=== PATIENT | male | born 1975 | race African-American/Black ===

== ENCOUNTER 2018-01-10 17:56 | Emergency (ER) | payer SELFPAY ==
[2018-01-10] MEDS ORDERED: NORMAL SALINE 1000 ML 1,000 ML IV ONE (18:41)
[2018-01-10] MEDS ORDERED: NORMAL SALINE 1000 ML 1,000 ML IV PRN (18:41)
--- NOTE | 2018-01-10 18:43 | ER Document Report ---
ED Medical Screen (RME) - General Chief Complaint: ETOH Abuse Stated Complaint: ETOH Time Seen by Provider: 01/10/18 18:41 Notes: 42 years old male with a history of alcohol abuse presents today after drinking 24 cans of beer an hour ago. Requesting detox program. Denies any suicidal or homicidal ideation. Denies any drug abuse. Denies any other additional symptoms Appears under the influence of alcohol, very slow to answer the questions. TRAVEL OUTSIDE OF THE [place] IN LAST 30 DAYS: No - Related Data Allergies/Adverse Reactions: No Known Allergies Allergy (Verified 01/10/18 18:01) Past Medical History - Social History Chew tobacco use (# tins/day): No Frequency of alcohol use: Heavy Drug Abuse: None Renal/ Medical History: Denies: Hx Peritoneal Dialysis Physical Exam - Vital signs Vitals: Temp Pulse Resp BP Pulse Ox 98.6 F 98 16 131/79 H 98 01/10/18 18:12 01/10/18 18:12 01/10/18 18:12 01/10/18 18:12 01/10/18 18:12 Course - Vital Signs Vital signs: Temp Pulse Resp BP Pulse Ox 98.6 F 98 16 131/79 H 98 01/10/18 18:12 01/10/18 18:12 01/10/18 18:12 01/10/18 18:12 01/10/18 18:12
[2018-01-10 19:20] LABS: ABSOLUTE EOSINOPHILS # (AUTO) 0.2 10^3/uL (0.0-0.6); ABSOLUTE LYMPHOCYTES (AUTO) 3.7 10^3/uL (0.5-4.7); ABSOLUTE MONOCYTES (AUTO) 0.7 10^3/uL (0.1-1.4); BASOPHILS % (AUTO) 0.6 % (0-2); EOSINOPHILS % (AUTO) 1.9 % (0-6); HEMATOCRIT 44.6 % (37.9-51.0); HEMOGLOBIN 15.7 g/dL (13.5-17.0); LYMPHOCYTES % (AUTO) 43.2 % (13-45); MEAN CORPUSCULAR HEMOGLOBIN 32.1 pg (27.0-33.4); MEAN CORPUSCULAR HGB CONC 35.3 g/dL (32.0-36.0); MEAN CORPUSCULAR VOLUME 91 fl (80-97); MONOCYTES % (AUTO) 7.7 % (3-13); PLATELET COUNT 279 10^3/uL (150-450); RED BLOOD COUNT 4.89 10^6/uL (4.35-5.55); RED CELL DISTRIBUTION WIDTH 13.4 % (11.5-14.0); SEGMENTED NEUTROPHILS % (AUTO) 46.6 % (42-78); TOTAL CELLS COUNTED % (AUTO) 100 %; WHITE BLOOD COUNT 8.6 10^3/uL (4.0-10.5)
[2018-01-10 19:38] LABS: ALANINE AMINOTRANSFERASE 20 U/L (21-72); ALBUMIN 4.6 g/dL (3.5-5.0); ALKALINE PHOSPHATASE 105 U/L (38-126); ANION GAP 12 (5-19); ASPARTATE AMINO TRANSFERASE 49 U/L (17-59); BILIRUBIN,DIRECT 0.2 mg/dL (0.0-0.4); BILIRUBIN,TOTAL 0.7 mg/dL (0.2-1.3); BLOOD UREA NITROGEN 12 mg/dL (7-20); CARBON DIOXIDE 29 mmol/L (22-30); CHLORIDE 104 mmol/L (98-107); GLUCOSE 98 mg/dL (75-110); POTASSIUM 4.4 mmol/L (3.6-5.0); SODIUM 145.4 mmol/L (137-145); TOTAL PROTEIN 8.6 g/dL (6.3-8.2)
[2018-01-10 19:50] LABS: ACETAMINOPHEN < 10 ug/mL (10-30); SALICYLATE < 1.0 mg/dL (2.0-20.0)
[2018-01-10 19:51] LABS: ALCOHOL 394 mg/dL (NONE DETECTED)
--- NOTE | 2018-01-10 20:22 | ER Document Report ---
ED General - General Chief Complaint: ETOH Abuse Stated Complaint: ETOH Time Seen by Provider: 01/10/18 18:41 Notes: Patient is a 42-year-old male with a past medical history of abuse, currently homeless who presents by EMS apparently for being intoxicated. The patient denies any complaints. He did not contact EMS. He states that he drank 24 beers prior to arrival today. Admits to long-standing history of alcohol abuse. Denies any additional complaints. States this is a typical drinking pattern for him. He denies any acute medical complaints. History is otherwise limited secondary to the patient's intoxication. TRAVEL OUTSIDE OF THE [place] IN LAST 30 DAYS: No - Related Data Allergies/Adverse Reactions: No Known Allergies Allergy (Verified 01/10/18 18:01) Past Medical History - General Information source: Patient - Social History Smoking Status: Current Every Day Smoker Chew tobacco use (# tins/day): No Frequency of alcohol use: Heavy Drug Abuse: None Lives with: Homeless Family History: Reviewed & Not Pertinent Patient has suicidal ideation: No Patient has homicidal ideation: No Renal/ Medical History: Denies: Hx Peritoneal Dialysis Review of Systems - Review of Systems Notes: Constitutional: Negative for fever. HENT: Negative for sore throat. Eyes: Negative for visual changes. Cardiovascular: Negative for chest pain. Respiratory: Negative for shortness of breath. Gastrointestinal: Negative for abdominal pain, vomiting or diarrhea. Genitourinary: Negative for dysuria. Musculoskeletal: Negative for back pain. Skin: Negative for rash. Neurological: Negative for headaches, weakness or numbness. 10 point ROS negative except as marked above and in HPI. Physical Exam - Vital signs Vitals: Temp Pulse Resp BP Pulse Ox 98.6 F 98 16 131/79 H 98 01/10/18 18:12 01/10/18 18:12 01/10/18 18:12 01/10/18 18:12 01/10/18 18:12 Notes: PHYSICAL EXAMINATION: GENERAL: Intoxicated, lethargic but wakes to loud voice HEAD: Atraumatic, normocephalic. EYES: Pupils equal round and reactive to light, extraocular movements intact, sclera anicteric, conjunctiva are normal. ENT: nares patent, oropharynx clear without exudates. Moist mucous membranes. NECK: Normal range of motion, supple without lymphadenopathy LUNGS: Breath sounds clear to auscultation bilaterally and equal. No wheezes rales or rhonchi. HEART: Regular rate and rhythm without murmurs ABDOMEN: Soft, nontender, normoactive bowel sounds. No guarding, no rebound. No masses appreciated. EXTREMITIES: Normal range of motion, no pitting or edema. No cyanosis. NEUROLOGICAL: No focal neurological deficits. Moves all extremities spontaneously and on command. PSYCH: Intoxicated SKIN: Warm, Dry, normal turgor, no rashes or lesions noted. Course - Re-evaluation Re-evalutation: 01/10/18 20:22 Patient presents with acute alcohol intoxication without any additional acute complaints. Admits to heavy alcohol use today. No evidence of trauma on exam. Patient was monitored in the emergency department until they were clinically sober. Able to ambulate and talking clear sentences prior to discharge. Tolerating oral intake without difficulty. The patient has been instructed to seek help for alcohol detoxification. Will discharge and return precautions and follow-up recommendations. - Vital Signs Vital signs: Temp Pulse Resp BP Pulse Ox 98.6 F 98 16 131/79 H 98 01/10/18 18:12 01/10/18 18:12 01/10/18 18:38 01/10/18 18:12 01/10/18 18:12 - Laboratory Result Diagrams: 01/10/18 19:00 01/10/18 19:00 Laboratory results interpreted by me: 01/10/18 19:00 Sodium 145.4 H ALT 20 L Total Protein 8.6 H Salicylates < 1.0 L Acetaminophen < 10 L Serum Alcohol 394 H* Discharge - Discharge Clinical Impression: Alcohol abuse Alcohol intoxication Qualifiers: Complication of substance-induced condition: uncomplicated Qualified Code(s): F10.920 - Alcohol use, unspecified with intoxication, uncomplicated Condition: Good Disposition: HOME, SELF-CARE Additional Instructions: You were seen in the emergency department today for being drunk. Being seen in the emergency department after drinking alcohol is a serious indicator that you have a problem with alcohol. You should seek help with the attached resources for your problem drinking. Please return to the emergency room immediately if you experience any concerning symptoms including high fevers, severe headache, chest pain, difficulty breathing, abdominal pain, slurred speech, numbness or weakness in your arms or legs, or any other symptom that concerns you.
[2018-01-11 01:28] VITALS: BP 130/74
--- NOTE | 2018-01-11 08:05 | EKG REPORT ---
SEVERITY:- NORMAL ECG - SINUS RHYTHM : Confirmed by: Emerson Dietz MD 11-Jan-2018 08:04:35
== END 2018-01-11 01:30 | disposition home or self-care (01) ==
LOC: ER 17:56
DX: F10.129 Alcohol abuse with intoxication, unspecified (principal); Z59.0 Homelessness; F17.200 Nicotine dependence, unspecified, uncomplicated
CPT/HCPCS: 93005; 99284; 96360; 96361; 36415; 80307 ×3; 85025; 80053; 93010; J7030

== ENCOUNTER 2018-02-26 08:35 | Emergency (ER) | payer SELFPAY ==
[2018-02-26] MEDS ORDERED: ASPIRIN 81 MG TABLET, CHEWABLE PO ONE (09:56)
--- NOTE | 2018-02-26 09:59 | ER Document Report ---
ED Medical Screen (RME) - General Chief Complaint: Chest Pain > 30 Stated Complaint: WEAKNESS Time Seen by Provider: 02/26/18 09:56 Information source: Patient, Law Enforcement, [facility] Records Notes: 42-year-old male with no reported past medical history presents in police custody after they were called out to a store where the patient was sleeping. At that time he requested transfer to the hospital and is currently complaining of chest pain, productive cough. Patient states chest pain has been present for approximately 3 days and has been constant. I have greeted and performed a rapid initial assessment of this patient. A comprehensive ED assessment and evaluation of the patient, analysis of test results and completion of medical decision making process we will be contacted by additional ED providers. PHYSICAL EXAMINATION: Vital signs reviewed GENERAL: Well-appearing, well-nourished and in no acute distress. LUNGS: No respiratory distress Musculoskeletal: Normal range of motion NEUROLOGICAL: Normal speech, normal gait. PSYCH: Normal mood, normal affect. SKIN: Warm, Dry, normal turgor, no rashes or lesions noted. TRAVEL OUTSIDE OF THE [place] IN LAST 30 DAYS: No - HPI Onset: Other Onset/Duration: Constant Quality of pain: Achy, Burning Severity: Mild Associated Symptoms: Chest pain, Cough (productive), Shortness of breath Exacerbated by: Denies Relieved by: Denies Similar symptoms previously: Yes Recently seen / treated by doctor: No - Related Data Frequency of alcohol use: Occasional Allergies/Adverse Reactions: No Known Allergies Allergy (Verified 02/26/18 08:55) Past Medical History Renal/ Medical History: Denies: Hx Peritoneal Dialysis Physical Exam - Vital signs Vitals: Temp Pulse Resp BP Pulse Ox 97.9 F 76 16 121/86 H 100 02/26/18 09:30 02/26/18 09:30 02/26/18 09:30 02/26/18 09:30 02/26/18 09:30 Course - Vital Signs Vital signs: Temp Pulse Resp BP Pulse Ox 97.9 F 76 16 121/86 H 100 02/26/18 09:30 02/26/18 09:30 02/26/18 09:30 02/26/18 09:30 02/26/18 09:30
[2018-02-26 10:54] LABS: ABSOLUTE BASOPHILS # (AUTO) 0.1 10^3/uL (0.0-0.2); ABSOLUTE EOSINOPHILS # (AUTO) 0.2 10^3/uL (0.0-0.6); ABSOLUTE LYMPHOCYTES (AUTO) 3.5 10^3/uL (0.5-4.7); ABSOLUTE MONOCYTES (AUTO) 0.5 10^3/uL (0.1-1.4); BASOPHILS % (AUTO) 1.5 % (0-2); EOSINOPHILS % (AUTO) 1.9 % (0-6); HEMATOCRIT 42.2 % (37.9-51.0); HEMOGLOBIN 14.9 g/dL (13.5-17.0); LYMPHOCYTES % (AUTO) 37.8 % (13-45); MEAN CORPUSCULAR HEMOGLOBIN 32.8 pg (27.0-33.4); MEAN CORPUSCULAR HGB CONC 35.2 g/dL (32.0-36.0); MEAN CORPUSCULAR VOLUME 93 fl (80-97); MONOCYTES % (AUTO) 5.2 % (3-13); PLATELET COUNT 294 10^3/uL (150-450); RED BLOOD COUNT 4.52 10^6/uL (4.35-5.55); RED CELL DISTRIBUTION WIDTH 13.6 % (11.5-14.0); SEGMENTED NEUTROPHILS % (AUTO) 53.6 % (42-78); TOTAL CELLS COUNTED % (AUTO) 100 %; WHITE BLOOD COUNT 9.3 10^3/uL (4.0-10.5)
[2018-02-26 11:17] LABS: ALANINE AMINOTRANSFERASE 23 U/L (21-72); ALBUMIN 4.9 g/dL (3.5-5.0); ALKALINE PHOSPHATASE 83 U/L (38-126); ANION GAP 14 (5-19); ASPARTATE AMINO TRANSFERASE 48 U/L (17-59); BILIRUBIN,DIRECT 0.2 mg/dL (0.0-0.4); BILIRUBIN,TOTAL 0.5 mg/dL (0.2-1.3); BLOOD UREA NITROGEN 12 mg/dL (7-20); CALCIUM 9.3 mg/dL (8.4-10.2); CARBON DIOXIDE 30 mmol/L (22-30); CHLORIDE 103 mmol/L (98-107); CREATINE KINASE 537 U/L (55-170); GLUCOSE 92 mg/dL (75-110); POTASSIUM 4.1 mmol/L (3.6-5.0); TOTAL PROTEIN 8.8 g/dL (6.3-8.2)
--- NOTE | 2018-02-26 11:26 | EKG REPORT ---
SEVERITY:- NORMAL ECG - SINUS RHYTHM : Confirmed by: Vanessa Jacobs 26-Feb-2018 11:26:00
[2018-02-26 11:27] LABS: CREATINE KINASE MB 4.87 ng/mL (<4.55); TROPONIN I < 0.012 ng/mL
--- NOTE | 2018-02-26 11:57 | RADIOLOGY REPORT (SQ) ---
EXAM DESCRIPTION: CHEST 2 VIEWS COMPLETED DATE/TIME: 02/26/2018 11:12 am REASON FOR STUDY: chest pain COMPARISON: None. EXAM PARAMETERS: NUMBER OF VIEWS: two views TECHNIQUE: Digital Frontal and Lateral radiographic views of the chest acquired. RADIATION DOSE: NA LIMITATIONS: none FINDINGS: LUNGS AND PLEURA: No opacities, masses or pneumothorax. No pleural effusion. MEDIASTINUM AND HILAR STRUCTURES: No masses or contour abnormalities. HEART AND VASCULAR STRUCTURES: Heart normal size. No evidence for failure. BONES: No acute findings. HARDWARE: None in the chest. OTHER: No other significant finding. IMPRESSION: No acute abnormality of the lungs. No focal airspace opacity. TECHNICAL DOCUMENTATION: JOB ID: [id number] [employer]- All Rights Reserved Reading location - IP/workstation name: [email or web address]
[2018-02-26 12:08] LABS: URINE AMPHETAMINES SCREEN NEGATIVE; URINE BARBITURATES SCREEN NEGATIVE; URINE BENZODIAZEPINES SCREEN NEGATIVE; URINE COCAINE SCREEN NEGATIVE; URINE MARIJUANA (THC) SCREEN NEGATIVE; URINE METHADONE SCREEN NEGATIVE; URINE PHENCYCLIDINE SCREEN NEGATIVE
[2018-02-26] MEDS ORDERED: METOCLOPRAMIDE HCL ORAL SOLN 10 MG/10 ML UDCUP PO ONE (14:50)
[2018-02-26] MEDS ORDERED: LIDOCAINE 2% VISCOUS SOLN 20 ML UDCUP PO ONE (14:50)
[2018-02-26] MEDS ORDERED: MAG HYDROX/AL HYDROX/SIMETH SUSP 30 ML UDCUP PO ONE (14:50)
--- NOTE | 2018-02-26 15:02 | ER Document Report ---
ED General - General Chief Complaint: Chest Pain > 30 Stated Complaint: WEAKNESS Time Seen by Provider: 02/26/18 09:56 Mode of Arrival: Ambulatory Information source: Patient TRAVEL OUTSIDE OF THE [place] IN LAST 30 DAYS: No - HPI Patient complains to provider of: Weakness Onset: Other - 42-year-old man who was detained by the police for public intoxication and trespassing that requested to be transported to the emergency room for evaluation of generalized weakness that he developed upon being arrested. He states that his primary issue is that he has a bad alcoholic but has no desire to stop drinking at this time. He denies fevers or chills, denies abdominal pain diarrhea constipation dysuria rashes endorses vague chest pain some low-grade headache rest of history is limited secondary to patient's refusal to communicate. - Related Data Allergies/Adverse Reactions: No Known Allergies Allergy (Verified 02/26/18 08:55) Past Medical History - General Information source: Patient, Law Enforcement, [facility] Records - Social History Smoking Status: Current Every Day Smoker Frequency of alcohol use: Occasional Drug Abuse: None Family History: Reviewed & Not Pertinent Patient has suicidal ideation: No Patient has homicidal ideation: No Renal/ Medical History: Denies: Hx Peritoneal Dialysis Review of Systems - Review of Systems -: Yes All other systems reviewed and negative Physical Exam - Vital signs Vitals: Temp Pulse Resp BP Pulse Ox 97.9 F 76 16 121/86 H 100 02/26/18 09:30 02/26/18 09:30 02/26/18 09:30 02/26/18 09:30 02/26/18 09:30 - General General appearance: Appears well, Alert - HEENT Head: Normocephalic, Atraumatic Eyes: Normal Pupils: PERRL - Respiratory Respiratory status: No respiratory distress Chest status: Nontender Breath sounds: Normal Chest palpation: Normal - Cardiovascular Rhythm: Regular Heart sounds: Normal auscultation Murmur: No - Abdominal Inspection: Normal Distension: No distension Bowel sounds: Normal Tenderness: Nontender Organomegaly: No organomegaly - Back Back: Normal, Nontender - Extremities General upper extremity: Normal inspection, Nontender, Normal color, Normal ROM , Normal temperature General lower extremity: Normal inspection, Nontender, Normal color, Normal ROM , Normal temperature, Normal weight bearing. No: Stepan's sign - Neurological Neuro grossly intact: Yes Cognition: Normal Orientation: AAOx4 [place] Coma Scale Eye Opening: Spontaneous [place] Coma Scale Verbal: Oriented [place] Coma Scale Motor: Obeys Commands [place] Coma Scale Total: 15 Speech: Normal Motor strength normal: LUE, RUE, LLE, RLE Sensory: Normal - Psychological Associated symptoms: Normal affect, Normal mood Course - Re-evaluation Re-evalutation: 02/26/18 17:51 42-year-old that presents after being arrested for trespassing for generalized weakness and malaise is a chronic alcoholic says that that is his problem has no desire to stop drinking. We will plan for troponin x2 monitoring in the emergency department reassessment and labs. EKG is nondiagnostic. Upon evaluation the patient is sleeping in his room with his head under the covers refuses to answer questions but intermittently will respond when prompted repeatedly. Negative initial troponin negative second troponin, unremarkable labs, chest pain-free at this time neurologically intact. Do not believe that this patient warrants further investigation at this time, he appears hemodynamically stable and overall well. Current plan will be for this patient undergo discharge with return precautions and encouraged follow-up for alcohol cessation as well as smoking cessation. - Vital Signs Vital signs: Temp Pulse Resp BP Pulse Ox 97.9 F 76 12 130/83 H 96 02/26/18 09:30 02/26/18 09:30 02/26/18 15:00 02/26/18 15:00 02/26/18 15:00 - Laboratory Result Diagrams: 02/26/18 10:30 02/26/18 10:30 Laboratory results interpreted by me: 02/26/18 02/26/18 10:30 10:30 Sodium 147.0 H Creatine Kinase 537 H CK-MB (CK-2) 4.87 H Total Protein 8.8 H Discharge - Discharge Clinical Impression: Alcohol abuse, Malaise and fatigue Chest pain Qualifiers: Chest pain type: unspecified Qualified Code(s): R07.9 - Chest pain, unspecified Condition: Good Disposition: HOME, SELF-CARE Instructions: Chronic Alcoholism ([facility]), Chest Pain of Unclear Cause ([facility]) Additional Instructions: You were seen today in the emergency department for your generalized weakness and fatigue. You had an evaluation including blood tests as well as an x-ray and markers for damage to your heart. No obvious cause was identified for the discomfort that she had. You do note that you are drinking alcohol heavily and have no desire to stop. You should stop smoking cigarettes, if you decide to stop drinking you should seek help. Return for worsening chest pain, shortness of breath fevers or chills. Otherwise schedule an appointment with your primary physician this week for reevaluation. Forms: Smoking Cessation Education Referrals: [facility] [Outside] - Follow up as needed
[2018-02-26 15:44] VITALS: BP 130/83
--- NOTE | 2018-02-28 09:35 | EKG REPORT ---
SEVERITY:- NORMAL ECG - SINUS RHYTHM : Confirmed by: Vanessa Jacobs 28-Feb-2018 09:33:44
== END 2018-02-26 15:44 | disposition home or self-care (01) ==
LOC: ER 08:35
DX: R07.9 Chest pain, unspecified (principal); F10.10 Alcohol abuse, uncomplicated; R53.81 Other malaise; R53.83 Other fatigue; R53.1 Weakness; F17.200 Nicotine dependence, unspecified, uncomplicated
CPT/HCPCS: 93005; 99285; 36415; 82553; 82550; 85025; 80053; 84484; 80307; 71046; 93010; J3490

== ENCOUNTER 2018-02-27 18:42 | Emergency (ER) | payer SELFPAY ==
[2018-02-27] MEDS ORDERED: ASPIRIN 81 MG TABLET, CHEWABLE PO ONE (19:38)
[2018-02-27 19:57] LABS: ABSOLUTE BASOPHILS # (AUTO) 0.1 10^3/uL (0.0-0.2); ABSOLUTE EOSINOPHILS # (AUTO) 0.2 10^3/uL (0.0-0.6); ABSOLUTE MONOCYTES (AUTO) 0.6 10^3/uL (0.1-1.4); EOSINOPHILS % (AUTO) 2.8 % (0-6); HEMOGLOBIN 13.3 g/dL (13.5-17.0); TOTAL CELLS COUNTED % (AUTO) 100 %
[2018-02-27 20:01] LABS: INTERNATIONAL RATION (INR) 0.85; PROTHROMBIN TIME 12.1 SEC (11.4-15.4)
[2018-02-27 20:09] LABS: ABSOLUTE LYMPHOCYTES (AUTO) 3.6 10^3/uL (0.5-4.7); BASOPHILS % (AUTO) 1.7 % (0-2); HEMATOCRIT 37.3 % (37.9-51.0); LYMPHOCYTES % (AUTO) 47.8 % (13-45); MEAN CORPUSCULAR HEMOGLOBIN 33.3 pg (27.0-33.4); MEAN CORPUSCULAR HGB CONC 35.6 g/dL (32.0-36.0); MEAN CORPUSCULAR VOLUME 94 fl (80-97); MONOCYTES % (AUTO) 8.4 % (3-13); PLATELET COUNT 240 10^3/uL (150-450); RED BLOOD COUNT 3.99 10^6/uL (4.35-5.55); RED CELL DISTRIBUTION WIDTH 13.4 % (11.5-14.0); SEGMENTED NEUTROPHILS % (AUTO) 39.3 % (42-78); WHITE BLOOD COUNT 7.6 10^3/uL (4.0-10.5)
[2018-02-27 20:23] LABS: ALANINE AMINOTRANSFERASE 27 U/L (21-72); ALBUMIN 4.2 g/dL (3.5-5.0); ALKALINE PHOSPHATASE 121 U/L (38-126); ANION GAP 14 (5-19); ASPARTATE AMINO TRANSFERASE 45 U/L (17-59); BILIRUBIN,DIRECT 0.3 mg/dL (0.0-0.4); BILIRUBIN,TOTAL 0.5 mg/dL (0.2-1.3); BLOOD UREA NITROGEN 12 mg/dL (7-20); CALCIUM 8.6 mg/dL (8.4-10.2); CARBON DIOXIDE 27 mmol/L (22-30); CHLORIDE 108 mmol/L (98-107); CREATINE KINASE 596 U/L (55-170); GLUCOSE 110 mg/dL (75-110); POTASSIUM 4.1 mmol/L (3.6-5.0); SODIUM 148.5 mmol/L (137-145); TOTAL PROTEIN 7.4 g/dL (6.3-8.2)
[2018-02-27 20:34] LABS: CREATINE KINASE MB 4.55 ng/mL (<4.55); TROPONIN I < 0.012 ng/mL
--- NOTE | 2018-02-27 20:43 | RADIOLOGY REPORT (SQ) ---
EXAM DESCRIPTION: CHEST SINGLE VIEW COMPLETED DATE/TIME: 02/27/2018 8:04 pm REASON FOR STUDY: CP COMPARISON: 02/26/2018 EXAM PARAMETERS: NUMBER OF VIEWS: One view. TECHNIQUE: Single frontal radiographic view of the chest acquired. RADIATION DOSE: NA LIMITATIONS: None. FINDINGS: LUNGS AND PLEURA: No opacities, masses or pneumothorax. No pleural effusion. MEDIASTINUM AND HILAR STRUCTURES: No masses. Contour normal. HEART AND VASCULAR STRUCTURES: Heart normal in size. Normal vasculature. BONES: No acute findings. HARDWARE: None in the chest. OTHER: No other significant finding. IMPRESSION: NO ACUTE RADIOGRAPHIC FINDING IN THE CHEST. TECHNICAL DOCUMENTATION: JOB ID: [id number] [employer]- All Rights Reserved Reading location - IP/workstation name: [email or web address]
--- NOTE | 2018-02-28 00:15 | ER Document Report ---
ED General - General Chief Complaint: Chest Pain Stated Complaint: CHEST PAIN Time Seen by Provider: 02/27/18 19:30 Notes: Patient is a 42-year-old male obviously intoxicated who presents to the emergency department chief complaint chest pain. Patient does not very forthcoming with any information. Patient opens his eyes and looks at you but then will not answer initial questions. Report obtained from EMS that was done given to nursing staff states [facility] was initially called to a intoxicated person outside of a restaurant. [facility] states upon their evaluation they noted the patient was intoxicated and then started complaining of chest pains. [facility] called for EMS assistance and the patient was transported to the emergency room. Patient tells nursing staff that he has chest pain in the center of his chest, patient does not answer any of my questions initially asked of him. Patient does follow commands as far as physical exam is concerned but will not talk. Nursing staff states they did see the patient get up and walk to use the restroom with no obvious distress and the patient has spoke in full sentences to them stating he did have chest pain. Per nursing staff patient has no medical problems, is on no medications, has no allergies. TRAVEL OUTSIDE OF THE [place] IN LAST 30 DAYS: No - Related Data Allergies/Adverse Reactions: No Known Allergies Allergy (Verified 02/26/18 08:55) Past Medical History - General Information source: Emergency Med Personnel - Social History Smoking Status: Current Every Day Smoker Frequency of alcohol use: Heavy Family History: Reviewed & Not Pertinent Patient has suicidal ideation: No Patient has homicidal ideation: No Renal/ Medical History: Denies: Hx Peritoneal Dialysis Review of Systems - Review of Systems -: Yes ROS unobtainable due to patient's medical condition - Patient is heavily intoxicated and will not answer any of my questions. Physical Exam - Vital signs Vitals: Pulse Ox 97 02/27/18 18:54 - Notes Notes: GENERAL: Alert, is choosing to be nonverbal to me, no acute distress. Smells heavily of EtOH HEAD: Normocephalic, atraumatic. EYES: Pupils equal, round, and reactive to light. Extraocular movements intact. ENT: Oral mucosa moist, tongue midline. NECK: Full range of motion. Supple. Trachea midline. LUNGS: Clear to auscultation bilaterally, no wheezes, rales, or rhonchi. No respiratory distress. HEART: Regular rate and rhythm. No murmur ABDOMEN: Soft, non-tender. Non-distended. Bowel sounds present in all 4 quadrants. EXTREMITIES: Moves all 4 extremities spontaneously. No edema, normal radial and dorsalis pedis pulses bilaterally. No cyanosis. 5 out of 5 strength all 4 extremities. SKIN: Warm, dry, normal turgor. No rashes or lesions noted. Course - Re-evaluation Re-evalutation: It was found by nursing staff via EMS that [employer] was initially questioning the patient due to him being intoxicated in public when the patient then stated he had chest pain. EMS then arrived on the scene found and obviously intoxicated patient complaining of chest pain. [facility] and EMS state that there was no fall or injury to the patient. States he was just sitting outside of a restaurant. Nursing staff is stating that upon EMS transferring patient care the patient was able to stand up and walk with no difficulties, and use the bathroom. They also noted that he was able to speak in full sentences stating that he has chest pain. No CT warranted at this time due to no history of trauma. Patient will not answer questions that I ask of him but does follow simple commands as far as physical exam goes 02/28/18 00:07 Patient was able to walk around the emergency room with a steady gait. Patient was able to tell me that it is February 2018 and he did know that he was at [facility]. Patient is currently denying any chest pain or pressure at this time. Patient appears to be clinically sober at this time he is asking for food. Discussed patient's lab results with him at bedside and offered him a food tray. Discussed his need to stop partaking and EtOH beverages And that I will give him information on [facility] to continue with his medical care. - Vital Signs Vital signs: Temp Pulse Resp BP Pulse Ox 98.2 F 98 16 138/85 H 99 02/28/18 00:50 02/28/18 00:50 02/28/18 00:50 02/28/18 00:50 02/28/18 00:50 - Laboratory Result Diagrams: 02/27/18 19:00 02/27/18 19:00 Laboratory results interpreted by me: 02/27/18 02/27/18 19:00 19:00 RBC 3.99 L Hgb 13.3 L Hct 37.3 L Seg Neutrophils % 39.3 L Lymphocytes % 47.8 H Sodium 148.5 H Chloride 108 H Creatine Kinase 596 H Discharge - Discharge Clinical Impression: Alcohol abuse Chest pain Qualifiers: Chest pain type: other chest pain Qualified Code(s): R07.89 - Other chest pain Condition: Stable Disposition: HOME, SELF-CARE Instructions: Acute Alcohol Intoxication ([facility]), Chest Pain of Unclear Cause ( [facility]) Additional Instructions: As we discussed you have been seen and treated in the emergency department for your chest pain. It does appear that you had partaking in alcohol this evening. You need to stop drinking alcohol or it will inevitably make your liver fail. I have given you phone numbers for the [place] [facility] with which you should follow-up to get your continued medical care. Please return to the emergency room for any other concerning symptoms. Referrals: [facility] [Provider Group] - Follow up as needed
[2018-02-28 00:50] VITALS: BP 138/85
--- NOTE | 2018-03-01 09:40 | EKG REPORT ---
SEVERITY:- NORMAL ECG - SINUS RHYTHM : Confirmed by: Vanessa Jacobs 01-Mar-2018 09:39:31
== END 2018-02-28 00:50 | disposition home or self-care (01) ==
LOC: ER 18:42
DX: R07.9 Chest pain, unspecified (principal); F10.129 Alcohol abuse with intoxication, unspecified; F17.200 Nicotine dependence, unspecified, uncomplicated
CPT/HCPCS: 36415; 71045; 80053; 82550; 82553; 84484; 85025; 85610; 93005; 93010; 99285

== ENCOUNTER 2018-02-28 03:01 | Emergency (ER) | payer SELFPAY ==
--- NOTE | 2018-02-28 04:52 | ER Document Report ---
ED General - General Chief Complaint: Chest Pain Stated Complaint: CHEST PAIN Time Seen by Provider: 02/28/18 03:24 Notes: Patient is a 42-year-old male presenting to the emergency department complaining of generalized chest pain. Patient was to this facility yesterday after being confronted by [facility] and brought into the emergency room for generalized weakness. In reviewing past charts patient's workup was negative at that time. Patient was also confronted by Kami SOLO this evening for public intoxication. [facility] and EMS states the patient was then complaining of chest pain which is why he presents to the emergency room via EMS. Patient's workup this evening was also negative with 2- troponins and no EKG changes. Patient stated he no longer had chest pain, asked for some food and was then discharged. Patient re-presents currently because he states he has no place to go. Patient states he is homeless. When asked if he just needs a place to go and wants us to contact social work to assist him in shelters he says yes and then he also says he does have chest pain. Patient will not elaborate on the chest pain that he has. Patient smells of EtOH but is conscious alert and oriented x4. Patient denies any past medical history, denies taking any medications, denies any medical allergies. TRAVEL OUTSIDE OF THE [place] IN LAST 30 DAYS: No - Related Data Allergies/Adverse Reactions: No Known Allergies Allergy (Verified 02/26/18 08:55) Past Medical History - General Information source: Patient - Social History Smoking Status: Current Every Day Smoker Frequency of alcohol use: Heavy Lives with: Homeless Family History: Reviewed & Not Pertinent Patient has suicidal ideation: No Patient has homicidal ideation: No Renal/ Medical History: Denies: Hx Peritoneal Dialysis Review of Systems - Review of Systems Constitutional: No symptoms reported EENT: No symptoms reported Cardiovascular: See HPI Respiratory: No symptoms reported Gastrointestinal: No symptoms reported Genitourinary: No symptoms reported Male Genitourinary: No symptoms reported Musculoskeletal: No symptoms reported Skin: No symptoms reported Hematologic/Lymphatic: No symptoms reported Neurological/Psychological: No symptoms reported Physical Exam - Notes Notes: GENERAL: Alert, interacts well. No acute distress. Smells of EtOH. HEAD: Normocephalic, atraumatic. EYES: Pupils equal, round, and reactive to light. Extraocular movements intact. ENT: Oral mucosa moist, tongue midline. NECK: Full range of motion. Supple. Trachea midline. LUNGS: Clear to auscultation bilaterally, no wheezes, rales, or rhonchi. No respiratory distress. HEART: Regular rate and rhythm. No murmur ABDOMEN: Soft, non-tender. Non-distended. Bowel sounds present in all 4 quadrants. EXTREMITIES: Moves all 4 extremities spontaneously. No edema, normal radial and dorsalis pedis pulses bilaterally. No cyanosis. BACK: no cervical, thoracic, lumbar midline tenderness. No saddle anesthesia, normal distal neurovascular exam. NEUROLOGICAL: Alert and oriented x3. Normal speech. cranial nerves II through XII grossly intact PSYCH: Normal affect, normal mood. SKIN: Warm, dry, normal turgor. No rashes or lesions noted. Course - Re-evaluation Re-evalutation: 02/28/18 04:[address] Alvarado who states to get one more troponin. Troponin at this time is negative. EKG continues to reveal no ST segment changes. When I discussed these results with patient at bedside he asked if he could sleep for longer. Discussed with charge nurse the patient will stay in the emergency room awaiting social work consult in the morning for homeless shelters. Patient is denying any chest pain at this time, just asking to sleep. Vitals stable, nursing notes reviewed. 02/28/18 06:39 Nursing staff brings to my attention that the patient eloped. Discharge - Discharge Disposition: ELOPED
--- NOTE | 2018-02-28 09:35 | EKG REPORT ---
SEVERITY:- NORMAL ECG - SINUS RHYTHM : Confirmed by: Vanessa Jacobs 28-Feb-2018 09:33:39
== END 2018-02-28 06:33 | disposition left against medical advice (07) ==
LOC: ER 03:01
DX: R07.9 Chest pain, unspecified (principal); R53.1 Weakness; F17.200 Nicotine dependence, unspecified, uncomplicated
CPT/HCPCS: 36415; 84484; 93005; 93010; 99281

== ENCOUNTER 2018-03-01 04:00 | Emergency (ER) | payer SELFPAY ==
[2018-03-01 04:05] VITALS: BP 150/83
--- NOTE | 2018-03-01 04:51 | ER Document Report ---
ED General - General Chief Complaint: Chest Pain Stated Complaint: CHEST PAIN Time Seen by Provider: 03/01/18 04:33 Notes: Patient is a 42-year-old male well-known to the emergency room complaining of chest pain. Initially states "I just made a place to sleep." Upon further questioning he then states he has left-sided chest pain Patient states he has chest pain over his left chest that is non radiating. Patient denies pain changes upon inspiration or palpation. Patient states is the same pain that he had last night. Patient states the pain has not changed at all since he eloped from the emergency room yesterday. Patient admits that he has no place to go. Patient denies shortness of breath, diaphoresis, vomiting, nausea, diarrhea, fever. Patient does admit to drinking alcohol this evening. Past medical history: None Medications: None Allergies: None TRAVEL OUTSIDE OF THE [place] IN LAST 30 DAYS: No - Related Data Allergies/Adverse Reactions: No Known Allergies Allergy (Verified 02/26/18 08:55) Past Medical History - General Information source: Patient - Social History Smoking Status: Current Every Day Smoker Frequency of alcohol use: Heavy Lives with: Homeless Family History: Reviewed & Not Pertinent Patient has suicidal ideation: No Patient has homicidal ideation: No Renal/ Medical History: Denies: Hx Peritoneal Dialysis Review of Systems - Review of Systems Constitutional: No symptoms reported EENT: No symptoms reported Cardiovascular: See HPI Respiratory: No symptoms reported Gastrointestinal: No symptoms reported Genitourinary: No symptoms reported Male Genitourinary: No symptoms reported Musculoskeletal: No symptoms reported Skin: No symptoms reported Hematologic/Lymphatic: No symptoms reported Neurological/Psychological: No symptoms reported Physical Exam - Vital signs Vitals: Temp Pulse Resp BP Pulse Ox 97.8 F 119 H 18 150/83 H 97 03/01/18 04:04 03/01/18 04:04 03/01/18 04:04 03/01/18 04:04 03/01/18 04:04 - Notes Notes: GENERAL: Alert, interacts well. No acute distress. Smells heavily of EtOH, patient is noted to have EKG stickers still on his body, also noted to have the Tegaderm where his IV was placed yesterday with no IV access, no bleeding at site. HEAD: Normocephalic, atraumatic. EYES: Pupils equal, round, and reactive to light. Extraocular movements intact. ENT: Oral mucosa moist, tongue midline. [Nares patent, no nasal septal hematoma , TM's intact.] NECK: Full range of motion. Supple. Trachea midline. LUNGS: Clear to auscultation bilaterally, no wheezes, rales, or rhonchi. No respiratory distress. HEART: Tachycardic rate and rhythm. No murmur ABDOMEN: Soft, non-tender. Non-distended. Bowel sounds present in all 4 quadrants. EXTREMITIES: Moves all 4 extremities spontaneously. No edema, normal radial and dorsalis pedis pulses bilaterally. No cyanosis. BACK: no cervical, thoracic, lumbar midline tenderness. No saddle anesthesia, normal distal neurovascular exam. NEUROLOGICAL: Alert and oriented x3. Normal speech. cranial nerves II through XII grossly intact. SKIN: Warm, dry, normal turgor. No rashes or lesions noted. Course - Re-evaluation Re-evalutation: 03/01/18 04:51 Patient was to this facility 3 times over the last 72 hours for generalized weakness and chest pain. I personally saw the patient twice within 24 hours for chest pain. Patient had 3 total negative troponins. Patient states that the chest pain that he had was the same that he had last night when I personally evaluated him. Patient states the pain has not increased or decreased or changed at all. Patient's EKG shows sinus rhythm QTc [address] segment elevations or depressions or T wave inversions. Discussed this case at length with Dr. Henriquez who states with multiple negative troponins and no change in the patient's chest pain since his last visit to the emergency room after he eloped and a negative EKG there is no need to repeat the troponin. Dr. Henriquez states the Pt. can be d/c at this time. Vitals stable. - Vital Signs Vital signs: Temp Pulse Resp BP Pulse Ox 97.8 F 119 H 18 150/83 H 97 03/01/18 04:04 03/01/18 04:04 03/01/18 04:04 03/01/18 04:04 03/01/18 04:04 Discharge - Discharge Clinical Impression: Alcohol abuse Chest pain Qualifiers: Chest pain type: unspecified Qualified Code(s): R07.9 - Chest pain, unspecified Condition: Stable Disposition: HOME, SELF-CARE Instructions: Chest Pain of Unclear Cause ([facility]), Chronic Alcoholism ([facility])
== END 2018-03-01 04:59 | disposition home or self-care (01) ==
LOC: ER 04:00
DX: R07.9 Chest pain, unspecified (principal); F10.10 Alcohol abuse, uncomplicated; F17.200 Nicotine dependence, unspecified, uncomplicated
CPT/HCPCS: 99283

== ENCOUNTER 2018-04-08 00:26 | Emergency (ER) | payer SELFPAY ==
--- NOTE | 2018-04-08 01:29 | RADIOLOGY REPORT (SQ) ---
EXAM DESCRIPTION: XR CHEST 1 VIEW COMPLETED DATE/TME: 04/08/2018 00:55 CLINICAL HISTORY: 42 years, Male, cp COMPARISON: 02/27/2018 chest NUMBER OF VIEWS: 1 TECHNIQUE: AP portable chest LIMITATIONS: None. FINDINGS: The heart size is stable. Calcified granuloma right upper lobe. Lungs are otherwise clear. No pneumothorax IMPRESSION: No acute cardiopulmonary process copyright 2010 [employer]- All Rights Reserved
--- NOTE | 2018-04-08 02:17 | ER Document Report ---
ED General - General Chief Complaint: Chest Pain Stated Complaint: CHEST PAIN Time Seen by Provider: 04/08/18 00:53 Cannot obtain history due to: Intoxicated, Uncooperative Notes: Patient is a 42-year-old male, homeless, chronic alcohol abuse, presents stating that he is having palpitations in triage, then states that he is having chest pain to the nurse upon entering his room, denies any complaints to me. Patient admits to drinking heavily today. States that he would like to sleep in the room. History is otherwise limited secondary to the patient's degree of intoxication. TRAVEL OUTSIDE OF THE [place] IN LAST 30 DAYS: No - Related Data Allergies/Adverse Reactions: No Known Allergies Allergy (Verified 02/26/18 08:55) Past Medical History - General Information source: Patient Cannot obtain history due to: Intoxicated - Social History Smoking Status: Current Every Day Smoker Frequency of alcohol use: Heavy Drug Abuse: None Lives with: Homeless Family History: Reviewed & Not Pertinent Renal/ Medical History: Denies: Hx Peritoneal Dialysis Review of Systems - Review of Systems Notes: Constitutional: Negative for fever. HENT: Negative for sore throat. Eyes: Negative for visual changes. Cardiovascular: Positive for intermittent chest pain, palpitations Respiratory: Negative for shortness of breath. Gastrointestinal: Negative for abdominal pain, vomiting or diarrhea. Genitourinary: Negative for dysuria. Musculoskeletal: Negative for back pain. Skin: Negative for rash. Neurological: Negative for headaches, weakness or numbness. 10 point ROS negative except as marked above and in HPI. Physical Exam - Vital signs Vitals: Temp Pulse Resp BP Pulse Ox 97.7 F 83 16 133/78 H 98 04/08/18 00:48 04/08/18 00:48 04/08/18 00:48 04/08/18 00:48 04/08/18 00:48 Interpretation: Normal Notes: PHYSICAL EXAMINATION: GENERAL: Intoxicated, no acute distress HEAD: Atraumatic, normocephalic. EYES: Pupils equal round and reactive to light, extraocular movements intact, sclera anicteric, conjunctiva are normal. ENT: nares patent, oropharynx clear without exudates. Moist mucous membranes. NECK: Normal range of motion, supple without lymphadenopathy LUNGS: Breath sounds clear to auscultation bilaterally and equal. No wheezes rales or rhonchi. HEART: Regular rate and rhythm without murmurs ABDOMEN: Soft, nontender, normoactive bowel sounds. No guarding, no rebound. No masses appreciated. EXTREMITIES: Normal range of motion, no pitting or edema. No cyanosis. NEUROLOGICAL: No focal neurological deficits. Moves all extremities spontaneously and on command. PSYCH: Intoxicated SKIN: Warm, Dry, normal turgor, no rashes or lesions noted. Course - Re-evaluation Re-evalutation: 04/08/18 02:30 Patient presents acutely intoxicated, states that he is here because of chest pain initially then states it is because of palpitations, then denies any complaints. It appears that the patient is primarily here because he is homeless and intoxicated. Alcohol level is 309. Troponin negative. Chest x- ray clear. EKG unremarkable. I do not clinically suspect any acute life threatening pathology. Patient has repeatedly requested to remain here in sleep, does not want to undergo further medical evaluation. I have informed patient that he should not be using the emergency department for this purpose, advised rehab, homeless intermediate information provided. At this time will discharge with return precautions and follow-up recommendations. Verbal discharge instructions given a the bedside and opportunity for questions given. Medication warnings reviewed. Patient is in agreement with this plan and has verbalized understanding of return precautions. - Vital Signs Vital signs: Temp Pulse Resp BP Pulse Ox 97.7 F 83 16 133/78 H 98 04/08/18 00:48 04/08/18 00:48 04/08/18 00:48 04/08/18 00:48 04/08/18 00:48 - Laboratory Laboratory results interpreted by me: 04/08/18 01:16 Serum Alcohol 309 H* - Diagnostic Test Radiology reviewed: Image reviewed, Reports reviewed Radiology results interpreted by me: 04/08/18 02:32 Chest x-ray: No acute infiltrate or pneumothorax - EKG Interpretation by Me Additional EKG results interpreted by me: 04/08/18 02:32 Sinus rhythm, rate 89. No ST elevations or depressions. QTC is 429. Discharge - Discharge Clinical Impression: Alcohol abuse, Homelessness Alcohol intoxication Qualifiers: Complication of substance-induced condition: uncomplicated Qualified Code(s): F10.920 - Alcohol use, unspecified with intoxication, uncomplicated Condition: Good Disposition: HOME, SELF-CARE Additional Instructions: You were seen in the emergency department today for being drunk. Being seen in the emergency department after drinking alcohol is a serious indicator that you have a problem with alcohol. The emergency department is not an appropriate place to come when you are intoxicated or do not have elsewhere to sleep. Please return to the emergency room immediately if you experience any concerning symptoms including high fevers, severe headache, chest pain, difficulty breathing, abdominal pain, slurred speech, numbness or weakness in your arms or legs, or any other symptom that concerns you.
[2018-04-08 02:40] VITALS: BP 121/75
--- NOTE | 2018-04-09 00:16 | EKG REPORT ---
SEVERITY:- BORDERLINE ECG - SINUS RHYTHM BORDERLINE T ABNORMALITIES, ANT-LAT LEADS : Confirmed by: Vanessa Jacobs 09-Apr-2018 00:15:36
== END 2018-04-08 02:40 | disposition home or self-care (01) ==
LOC: ER 00:26
DX: F10.120 Alcohol abuse with intoxication, uncomplicated (principal); Y90.8 Blood alcohol level of 240 mg/100 ml or more; Z59.0 Homelessness; R07.9 Chest pain, unspecified; R00.2 Palpitations; F17.200 Nicotine dependence, unspecified, uncomplicated
CPT/HCPCS: 36415; 71045; 80307; 84484; 93005; 93010; 99285

== ENCOUNTER 2018-04-08 16:56 | Emergency (ER) | payer SELFPAY ==
[2018-04-08 17:21] VITALS: BP 144/77
--- NOTE | 2018-04-09 00:16 | EKG REPORT ---
SEVERITY:- NORMAL ECG - SINUS RHYTHM : Confirmed by: Vanessa Jacobs 09-Apr-2018 00:15:28
== END 2018-04-08 18:30 | disposition left against medical advice (07) ==
LOC: ER 16:56
DX: Z53.21 Procedure and treatment not carried out due to patient leaving prior to being seen by health care provider (principal)
CPT/HCPCS: 93005; 93010

== ENCOUNTER 2018-04-09 00:13 | Emergency (ER) | payer SELFPAY ==
[2018-04-09] MEDS ORDERED: NORMAL SALINE 1000 ML 1,000 ML IV ONE (00:28)
--- NOTE | 2018-04-09 00:32 | ER Document Report ---
ED General - General Stated Complaint: CHEST PAIN/ETOH Time Seen by Provider: 04/09/18 00:23 Notes: Patient is a 42-year-old male presents with alcohol intoxication. He was found walking around the [place] intoxicated. The security guards therefore called the police. The police called the ambulance because they said that the patient was complaining of chest pain. Patient has been seen here a few times in the last few days because of alcohol intoxication. He always mentions chest pain but then eventually says that he wants a place to stay. Patient was discharged home the previous morning once he sobered up. Patient denies any chest pain at this time. It is hard to determine if he had a earlier the patient will not really answer his question. He does admit to drinking alcohol on a regular basis. He says that he just drinks alcohol consistently throughout the day. He cannot really tell me exactly how much he drinks in a day otherwise. He denies any traumas. No injuries. No headache. No current pain. No other complaints at this time. TRAVEL OUTSIDE OF THE [place] IN LAST 30 DAYS: No - Related Data Allergies/Adverse Reactions: No Known Allergies Allergy (Verified 02/26/18 08:55) Past Medical History - Social History Smoking Status: Unknown if Ever Smoked Frequency of alcohol use: Heavy Drug Abuse: None Family History: Reviewed & Not Pertinent Renal/ Medical History: Denies: Hx Peritoneal Dialysis Review of Systems - Review of Systems Notes: My Normal Review Basic REVIEW OF SYSTEMS: CONSTITUTIONAL : Denies fever, chills, or sweats. Denies recent illness. EENT: Denies eye, ear, throat, or mouth pain or symptoms. Denies nasal or sinus congestion. CARDIOVASCULAR: Had chest pain earlier which is now resolved. RESPIRATORY: Denies cough, cold, or chest congestion. Denies shortness of breath, difficulty breathing, or wheezing. GASTROINTESTINAL: Denies abdominal pain. Denies nausea, vomiting, or diarrhea. MUSCULOSKELETAL: Denies neck or back pain or joint pain or swelling. SKIN: Denies rash or skin lesions. NEUROLOGICAL: Denies altered mental status or loss of consciousness. Denies headache. Denies weakness or paralysis or loss of use of either side. Denies problems with gait or speech. Denies sensory or motor loss. ALL OTHER SYSTEMS REVIEWED AND NEGATIVE. Physical Exam - Vital signs Vitals: Resp BP 12 123/82 04/09/18 01:09 04/09/18 01:09 - Notes Notes: General Appearance: Well nourished, alert be seen toxic and with alcohol. Smells of alcohol., cooperative, no acute distress, no obvious discomfort. Vitals: reviewed, See vital signs table. Head: no swelling or tenderness to the head Eyes: PERRL, EOMI, Conjuctiva clear Mouth: No decreasd moisture Throat: No tonsillar inflammation, No airway obstruction, No lymphadenopathy Neck: Supple, no neck tenderness Lungs: No wheezing, No rales, No rhonci, No accessory muscle use, good air exchange bilaterally. Heart: Normal rate, Regular rythm, No murmur, no rub Abdomen: Normal BS, soft, No rigidity, No abdominal tenderness, No guarding, no rebound, no abdominal masses, no organomegaly Extremities: strength 5/5 in all extremities, good pulses in all extremities, no swelling or tenderness in the extremities, no edema. Skin: warm, dry, appropriate color, no rash Neuro: speech garbled from alcohol use, oriented x 2, normal affect, responds appropriately to most questions. Metric facial movements bilaterally. Patient has good strength in all 4 extremities. Gait not tested due to intoxication. Course - Re-evaluation Re-evalutation: 04/09/18 01:55 I reassessed the patient. He is currently sleeping comfortably but I did awaken him and he is easily arousable. He still obviously very intoxicated. I will patient go back to sleep and then reassess again later. 04/09/18 05:08 Evaluation patient is up and walk around the room. He is walking without ataxia.. His speech is not slurred. He is clinically sober at this time. He request to be discharged. I will discharge him. Patient told the police that he had chest pain however the patient denied any further chest pain when he arrived here his troponin and EKG are negative. I feel he is safe to be discharged home. I talked him at length about the importance of trying to cut back on alcohol intoxication. I informed him that he continues to drink that he will probably end up with liver failure and could possibly from this. Patient acknowledges what I am saying however he does not seem very interested in my warning. Patient encouraged to return to ER anytime if he feels unwell, has chest pain, difficulty breathing, or has any concerns. Patient will be discharged home. Dictation of this chart was performed using voice recognition software; therefore, there may be some unintended grammatical errors. - Vital Signs Vital signs: Temp Pulse Resp BP Pulse Ox 98.1 F 17 138/75 H 100 04/09/18 04:10 04/09/18 04:01 04/09/18 04:00 04/09/18 04:00 - EKG Interpretation by Me Additional EKG results interpreted by me: 04/09/18 00:32 EKG is reviewed and interpreted by me. EKG shows sinus rhythm with a rate of [address] segment elevation or depression. No ischemic T wave inversions. MN interval, QRS duration, QT intervals are within normal range. Discharge - Discharge Clinical Impression: Alcohol intoxication Qualifiers: Complication of substance-induced condition: uncomplicated Qualified Code(s): F10.920 - Alcohol use, unspecified with intoxication, uncomplicated Chest pain Qualifiers: Chest pain type: unspecified Qualified Code(s): R07.9 - Chest pain, unspecified Condition: Good Disposition: HOME, SELF-CARE Additional Instructions: Please gradually cut back on your alcohol intake over several days until you are o longer drinking alcohol. If you continue to drink alcohol you will likely develop liver failure and will eventually . please return to the Er if you have recurrent chest pain, difficulty breathing, or feel unwell.
[2018-04-09 04:17] VITALS: BP 138/75
--- NOTE | 2018-04-09 19:32 | EKG REPORT ---
SEVERITY:- NORMAL ECG - SINUS RHYTHM : Confirmed by: Vanessa Jacobs 09-Apr-2018 19:32:07
== END 2018-04-09 04:17 | disposition home or self-care (01) ==
LOC: ER 00:13
DX: F10.120 Alcohol abuse with intoxication, uncomplicated (principal); R07.9 Chest pain, unspecified
CPT/HCPCS: 93005; 99283; 96360; 36415; 84484; 93010; J7030

== ENCOUNTER 2018-04-10 02:55 | Emergency (ER) | payer SELFPAY ==
--- NOTE | 2018-04-10 03:41 | ER Document Report ---
ED General - General Chief Complaint: Chest Pain Stated Complaint: HEART ISSUE Time Seen by Provider: 04/10/18 03:40 Notes: Patient is 42-year-old male who presents with alcohol intoxication with complaint of chest pain. He is done the several nights in a row. He currently says he does not have any chest pain. This is consistent with his previous visits as each time he comes he tells the police however this spring and had this chest pain but then when he arrived he says his chest pain is gone. Patient is typically too intoxicated to discharge right away. That is the case again denies patient is intoxicated. He drinks alcohol every night. He denies any recent falls or traumas. He has no other complaints at this time. TRAVEL OUTSIDE OF THE [place] IN LAST 30 DAYS: No - Related Data Allergies/Adverse Reactions: No Known Allergies Allergy (Verified 02/26/18 08:55) Past Medical History - Social History Smoking Status: Current Every Day Smoker Frequency of alcohol use: Heavy Drug Abuse: None Family History: Reviewed & Not Pertinent Renal/ Medical History: Denies: Hx Peritoneal Dialysis Review of Systems - Review of Systems Notes: My Normal Review Basic REVIEW OF SYSTEMS: CONSTITUTIONAL : Denies fever, chills, or sweats. Denies recent illness. EENT: Denies eye, ear, throat, or mouth pain or symptoms. Denies nasal or sinus congestion. CARDIOVASCULAR: Chest pain which is now resolved. RESPIRATORY: Denies cough, cold, or chest congestion. Denies shortness of breath, difficulty breathing, or wheezing. GASTROINTESTINAL: Denies abdominal pain. Denies nausea, vomiting, or diarrhea. MUSCULOSKELETAL: Denies neck or back pain or joint pain or swelling. SKIN: Denies rash or skin lesions. NEUROLOGICAL: Denies altered mental status or loss of consciousness. Denies headache. Denies weakness or paralysis or loss of use of either side. Denies problems with gait or speech. Denies sensory or motor loss. PSYCHIATRIC: Denies anxiety or stress or depression. ALL OTHER SYSTEMS REVIEWED AND NEGATIVE. Physical Exam - Vital signs Vitals: Resp Pulse Ox 12 98 04/10/18 03:30 04/10/18 03:30 - Notes Notes: General Appearance: Well nourished, alert, cooperative, no acute distress, no obvious discomfort. As of alcohol. Answers questions appropriately. Some slurring of speech due to alcohol intoxication. Vitals: reviewed, See vital signs table. Head: no swelling or tenderness to the head Eyes: PERRL, EOMI, Conjuctiva clear Mouth: No decreasd moisture Throat: No tonsillar inflammation, No airway obstruction, No lymphadenopathy Neck: Supple, no neck tenderness, No thyromegaly Lungs: No wheezing, No rales, No rhonci, No accessory muscle use, good air exchange bilaterally. Heart: Normal rate, Regular rythm, No murmur, no rub Abdomen: Normal BS, soft, No rigidity, No abdominal tenderness, No guarding, no rebound, Extremities: strength 5/5 in all extremities, good pulses in all extremities, no swelling or tenderness in the extremities, no edema. Skin: warm, dry, appropriate color, no rash Neuro: Some slurred speech due to alcohol intoxication, oriented x 2, normal affect, responds appropriately to questions. Cranial nerves II through XII are intact. Distal sensation intact. Patient moves all extremities without difficulty. Course - Re-evaluation Re-evalutation: 04/10/18 06:11 I reevaluate the patient. He is awake and alert. He is answering questions appropriate. I had him stand and move around. He has normal balance. He has no signs of ataxia. He is clinically sober at this time. I talked to him again at length about to cut back on alcohol intake. I talked to him again about how continued alcohol use will most likely lead to liver failure and possibly . He shows understanding of this but again I am not convinced that he will follow through with my advice. Currently has no other requests at this time and wants to be discharged home. Dictation of this chart was performed using voice recognition software; therefore, there may be some unintended grammatical errors. - Vital Signs Vital signs: Temp Pulse Resp BP Pulse Ox 13 111/67 96 04/10/18 05:01 04/10/18 05:01 04/10/18 05:01 - EKG Interpretation by Me Additional EKG results interpreted by me: 04/10/18 03:40 EKG is reviewed and interpreted by me. EKG shows sinus rhythm with rate of [address] segment elevation or depression. HI interval, QRS duration, QTc intervals are within normal range. Old EKG for comparison is from yesterday. Discharge - Discharge Clinical Impression: Alcohol abuse Condition: Good Disposition: HOME, SELF-CARE Additional Instructions: Please stop drinking alcohol on a daily basis. Continued alcohol abuse will lead to and liver failure. Please return to ER at any time if you want help with alcohol abuse or if you feel that you are going through alcohol withdrawal. Please slowly cut back your alcohol intake over the course of a week until you are no longer drinking alcohol at all. Please return to ER if you have recurrent worsening chest pain, difficulty breathing, or feel unwell. Follow up with a doctor in 2-3 days for reevaluation.
[2018-04-10 06:25] VITALS: BP 124/75
--- NOTE | 2018-04-10 18:00 | EKG REPORT ---
SEVERITY:- NORMAL ECG - SINUS RHYTHM : Confirmed by: Vanessa Jacobs 10-Apr-2018 17:58:53
== END 2018-04-10 06:29 | disposition home or self-care (01) ==
LOC: ER 02:55
DX: R07.9 Chest pain, unspecified (principal); F10.129 Alcohol abuse with intoxication, unspecified; F17.200 Nicotine dependence, unspecified, uncomplicated
CPT/HCPCS: 36415; 84484; 93005; 93010; 99285

== ENCOUNTER 2018-04-10 11:35 | Inpatient (IN) | payer SELFPAY ==
[2018-04-10] MEDS ORDERED: NALOXONE HCL INJ 2 MG/2 ML DISP.SYRIN IV ONE (12:44)
--- NOTE | 2018-04-10 12:45 | ER Document Report ---
ED General - General Chief Complaint: Psych Problem Stated Complaint: POSSIBLE ETOH Time Seen by Provider: 04/10/18 12:38 TRAVEL OUTSIDE OF THE [place] IN LAST 30 DAYS: No - HPI Notes: Patient is a 42-year-old male that presents to the emergency department for chief complaint of altered mental status. [place] [employer] called EMS. [employer] told EMS that patient was seen wandering around the mall for about 45 minutes when he sat down on a bench. When they confronted him he was slurring his speech and having a hard time staying awake. EMS reported he was drinking alcohol. HPI is limited because of patient's current mental status. There was no reported trauma. Patient is not answering questions currently. Past Medical History: Reviewed in chart Past Surgical History: Reviewed in chart Social History: History of alcohol abuse Family History: Reviewed and noncontributory for presenting illness Allergies: Reviewed, see documented allergy list. REVIEW OF SYSTEMS: Unable to obtain because of current mental status PHYSICAL EXAMINATION: Vital signs reviewed, nursing noted reviewed. GENERAL: Intoxicated HEAD: Atraumatic, normocephalic. EYES: Eyes appear normal, extraocular movements intact, sclera anicteric, conjunctiva are normal. ENT: nares patent, oropharynx clear without exudates. Dry mucous membranes. NECK: Normal range of motion, supple without lymphadenopathy LUNGS: Breath sounds clear to auscultation bilaterally and equal. No wheezes rales or rhonchi. HEART: Tachycardic rate and regular rhythm without murmurs ABDOMEN: Soft, nontender, normoactive bowel sounds. No rebound, guarding, or rigidity. No masses appreciated. EXTREMITIES: Nontender, good range of motion, no pitting or edema. NEUROLOGICAL: GCS 11, Moves all extremities spontaneously Motor and sensory grossly intact on exam. PSYCH: Intoxicated SKIN: Warm, Dry, normal turgor, no rashes or lesions noted on exposed skin - Related Data Allergies/Adverse Reactions: No Known Allergies Allergy (Verified 02/26/18 08:55) Past Medical History - Social History Smoking Status: Unknown if Ever Smoked Family History: Reviewed & Not Pertinent Patient has suicidal ideation: No - unable to assess Patient has homicidal ideation: No - unable to assess Renal/ Medical History: Denies: Hx Peritoneal Dialysis Physical Exam - Vital signs Vitals: Temp Pulse Resp BP Pulse Ox 98.3 F 119 H 20 155/82 H 99 04/10/18 11:47 04/10/18 11:47 04/10/18 11:47 04/10/18 11:47 04/10/18 11:47 Course - Re-evaluation Re-evalutation: 04/10/18 12:51 Vitals reviewed. Nursing notes reviewed. Patient is mildly tachycardic with dry mucous membranes. He has a long history of alcohol abuse on chart review. Patient started on IV fluids and given a dose of thiamine. CT brain will be obtained although there is no report of trauma or external signs of injury. He has a GCS of 11 and is not talking to me to state whether or not he did actually drink alcohol today. 04/10/18 13:57 Patient's alcohol level is only 62. He came back with a critically high Tylenol level and was started on N-acetylcysteine. Patient was just reevaluated and continues to have a GCS of 11. He is protecting his airway and following commands. It is difficult to understand anything he is trying to mumble. The intent of his Tylenol overdose and the timing is unknown because of his current mentation. I did discuss his care with poison control. Patient case was discussed with Dr. Bach who is accepted patient for admission to the ICU. Patient is on telemetry monitoring now and hemodynamically stable. Laboratory 04/10/18 04/10/18 12:17 12:17 WBC 7.1 RBC 4.01 L Hgb 12.8 L Hct 37.2 L MCV 93 MCH 32.0 MCHC 34.4 RDW 12.9 Plt Count 199 Seg Neutrophils % 63.1 Lymphocytes % 25.0 Monocytes % 9.8 Eosinophils % 1.0 Basophils % 1.1 Absolute Neutrophils 4.5 Absolute Lymphocytes 1.8 Absolute Monocytes 0.7 Absolute Eosinophils 0.1 Absolute Basophils 0.1 Sodium 145.8 H Potassium 4.3 Chloride 108 H Carbon Dioxide 24 Anion Gap 14 BUN 13 Creatinine 0.71 Est GFR ( Amer) > 60 Est GFR (Non-Af Amer) > 60 Glucose 101 Calcium 9.1 Total Bilirubin 0.7 Direct Bilirubin 0.3 Neonat Total Bilirubin Not Reportable Neonat Direct Bilirubin Not Reportable Neonat Indirect Bili Not Reportable AST 50 ALT 26 Alkaline Phosphatase 77 Total Protein 7.6 Albumin 4.6 Salicylates < 1.0 L Acetaminophen 175 H* Serum Alcohol 62 - Vital Signs Vital signs: Temp Pulse Resp BP Pulse Ox 98.3 F 119 H 19 159/90 H 99 04/10/18 11:47 04/10/18 11:47 04/10/18 14:09 04/10/18 14:09 04/10/18 14:09 - Laboratory Result Diagrams: 04/10/18 12:17 04/10/18 12:17 Laboratory results interpreted by me: 04/10/18 04/10/18 12:17 12:17 RBC 4.01 L Hgb 12.8 L Hct 37.2 L Sodium 145.8 H Chloride 108 H Salicylates < 1.0 L Acetaminophen 175 H* - EKG Interpretation by Me Additional EKG results interpreted by me: 04/10/18 13:15 Interpreted by myself 1312: Sinus tachycardia, rate 109, normal axis, no ectopy, no STEMI Critical Care Note - Critical Care Note Total time excluding time spent on procedures (mins): 35 Comments: Critical care time 35 exclusive from separate billable procedures for a patient requiring complex medical decision making, and high potential for clinical deterioration. Time spent obtaining history from patient or surrogate, discussions with consultants, development of treatment plan with patient or surrogate, evaluation of patient's response to treatment, examination of patient, ordering and performing treatments and interventions, ordering and review of laboratory studies, re-evaluation of patient's condition, ordering and review of radiographic studies and review of old charts Discharge - Discharge Clinical Impression: Hypernatremia Tylenol overdose Qualifiers: Encounter type: initial encounter Injury intent: undetermined intent Qualified Code(s): T39.1X4A - Poisoning by 4-Aminophenol derivatives, undetermined, initial encounter Altered mental status Qualifiers: Altered mental status type: coma Coma depth: Bassam coma 9-12 Coma timing: unspecified coma timing Qualified Code(s): R40.2420 - Bassam coma scale score 9-12, unspecified time Condition: Stable Disposition: ADMITTED INPATIENT Admitting Provider: Hospitalist Unit Admitted: ICU
[2018-04-10] MEDS ORDERED: NORMAL SALINE 1000 ML 1,000 ML IV ONE (12:51)
[2018-04-10] MEDS ORDERED: THIAMINE HCL 100 MG, FOLIC ACID 1 MG in NORMAL SALINE 250 ML IV ONE (12:51)
[2018-04-10 13:09] LABS: ABSOLUTE BASOPHILS # (AUTO) 0.1 10^3/uL (0.0-0.2); ABSOLUTE EOSINOPHILS # (AUTO) 0.1 10^3/uL (0.0-0.6); ABSOLUTE LYMPHOCYTES (AUTO) 1.8 10^3/uL (0.5-4.7); ABSOLUTE MONOCYTES (AUTO) 0.7 10^3/uL (0.1-1.4); ABSOLUTE NEUT (AUTO) 4.5 10^3/uL (1.7-8.2); BASOPHILS % (AUTO) 1.1 % (0-2); HEMATOCRIT 37.2 % (37.9-51.0); HEMOGLOBIN 12.8 g/dL (13.5-17.0); MEAN CORPUSCULAR HGB CONC 34.4 g/dL (32.0-36.0); MEAN CORPUSCULAR VOLUME 93 fl (80-97); MONOCYTES % (AUTO) 9.8 % (3-13); PLATELET COUNT 199 10^3/uL (150-450); RED BLOOD COUNT 4.01 10^6/uL (4.35-5.55); RED CELL DISTRIBUTION WIDTH 12.9 % (11.5-14.0); SEGMENTED NEUTROPHILS % (AUTO) 63.1 % (42-78); TOTAL CELLS COUNTED % (AUTO) 100 %; WHITE BLOOD COUNT 7.1 10^3/uL (4.0-10.5)
[2018-04-10 13:18] LABS: ALANINE AMINOTRANSFERASE 26 U/L (21-72); ALBUMIN 4.6 g/dL (3.5-5.0); ALCOHOL 62 mg/dL (NONE DETECTED); ALKALINE PHOSPHATASE 77 U/L (38-126); ANION GAP 14 (5-19); ASPARTATE AMINO TRANSFERASE 50 U/L (17-59); BILIRUBIN,DIRECT 0.3 mg/dL (0.0-0.4); BILIRUBIN,TOTAL 0.7 mg/dL (0.2-1.3); BLOOD UREA NITROGEN 13 mg/dL (7-20); CALCIUM 9.1 mg/dL (8.4-10.2); CARBON DIOXIDE 24 mmol/L (22-30); CHLORIDE 108 mmol/L (98-107); GLUCOSE 101 mg/dL (75-110); POTASSIUM 4.3 mmol/L (3.6-5.0); SODIUM 145.8 mmol/L (137-145); TOTAL PROTEIN 7.6 g/dL (6.3-8.2)
[2018-04-10 13:21] LABS: SALICYLATE < 1.0 mg/dL (2.0-20.0)
[2018-04-10 13:27] LABS: ACETAMINOPHEN 175 ug/mL (10-30)
[2018-04-10] MEDS ORDERED: ACETYLCYSTEINE INJ 6000 MG/30 ML IV ONE ×3 (13:45→18:45)
--- NOTE | 2018-04-10 14:25 | PSYCHOLOGICAL NOTE ---
Psych Note - Psych Note Date seen by psych provider: 04/10/18 Time seen by psych provider: 13:30 Psych Note: Reason for consult: ETOH Contact Permissions: Behavioral health is unable to evaluate patient at this time due to AMS. Patient is responding to his name and simple commands but unable to speak at this time. Diagnosis: ETOH abuse per patient hx Medication recommendations as per psychiatric provider, Dr. Ang are as follows: No medication recommendations at this time Patient is currently unable to participate in a psychiatric evaluation due to Tylenol overdose as his Tylenol level was 175. Patient was brought in by EMS after having been found passed out [place] a bench in the mall. It was suspected ETOH abuse as patient was inebriated at the mall in February. Chart review shows 2 prior visits to the ED for ETOH between December 2017 and March 2018. Behavioral health will evaluate at a later time. Consulted Dr. Scanlon in the care and treatment of this patient and ED physician.
[2018-04-10] MEDS ORDERED: NORMAL SALINE 1000 ML 2,000 ML IV ONE (14:30)
[2018-04-10 14:37] LABS: APPEARANCE,URINE CLEAR; BILIRUBIN,URINE NEGATIVE (NEGATIVE); COLOR,URINE YELLOW; GLUCOSE, URINE NEGATIVE (NEGATIVE); KETONES,URINE NEGATIVE (NEGATIVE); LEUKOCYTE ESTERASE,URINE NEGATIVE (NEGATIVE); NITRITE,URINE NEGATIVE (NEGATIVE); PROTEIN,URINE NEGATIVE (NEGATIVE); URINE SPECIFIC GRAVITY 1.027; UROBILINOGEN,URINE NEGATIVE mg/dL (<2.0)
[2018-04-10 14:53] LABS: URINE AMPHETAMINES SCREEN NEGATIVE; URINE BARBITURATES SCREEN NEGATIVE; URINE BENZODIAZEPINES SCREEN NEGATIVE; URINE COCAINE SCREEN NEGATIVE; URINE MARIJUANA (THC) SCREEN NEGATIVE; URINE METHADONE SCREEN NEGATIVE; URINE PHENCYCLIDINE SCREEN NEGATIVE
[2018-04-10] MEDS ORDERED: WATER IV ONE ×3 (15:00→20:00)
[2018-04-10] MEDS ORDERED: ACETYLCYSTEINE IV ONE ×3 (15:00→20:00)
[2018-04-10] MEDS ORDERED: DEXTROSE 5% IV ONE ×3 (15:00→20:00)
[2018-04-10 15:08] LABS: INTERNATIONAL RATION (INR) 1.03
[2018-04-10] MEDS ORDERED: ONDANSETRON HCL INJ/PF 4 MG/2 ML SDV IV PRN (15:14)
[2018-04-10 15:26] LABS: ALANINE AMINOTRANSFERASE 30 U/L (21-72); ALBUMIN 4.2 g/dL (3.5-5.0); ALKALINE PHOSPHATASE 69 U/L (38-126); ASPARTATE AMINO TRANSFERASE 48 U/L (17-59); BILIRUBIN,DIRECT 0.2 mg/dL (0.0-0.4); BILIRUBIN,TOTAL 0.7 mg/dL (0.2-1.3)
--- NOTE | 2018-04-10 15:29 | PDOC H&P ---
History of Present Illness Admission Date/PCP: 04/10/18 14:08 History of Present Illness: MARCIA LYNN is a 42 year old black male patient but by EMS for altered mental status. I tried to get history from the patient he just mumbles and he is unintelligible. Brief history obtained from the ER attending note. Per ER attending note,Patient is a 42-year-old male that presents to the emergency department for chief complaint of altered mental status. Patient was found at the mall intoxicated.[employer] called EMS.[employer] told EMS that patient was seen wandering around the mall for about 45 minutes when he sat down on a bench. When they confronted him he was slurring his s peech and having a hard time staying awake. EMS reported he was drinking alcohol. HPI is limited because of patient's current mental status. There was no reported trauma. Patient is not answering questions currently. His blood work shows elevated Tylenol level of 175 but his blood alcohol level is just 62. Further detailed history and review of system is unobtainable. Social History Smoking Status: Unknown if Ever Smoked - Advance Directive Resuscitation Status: Full Code Family History Family History: Reviewed & Not Pertinent Parental Family History Reviewed: Yes Children Family History Reviewed: Yes Sibling(s) Family History Reviewed.: Yes Medication/Allergy Allergies/Adverse Reactions: No Known Allergies Allergy (Verified 02/26/18 08:55) Review of Systems ROS unobtainable: Due to mental status Physical Exam Vital Signs: Temp Pulse Resp BP Pulse Ox 98.3 F 119 H 19 159/90 H 99 04/10/18 11:47 04/10/18 11:47 04/10/18 14:09 04/10/18 14:09 04/10/18 14:09 Intake & Output 04/09/18 04/10/18 04/11/18 06:59 06:59 06:59 Intake Total 1000 Balance 1000 Weight 68.9 kg General appearance: PRESENT: no acute distress Head exam: PRESENT: atraumatic Eye exam: PRESENT: conjunctiva pink Neck exam: ABSENT: carotid bruit, JVD, lymphadenopathy, thyromegaly Respiratory exam: PRESENT: clear to auscultation chino. ABSENT: rales, rhonchi, wheezes Cardiovascular exam: PRESENT: RRR. ABSENT: diastolic murmur, rubs, systolic murmur GI/Abdominal exam: PRESENT: normal bowel sounds, soft. ABSENT: distended, guarding, mass, organolmegaly, rebound, tenderness Neurological exam: PRESENT: alert, awake Results Laboratory Results: 04/10/18 12:17 04/10/18 12:17 04/10/18 04/10/18 04/10/18 12: 12: 14:07 WBC 7.1 RBC 4.01 L Hgb 12.8 L Hct 37.2 L MCV 93 MCH 32.0 MCHC 34.4 RDW 12.9 Plt Count 199 Seg Neutrophils % 63.1 Lymphocytes % 25.0 Monocytes % 9.8 Eosinophils % 1.0 Basophils % 1.1 Absolute Neutrophils 4.5 Absolute Lymphocytes 1.8 Absolute Monocytes 0.7 Absolute Eosinophils 0.1 Absolute Basophils 0.1 Sodium 145.8 H Potassium 4.3 Chloride 108 H Carbon Dioxide 24 Anion Gap 14 BUN 13 Creatinine 0.71 Est GFR ( Amer) > 60 Est GFR (Non-Af Amer) > 60 Glucose 101 Calcium 9.1 Total Bilirubin 0.7 AST 50 ALT 26 Alkaline Phosphatase 77 Total Protein 7.6 Albumin 4.6 Urine Color YELLOW Urine Appearance CLEAR Urine pH 5.0 Ur Specific [place] 1.027 Urine Protein NEGATIVE Urine Glucose (UA) NEGATIVE Urine Ketones NEGATIVE Urine Blood NEGATIVE Urine Nitrite NEGATIVE Ur Leukocyte Esterase NEGATIVE Urine WBC (Auto) 1 Urine RBC (Auto) 0 Assessment & Plan - Diagnosis (1) Acute encephalopathy, Tylenol overdose Is this a current diagnosis for this admission?: Yes Plan: Patient admitted to ICU for close monitoring. He has been given acetylcysteine and his goal cautiously hydrated. He is on alcohol withdrawal protocol since patient has history of alcohol abuse.
[2018-04-10 15:33] LABS: ACETAMINOPHEN 164 ug/mL (10-30)
[2018-04-10] MEDS: LORAZEPAM INJ 2 MG/1 ML VIAL IV PRN ×2 (15:40→21:00)
--- NOTE | 2018-04-10 16:20 | RADIOLOGY REPORT (SQ) ---
EXAM DESCRIPTION: CT HEAD WITHOUT COMPLETED DATE/TIME: 04/10/2018 4:07 pm REASON FOR STUDY: mental status change COMPARISON: CT from [facility] dated 01/06/2017. TECHNIQUE: Axial images acquired through the brain without intravenous contrast. Images reviewed wi th bone, brain and subdural windows. Images stored on PACS. All CT scanners at this facility use dose modulation, iterative reconstruction, and/or weight based d osing when appropriate to reduce radiation dose to as low as reasonably achievable (ALARA). [facility]: Dose Right [facility]: CareDose [facility]: Dose Right [facility]: Teradose 4D [facility]: SuperCloud RADIATION DOSE: CT Rad equipment meets quality standard of care and radiation dose reduction techniq ues were employed. CTDIvol: 53.2 mGy. DLP: 2354 mGy-cm. mGy. LIMITATIONS: Significant motion artifact. FINDINGS: VENTRICLES: Normal size and contour. CEREBRUM: No masses. No hemorrhage. No midline shift. No evidence for acute infarction. Normal gra y/white matter differentiation. No areas of low density in the white matter. CEREBELLUM: No masses. No hemorrhage. No alteration of density. No evidence for acute infarction. EXTRAAXIAL SPACES: No fluid collections. No masses. ORBITS AND GLOBE: No intra- or extraconal masses. Normal contour of globe without masses. CALVARIUM: No fracture. PARANASAL SINUSES: Mucous membrane thickening. SOFT TISSUES: No mass or hematoma. OTHER: No other significant finding. IMPRESSION: STUDY LIMITED BY MOTION ARTIFACT. NO GROSS ABNORMALITIES. EVIDENCE OF ACUTE STROKE: NO. COMMENT: Quality ID # [id number]: Final reports with documentation of one or more dose reduction techniques (e.g., Automated exposure control, adjustment of the mA and/or kV according to patient size, use of iterative reconstruction technique) TECHNICAL DOCUMENTATION: JOB ID: [id number] [employer]- All Rights Reserved Reading location - IP/workstation name: [email or web address]
[2018-04-10] MEDS: NORMAL SALINE 1000 ML 1,000 ML IV PRN ×2 (16:40→21:07)
[2018-04-10] MEDS: ENOXAPARIN SODIUM INJ 40 MG/0.4 ML DISP.SYRIN SUBCUT SCH (17:22)
[2018-04-10] MEDS: LANSOPRAZOLE 30 MG TAB.RAP.DR PO SCH (17:52)
--- NOTE | 2018-04-10 18:00 | EKG REPORT ---
SEVERITY:- BORDERLINE ECG - SINUS TACHYCARDIA PROBABLE LEFT ATRIAL ABNORMALITY : Confirmed by: Vanessa Jacobs 10-Apr-2018 17:58:48
[2018-04-10] MEDS ORDERED: LORAZEPAM INJ 2 MG/1 ML VIAL ONE ×2 (18:59→23:54)
[2018-04-11] MEDS ORDERED: LORAZEPAM INJ 2 MG/1 ML VIAL IV ONE (00:15)
[2018-04-11] MEDS: NORMAL SALINE 1000 ML 1,000 ML IV PRN ×5 (00:35→22:22)
[2018-04-11 04:06] LABS: ABSOLUTE EOSINOPHILS # (AUTO) 0.2 10^3/uL (0.0-0.6); ABSOLUTE LYMPHOCYTES (AUTO) 2.2 10^3/uL (0.5-4.7); ABSOLUTE MONOCYTES (AUTO) 0.5 10^3/uL (0.1-1.4); ABSOLUTE NEUT (AUTO) 5.6 10^3/uL (1.7-8.2); BASOPHILS % (AUTO) 0.5 % (0-2); EOSINOPHILS % (AUTO) 2.3 % (0-6); HEMATOCRIT 36.8 % (37.9-51.0); HEMOGLOBIN 12.9 g/dL (13.5-17.0); LYMPHOCYTES % (AUTO) 26.4 % (13-45); MEAN CORPUSCULAR HEMOGLOBIN 32.4 pg (27.0-33.4); MEAN CORPUSCULAR HGB CONC 35.1 g/dL (32.0-36.0); MEAN CORPUSCULAR VOLUME 92 fl (80-97); MONOCYTES % (AUTO) 5.6 % (3-13); PLATELET COUNT 169 10^3/uL (150-450); RED BLOOD COUNT 3.99 10^6/uL (4.35-5.55); RED CELL DISTRIBUTION WIDTH 12.8 % (11.5-14.0); SEGMENTED NEUTROPHILS % (AUTO) 65.2 % (42-78); TOTAL CELLS COUNTED % (AUTO) 100 %; WHITE BLOOD COUNT 8.5 10^3/uL (4.0-10.5)
[2018-04-11 04:24] LABS: ALANINE AMINOTRANSFERASE 20 U/L (21-72); ALBUMIN 3.6 g/dL (3.5-5.0); ALKALINE PHOSPHATASE 57 U/L (38-126); ANION GAP 7 (5-19); ASPARTATE AMINO TRANSFERASE 41 U/L (17-59); BILIRUBIN,DIRECT 0.3 mg/dL (0.0-0.4); BILIRUBIN,TOTAL 1.5 mg/dL (0.2-1.3); BLOOD UREA NITROGEN 4 mg/dL (7-20); CALCIUM 8.1 mg/dL (8.4-10.2); CARBON DIOXIDE 24 mmol/L (22-30); CHLORIDE 112 mmol/L (98-107); GLUCOSE 80 mg/dL (75-110); POTASSIUM 3.6 mmol/L (3.6-5.0); SODIUM 142.5 mmol/L (137-145); TOTAL PROTEIN 6.5 g/dL (6.3-8.2)
[2018-04-11] MEDS: LANSOPRAZOLE 30 MG TAB.RAP.DR PO SCH ×2 (05:48→18:06)
[2018-04-11] MEDS: ENOXAPARIN SODIUM INJ 40 MG/0.4 ML DISP.SYRIN SUBCUT SCH (09:00)
[2018-04-11] MEDS ORDERED: HALOPERIDOL LACTATE INJ 5 MG/1 ML VIAL ONE (10:13)
[2018-04-11] MEDS ORDERED: HALOPERIDOL LACTATE INJ 5 MG/1 ML VIAL IV PRN (10:19)
[2018-04-11] MEDS ORDERED: HALOPERIDOL LACTATE INJ 5 MG/1 ML VIAL IV ONE (10:30)
--- NOTE | 2018-04-11 10:39 | PSYCHOLOGICAL NOTE ---
Psych Note - Psych Note Date seen by psych provider: 04/11/18 Time seen by psych provider: 08:55 Psych Note: Reason for consult: overdose Contact Permissions: none given Patient presented to [facility] AMS, it was unclear at the time why; however, he has been seen multiple times while being under the influence of alcohol. Patient was seen in [facility] ICU. Patient discloses he knows he is currently in [facility] because of alcohol. He reports he has no memory of taking any Tylenol. Patient asked when he can leave. He reports drinking since 1999 and denies wanting any assistance with detox. Patient is alert and orientated to person, place, time and circumstance. Pat ient currently denies suicidal and homicidal ideation. Mood and affect is flat. Delusions are absent and behaviour is congruent with an intact reality based presentation ie organized and linear thought processes. Patient presents very guarded. Eye contact is very poor. Intellectual abilities appear to be within normal range. Attention and Concentration is poor. Insight, judgment and impulse control is poor. No medication recommendations at this time Diagnosis: 291.9 (F10.99) Unspecified Alcohol disorder per history Impression/Plan: Patient is recommended for IVC for overnight mental health observation. Patient arrived to [facility] ED with Tylenol overdose as his Tylenol level was 175. Chart review shows 2 prior visits to the ED for ETOH between December 2017 and March 2018. Patient is currently denying wanting to hurt himself; however, will not make eye contact and very guarded. Patient states he drank NyQuil because he has a "sore throat and stuffed up nose." At this time it is unclear if the patient was drinking to get drunk or to harm himself. Patient will be re-evaluated. Dr. Scanlon was consulted on the care and management of this patient; attending physician is in agreement with recommendations and disposition.
[2018-04-11 14:37] LABS: ALANINE AMINOTRANSFERASE 17 U/L (21-72); ALBUMIN 3.6 g/dL (3.5-5.0); ALKALINE PHOSPHATASE 61 U/L (38-126); ASPARTATE AMINO TRANSFERASE 37 U/L (17-59); BILIRUBIN,DIRECT 0.2 mg/dL (0.0-0.4); BILIRUBIN,TOTAL 1.8 mg/dL (0.2-1.3); TOTAL PROTEIN 6.4 g/dL (6.3-8.2)
[2018-04-11 14:41] LABS: ACETAMINOPHEN < 10 ug/mL (10-30)
--- NOTE | 2018-04-11 17:55 | PDOC PROGRESS REPORT ---
Subjective Progress Note for:: 04/11/18 Subjective:: I seen patient resting in bed. He is more awake and alert and oriented to place.His blood works are unremarkable.He is IVCed by psyche. Reason For Visit: ACUTE ENCEPHALOPATHY DUE TO TYLENOL OVERDOSE Physical Exam Vital Signs: Temp Pulse Resp BP Pulse Ox 97.5 F 78 14 138/87 H 100 04/11/18 16:00 04/11/18 16:00 04/11/18 16:00 04/11/18 16:00 04/11/18 16:00 Intake & Output 04/10/18 04/11/18 04/12/18 06:59 06:59 06:59 Intake Total 6343.2 3003 Output Total 5550 4370 Balance 793.2 -1367 Weight 77.2 kg General appearance: PRESENT: no acute distress Eye exam: PRESENT: conjunctiva pink Mouth exam: PRESENT: dry mucosa Neck exam: ABSENT: carotid bruit, JVD, lymphadenopathy, thyromegaly Respiratory exam: PRESENT: clear to auscultation chino. ABSENT: rales, rhonchi, wheezes Cardiovascular exam: PRESENT: RRR. ABSENT: diastolic murmur, rubs, systolic murmur GI/Abdominal exam: PRESENT: normal bowel sounds, soft. ABSENT: distended, guarding, mass, organolmegaly, rebound, tenderness Neurological exam: PRESENT: alert, awake Results Laboratory Results: 04/11/18 03:59 04/11/18 03:59 04/11/18 04/11/18 04/11/18 03:59 03:59 14:02 WBC 8.5 RBC 3.99 L Hgb 12.9 L Hct 36.8 L MCV 92 MCH 32.4 MCHC 35.1 RDW 12.8 Plt Count 169 Seg Neutrophils % 65.2 Lymphocytes % 26.4 Monocytes % 5.6 Eosinophils % 2.3 Basophils % 0.5 Absolute Neutrophils 5.6 Absolute Lymphocytes 2.2 Absolute Monocytes 0.5 Absolute Eosinophils 0.2 Absolute Basophils 0.0 Sodium 142.5 Potassium 3.6 Chloride 112 H Carbon Dioxide 24 Anion Gap 7 BUN 4 L Creatinine 0.47 L Est GFR ( Amer) > 60 Est GFR (Non-Af Amer) > 60 Glucose 80 Calcium 8.1 L Magnesium 2.0 Total Bilirubin 1.5 H 1.8 H AST 41 37 ALT 20 L 17 L Alkaline Phosphatase 57 61 Total Protein 6.5 6.4 Albumin 3.6 3.6 Impressions: Head CT 04/10/18 12:44 IMPRESSION: STUDY LIMITED BY MOTION ARTIFACT. NO GROSS ABNORMALITIES. EVIDENCE OF ACUTE STROKE: NO. Assessment & Plan - Diagnosis (1) Acute encephalopathy, Tylenol overdose Is this a current diagnosis for this admission?: Yes Plan: There some improvement but still confused and reportedly hr verbally threatening the nurses
[2018-04-12] MEDS: LANSOPRAZOLE 30 MG TAB.RAP.DR PO SCH ×3 (06:16→19:42)
--- NOTE | 2018-04-12 09:46 | PDOC PROGRESS REPORT ---
Subjective Progress Note for:: 04/12/18 Subjective:: saw patient this morning in ICU- he wants to go home. he has no new complaints at this time. denies chest pain, sob, n/v, abdominal pain or dizziness. social situation - he has nowhere to live- he lives [address]- states he lives in [place] - has no family. Reason For Visit: ACUTE ENCEPHALOPATHY DUE TO TYLENOL OVERDOSE Physical Exam Vital Signs: Temp Pulse Resp BP Pulse Ox 98.2 F 72 22 H 137/92 H 98 04/12/18 08:00 04/12/18 08:00 04/12/18 08:00 04/12/18 08:00 04/12/18 08:00 Intake & Output 04/11/18 04/12/18 04/13/18 06:59 06:59 06:59 Intake Total 6343.2 5003 Output Total 5550 7095 400 Balance 793.2 -2092 -400 Weight 170 lb 3.15 oz 170 lb 6.677 oz General appearance: PRESENT: no acute distress Head exam: PRESENT: atraumatic, normocephalic Eye exam: PRESENT: EOMI, PERRLA. ABSENT: conjunctival injection, scleral icterus Ear exam: PRESENT: normal external ear exam Mouth exam: PRESENT: tongue midline Neck exam: ABSENT: tracheal deviation Respiratory exam: PRESENT: clear to auscultation chino, symmetrical Cardiovascular exam: PRESENT: +S1, +S2 Pulses: PRESENT: +2 pedal pulses bilateral GI/Abdominal exam: PRESENT: normal bowel sounds, soft. ABSENT: tenderness Extremities exam: ABSENT: joint swelling, pedal edema Neurological exam: PRESENT: alert, awake, oriented to person, oriented to place, oriented to time, oriented to situation, CN II-XII grossly intact Results Laboratory Results: 04/11/18 03:59 04/11/18 03:59 04/11/18 14:02 Total Bilirubin 1.8 H AST 37 ALT 17 L Alkaline Phosphatase 61 Total Protein 6.4 Albumin 3.6 Impressions: Head CT 04/10/18 12:44 IMPRESSION: STUDY LIMITED BY MOTION ARTIFACT. NO GROSS ABNORMALITIES. EVIDENCE OF ACUTE STROKE: NO. Assessment & Plan - Diagnosis (1) Acute encephalopathy, Tylenol overdose Is this a current diagnosis for this admission?: Yes (2) Alcohol intoxication Qualifiers: Complication of substance-induced condition: uncomplicated Qualified Code(s): F10.920 - Alcohol use, unspecified with intoxication, uncomplicated Is this a current diagnosis for this admission?: Yes (3) Homelessness Is this a current diagnosis for this admission?: Yes (4) Hyperbilirubinemia Is this a current diagnosis for this admission?: Yes - Time Time Spent with patient: 35 or more minutes - Plan Summary Plan Summary: AMS- resolved, likely 2/2 alcohol and tylenol OD. Tylenol level as resolved. he's AAOX4. PSYCH is consulted and he's IVC'd for now. not on restraints. he's requesting discharge but i have asked him to stay another 24 hours at least hyperbili- likely related to alcohol abuse- will get RUQ U/S to assess further Alcohol abuse- so signs of withdrawl- doing well- spoke to him about cessation and quitting. he didn't reply back to me. he's on Ativan PRN. will not start valium now as per nursing his haldol dose x1 made him very sleepy yesterday. will monitor for now- will consider valium taper if needed. will start on folic acid, thiamine, and MVI. will check Tobacco abuse- counseled on cessation and once again he didn't reply about quitting. offered him patch but he declined for now Homeless- will consult discharge planners
[2018-04-12] MEDS ORDERED: THIAMINE HCL 100 MG TABLET PO SCH (10:00)
[2018-04-12] MEDS ORDERED: FOLIC ACID 1 MG TABLET PO SCH (10:00)
[2018-04-12] MEDS ORDERED: THIAMINE HCL 100 MG in NORMAL SALINE 50 ML IV SCH (10:00)
[2018-04-12] MEDS: ENOXAPARIN SODIUM INJ 40 MG/0.4 ML DISP.SYRIN SUBCUT SCH (11:01)
[2018-04-12] MEDS: LORAZEPAM INJ 2 MG/1 ML VIAL IV PRN ×2 (14:13→19:38)
[2018-04-12 15:14] LABS: ALANINE AMINOTRANSFERASE 20 U/L (21-72); ALBUMIN 3.9 g/dL (3.5-5.0); ALKALINE PHOSPHATASE 71 U/L (38-126); ASPARTATE AMINO TRANSFERASE 34 U/L (17-59); BILIRUBIN,DIRECT 0.1 mg/dL (0.0-0.4); BILIRUBIN,TOTAL 1.4 mg/dL (0.2-1.3); TOTAL PROTEIN 6.4 g/dL (6.3-8.2)
[2018-04-12 15:15] LABS: ACETAMINOPHEN < 10 ug/mL (10-30)
[2018-04-12] MEDS: DIAZEPAM 5 MG TABLET PO SCH ×2 (18:10→22:00)
[2018-04-12] MEDS: MULTIVITAMIN TABLET PO SCH ×2 (18:11→19:42)
--- NOTE | 2018-04-12 18:22 | RADIOLOGY REPORT (SQ) ---
EXAM DESCRIPTION: U/S ABDOMEN LIMITED W/O DOP COMPLETED DATE/TIME: 04/12/2018 6:01 pm REASON FOR STUDY: elevated carlos eduardo COMPARISON: None. TECHNIQUE: Dynamic and static grayscale images acquired of the abdomen and recorded on PACS. Additio nal selected color Doppler and spectral images recorded. LIMITATIONS: None. FINDINGS: PANCREAS: No masses. Visualized pancreatic duct normal caliber. LIVER: No masses. Echotexture normal. LIVER VASCULATURE: Normal directional flow of the main portal vein and hepatic veins. GALLBLADDER: No stones. Mild diffuse gallbladder wall thickening. No pericholecystic fluid. ULTRASOUND-DETECTED KIRKPATRICK'S SIGN: Negative. INTRAHEPATIC DUCTS AND COMMON DUCT: CBD and intrahepatic ducts normal caliber. No filling defects. INFERIOR VENA CAVA: Normal flow. AORTA: No aneurysm. RIGHT KIDNEY: Normal size. Normal echogenicity. No solid or suspicious masses. No hydronephrosis. No calcifications. PERITONEAL AND RIGHT PLEURAL SPACE: No ascites or effusions. OTHER: No other significant findings. IMPRESSION: MILD GALLBLADDER WALL THICKENING. NONSPECIFIC. COULD BE ARTIFACT DUE TO PARTIAL CONTRA CTION. NO OTHER SIGNIFICANT FINDINGS. TECHNICAL DOCUMENTATION: JOB ID: [id number] [email or web address]- All Rights Reserved Reading location - IP/workstation name: [email or web address]
[2018-04-13 04:03] LABS: ABSOLUTE EOSINOPHILS # (AUTO) 0.4 10^3/uL (0.0-0.6); ABSOLUTE LYMPHOCYTES (AUTO) 1.8 10^3/uL (0.5-4.7); ABSOLUTE MONOCYTES (AUTO) 0.6 10^3/uL (0.1-1.4); ABSOLUTE NEUT (AUTO) 5.1 10^3/uL (1.7-8.2); BASOPHILS % (AUTO) 0.6 % (0-2); EOSINOPHILS % (AUTO) 4.8 % (0-6); HEMOGLOBIN 11.9 g/dL (13.5-17.0); LYMPHOCYTES % (AUTO) 22.9 % (13-45); MEAN CORPUSCULAR HEMOGLOBIN 32.8 pg (27.0-33.4); MEAN CORPUSCULAR HGB CONC 35.9 g/dL (32.0-36.0); MEAN CORPUSCULAR VOLUME 91 fl (80-97); MONOCYTES % (AUTO) 7.8 % (3-13); PLATELET COUNT 170 10^3/uL (150-450); RED BLOOD COUNT 3.61 10^6/uL (4.35-5.55); RED CELL DISTRIBUTION WIDTH 12.6 % (11.5-14.0); SEGMENTED NEUTROPHILS % (AUTO) 63.9 % (42-78); TOTAL CELLS COUNTED % (AUTO) 100 %; WHITE BLOOD COUNT 7.9 10^3/uL (4.0-10.5)
[2018-04-13 04:19] LABS: ALANINE AMINOTRANSFERASE 27 U/L (21-72); ALBUMIN 3.8 g/dL (3.5-5.0); ALKALINE PHOSPHATASE 88 U/L (38-126); ASPARTATE AMINO TRANSFERASE 32 U/L (17-59); BILIRUBIN,DIRECT 0.1 mg/dL (0.0-0.4); BLOOD UREA NITROGEN 9 mg/dL (7-20); CALCIUM 8.9 mg/dL (8.4-10.2); CARBON DIOXIDE 25 mmol/L (22-30); CHLORIDE 107 mmol/L (98-107); GLUCOSE 136 mg/dL (75-110); TOTAL PROTEIN 6.5 g/dL (6.3-8.2)
[2018-04-13 04:20] LABS: POTASSIUM 3.6 mmol/L (3.6-5.0)
[2018-04-13 04:21] LABS: ANION GAP 7 (5-19); SODIUM 138.9 mmol/L (137-145)
[2018-04-13] MEDS: DIAZEPAM 5 MG TABLET PO SCH (05:40)
[2018-04-13] MEDS: LANSOPRAZOLE 30 MG TAB.RAP.DR PO SCH (05:41)
[2018-04-13 08:18] VITALS: BP 130/76
--- NOTE | 2018-04-13 10:08 | PDOC PROGRESS REPORT ---
Subjective Progress Note for:: 04/13/18 Subjective:: spoke with patient early this morning. he wants to go home. i told him he's not ready for discharge. he doesnt have a place to stay or no PCP to follow up. states he's homeless. i told him that he should wait to talk to our estate planner and Psych for further evaluation of his alcohol abuse history. i told him our estate planner can set him up with group home when ready. states he will await to see [place] environmental restoration planner. he's very anxious and wants to leave- he wont tell me why when i asked him what he has to do after leaving. otherwise he denies chest pain, SOB, abdominal pain, n/v or dizziness Reason For Visit: ACUTE ENCEPHALOPATHY DUE TO TYLENOL OVERDOSE Physical Exam Vital Signs: Temp Pulse Resp BP Pulse Ox 98.0 F 64 16 130/76 H 100 04/13/18 09:41 04/13/18 09:41 04/13/18 09:41 04/13/18 09:41 04/13/18 09:41 Intake & Output 04/12/18 04/13/18 04/14/18 06:59 06:59 06:59 Intake Total 5003 1000 Output Total 7095 1400 Balance -2092 -400 Weight 170 lb 6.677 oz 154 lb 15.759 oz General appearance: PRESENT: no acute distress Head exam: PRESENT: atraumatic, normocephalic Eye exam: PRESENT: EOMI, PERRLA. ABSENT: scleral icterus Ear exam: PRESENT: normal external ear exam Mouth exam: PRESENT: moist, tongue midline Neck exam: ABSENT: tracheal deviation Respiratory exam: PRESENT: clear to auscultation chino, symmetrical Cardiovascular exam: PRESENT: +S1, +S2 GI/Abdominal exam: PRESENT: normal bowel sounds, soft. ABSENT: tenderness Extremities exam: ABSENT: pedal edema Neurological exam: PRESENT: alert, awake, oriented to person, oriented to place, oriented to time, oriented to situation, reflexes normal, CN II-XII grossly intact Skin exam: PRESENT: dry, warm Results Laboratory Results: 04/13/18 03:50 04/13/18 03:50 04/12/18 04/13/18 04/13/18 14:50 03:50 03:50 WBC 7.9 RBC 3.61 L Hgb 11.9 L Hct 33.0 L MCV 91 MCH 32.8 MCHC 35.9 RDW 12.6 Plt Count 170 Seg Neutrophils % 63.9 Lymphocytes % 22.9 Monocytes % 7.8 Eosinophils % 4.8 Basophils % 0.6 Absolute Neutrophils 5.1 Absolute Lymphocytes 1.8 Absolute Monocytes 0.6 Absolute Eosinophils 0.4 Absolute Basophils 0.0 Sodium 138.9 Potassium 3.6 Chloride 107 Carbon Dioxide 25 Anion Gap 7 BUN 9 Creatinine 0.50 L Est GFR ( Amer) > 60 Est GFR (Non-Af Amer) > 60 Glucose 136 H Calcium 8.9 Magnesium 1.9 Total Bilirubin 1.4 H 1.0 AST 34 32 ALT 20 L 27 Alkaline Phosphatase 71 88 Total Protein 6.4 6.5 Albumin 3.9 3.8 Vitamin B12 483.0 Impressions: Head CT 04/10/18 12:44 IMPRESSION: STUDY LIMITED BY MOTION ARTIFACT. NO GROSS ABNORMALITIES. EVIDENCE OF ACUTE STROKE: NO. Abdomen Ultrasound 04/12/18 00:00 IMPRESSION: MILD GALLBLADDER WALL THICKENING. NONSPECIFIC. COULD BE ARTIFACT DUE TO PARTIAL CONTRACTION. NO OTHER SIGNIFICANT FINDINGS. Assessment & Plan - Diagnosis (1) Acute encephalopathy, Tylenol overdose Is this a current diagnosis for this admission?: Yes (2) Alcohol intoxication Qualifiers: Complication of substance-induced condition: uncomplicated Qualified Code(s): F10.920 - Alcohol use, unspecified with intoxication, uncomplicated Is this a current diagnosis for this admission?: Yes (3) Homelessness Is this a current diagnosis for this admission?: Yes (4) Hyperbilirubinemia Is this a current diagnosis for this admission?: Yes - Plan Summary Plan Summary: AMS- resolved, likely 2/2 alcohol and tylenol OD. Tylenol level as resolved. he's AAOX4. PSYCH is consulted and hasnt seen him yet today. he's not longer IVC'd as order had run out. i convinced him to stay yesterday but today he's asking for discharge. not on restraints. i have asked him to stay until seen by psych- he's agreed but very anxious to leave hyperbili- likely related to alcohol abuse- will get RUQ U/S done and shows some thickening of GB but likely insignificant. his hyperbili has resolved. likely all 2/2 alcohol Alcohol abuse- yesterday he became very anxious- spoke with nursing and started on valium 5mg TID- likely having some withdrawl from alcohol. i have asked him to stay- he has no money or insurance so he's safer in the hospital. he's on Ativan PRN. will monitor for now-on valium now will start on folic acid, thiamine, and MVI. checked B12 and its WNL Tobacco abuse- counseled on cessation and once again he didn't reply about quitting. offered him patch but he declined for now Homeless- consulted d/c environmental restoration planner- she's trying to help him find a place to go when ready for discharge.
--- NOTE | 2018-04-13 10:10 | Progress Note ---
Provider Note Provider Note: called by nursing that patient is signing AMA papers. d/c planner intern spoke to him also. he's no longer IVC'd and unfortunately we can't stop him. i have asked nursing to hold him till i get to ICU but he doesn't want to wait and wants to go immediately. i have asked nursing to advise him to stay - he may go into D T's from withdrawl and even . per nursing he's not staying and leaving now- he's insistent on it.
--- NOTE | 2018-04-13 10:19 | PSYCHOLOGICAL NOTE ---
Psych Note - Psych Note Date seen by psych provider: 04/13/18 Psych Note: Patient was evaluated by Dr. Scanlon and cleared from acute psychiatric services previous evening. Patient's IVC petition last night at midnight. Patient indicates he is not interested in any follow up with detox or and substance abuse treatment. Patient states he plans to continue drinking and using speed despite awareness of his medical conditions. Patient is again cleared from acute psychiatric services and is no longer under IVC status.
== END 2018-04-13 10:10 | disposition left against medical advice (07) | DRG 917 ==
LOC: ER 11:35 → EH 14:08 → ICU 16:12
PROVIDERS: ADMIT Internal Medicine; ATTEND Internal Medicine
DX: T39.1X1A Poisoning by 4-Aminophenol derivatives, accidental (unintentional), initial encounter (principal); G92 Toxic encephalopathy; E87.0 Hyperosmolality and hypernatremia; E80.6 Other disorders of bilirubin metabolism; F10.129 Alcohol abuse with intoxication, unspecified; R40.2420 Glasgow coma scale score 9-12, unspecified time; Y90.3 Blood alcohol level of 60-79 mg/100 ml; Y92.89 Other specified places as the place of occurrence of the external cause; Z59.0 Homelessness
CPT/HCPCS: 36415; 70450; 76705; 80053; 80076; 80307; 81001; 82607; 83735; 85025; 85610; 93005; 93010; 96361; 96374; 99291; J0132; J1630; J2060; J2310; J3411; J3490; J7030; J7050; J7060

== ENCOUNTER 2018-04-15 18:56 | Emergency (ER) | payer SELFPAY ==
[2018-04-15 20:00] LABS: ABSOLUTE BASOPHILS # (AUTO) 0.1 10^3/uL (0.0-0.2); ABSOLUTE EOSINOPHILS # (AUTO) 0.4 10^3/uL (0.0-0.6); ABSOLUTE LYMPHOCYTES (AUTO) 3.7 10^3/uL (0.5-4.7); ABSOLUTE NEUT (AUTO) 5.7 10^3/uL (1.7-8.2); BASOPHILS % (AUTO) 0.8 % (0-2); EOSINOPHILS % (AUTO) 3.3 % (0-6); HEMATOCRIT 33.9 % (37.9-51.0); HEMOGLOBIN 11.9 g/dL (13.5-17.0); LYMPHOCYTES % (AUTO) 34.1 % (13-45); MEAN CORPUSCULAR HEMOGLOBIN 32.8 pg (27.0-33.4); MEAN CORPUSCULAR VOLUME 94 fl (80-97); MONOCYTES % (AUTO) 8.9 % (3-13); PLATELET COUNT 221 10^3/uL (150-450); RED BLOOD COUNT 3.62 10^6/uL (4.35-5.55); RED CELL DISTRIBUTION WIDTH 13.2 % (11.5-14.0); SEGMENTED NEUTROPHILS % (AUTO) 52.9 % (42-78); TOTAL CELLS COUNTED % (AUTO) 100 %; WHITE BLOOD COUNT 10.7 10^3/uL (4.0-10.5)
[2018-04-15 20:12] LABS: ALANINE AMINOTRANSFERASE 26 U/L (21-72); ALBUMIN 4.6 g/dL (3.5-5.0); ALKALINE PHOSPHATASE 104 U/L (38-126); ANION GAP 12 (5-19); ASPARTATE AMINO TRANSFERASE 57 U/L (17-59); BILIRUBIN,DIRECT 0.3 mg/dL (0.0-0.4); BILIRUBIN,TOTAL 0.4 mg/dL (0.2-1.3); BLOOD UREA NITROGEN 12 mg/dL (7-20); CALCIUM 9.1 mg/dL (8.4-10.2); CARBON DIOXIDE 26 mmol/L (22-30); CHLORIDE 110 mmol/L (98-107); GLUCOSE 99 mg/dL (75-110); POTASSIUM 4.1 mmol/L (3.6-5.0); SODIUM 147.8 mmol/L (137-145); TOTAL PROTEIN 7.5 g/dL (6.3-8.2)
[2018-04-15 20:14] LABS: ACETAMINOPHEN < 10 ug/mL (10-30); SALICYLATE < 1.0 mg/dL (2.0-20.0)
[2018-04-15 20:45] LABS: ALCOHOL 387 mg/dL (NONE DETECTED)
--- NOTE | 2018-04-15 21:08 | RADIOLOGY REPORT (SQ) ---
EXAM DESCRIPTION: CT HEAD WITHOUT IV CONTRAST COMPLETED DATE/TME: 04/15/2018 19:52 CLINICAL HISTORY: 42 years, Male, trauma a COMPARISON: 04/10/2018 CT brain TECHNIQUE: 82 Images stored on PACS. All CT scanners at this facility use dose modulation, iterative reconstruction, and/or weight based dosing when appropriate to reduce radiation dose to as low as reasonably achievable (ALARA). [facility]: Dose Right [facility]: CareDose [facility]: Dose Right [facility]: Teradose 4D [facility]: [employer] LIMITATIONS: None. FINDINGS: The globes are intact. Extensive mucosal thickening of the maxillary sinuses and ethmoid air cells. No displaced or depressed skull fracture. No intra or extra-axial hemorrhage. CT is limited for evaluation of acute infarct. No CT evidence for large or territorial acute infarct. No mass or midline shift. IMPRESSION: Maxillary and ethmoid sinusitis. Negative for acute intracranial abnormality TECHNICAL DOCUMENTATION: Quality ID # 436: Final reports with documentation of one or more dose reduction techniques (e.g., Automated exposure control, adjustment of the mA and/or kV according to patient size, use of iterative reconstruction technique) copyright 2010 [employer]- All Rights Reserved
--- NOTE | 2018-04-15 21:20 | RADIOLOGY REPORT (SQ) ---
EXAM DESCRIPTION: CT CERVICAL SPINE WITHOUT IV CONTRAST COMPLETED DATE/TME: 04/15/2018 19:52 CLINICAL HISTORY: 42 years, Male, trauma a COMPARISON: None. TECHNIQUE: 251 Images stored on PACS. All CT scanners at this facility use dose modulation, iterative reconstruction, and/or weight based dosing when appropriate to reduce radiation dose to as low as reasonably achievable (ALARA). [facility]: Dose Right [facility]: CareDose [facility]: Dose Right [facility]: Teradose 4D [facility]: Right Hemisp[place] LIMITATIONS: None. FINDINGS: Evaluation of spinal canal contents limited due to CT technique. However, vertebral body height and alignment is preserved. Straightening of the normal cervical lordosis which may reflect muscle spasm/strain. Disc space narrowing with osteophytic spurring and facet arthropathy throughout the cervical spine. Findings are most pronounced at the C6-7 level. Limited evaluation of extraspinal anatomic structures is unremarkable. The atlantoaxial space is preserved. The lateral masses are not displaced. IMPRESSION: Straightening of the normal cervical lordosis which may reflect muscle spasm/strain. Multilevel degenerative change. Remainder is unremarkable TECHNICAL DOCUMENTATION: Quality ID # 436: Final reports with documentation of one or more dose reduction techniques (e.g., Automated exposure control, adjustment of the mA and/or kV according to patient size, use of iterative reconstruction technique) copyright 2011 [employer] All Rights Reserved
--- NOTE | 2018-04-16 00:59 | ER Document Report ---
ED General - General Chief Complaint: Chest Pain Stated Complaint: CHEST PAIN Time Seen by Provider: 04/15/18 19:15 Mode of Arrival: Medic Notes: RN notes: 1900 - Pt presented to the ED via EMS with complaints of chest pain for several weeks. Per EMS, pt has been transported to the hospital 4 times this week for the same issues. EMS reports pt c/o chest wall pain and pt c/o pain with palpation. EMS reports that pt stated "I hurt head to toe, I am dying." EMS reports that pt states he has been drinking everyday. VSS stable for EMS. On arrival, pt alert with slurred speech. Pt stated "I drank a few beers today." Pt has bruising to forehead and has a laceration to L eyebrow. Pt breaths e/u. Pt VSS. Upon my HPI patient will not answer any questions. He has to be aroused with painful stimuli. Once aroused he says "get the fuck off of me." Patient is unable to answer any of my questions and/or refuses to answer any of my questions. In reviewing past notes it does appear that the patient has been here multiple times positive EtOH complaining of chest pain. It also appears that the last time the patient was at this facility he did have a overdose of Tylenol. Patient was admitted and had a psychiatric evaluation. Patient does have a hematoma noted to his forehead and an abrasion noted over the left eyebrow. TRAVEL OUTSIDE OF THE [place] IN LAST 30 DAYS: No - Related Data Allergies/Adverse Reactions: No Known Allergies Allergy (Verified 02/26/18 08:55) Past Medical History - General Information source: Emergency Med Personnel, [facility] Records - Social History Smoking Status: Unknown if Ever Smoked Chew tobacco use (# tins/day): No Frequency of alcohol use: Heavy Drug Abuse: Other Family History: Other Patient has suicidal ideation: No Patient has homicidal ideation: No Renal/ Medical History: Denies: Hx Peritoneal Dialysis Review of Systems - Review of Systems -: Yes ROS unobtainable due to patient's medical condition - Heavily intoxicated Physical Exam - Vital signs Vitals: Pulse Ox 100 04/15/18 14:07 - Notes Notes: GENERAL: Appears to be sleeping, arousable with painful stimuli. Smells heavily of EtOH. HEAD: Normocephalic, swelling and hematoma noted central forehead. With an abrasion over the left eyebrow, dried blood noted around abrasion, looks to be new. EYES: Pupils equal, round, and reactive to light. Extraocular movements intact. ENT: Oral mucosa moist, Nares patent, no nasal septal hematoma, TM's intact, no hemotympanum noted bilaterally. NECK: Full range of motion. Supple. Trachea midline. LUNGS: Clear to auscultation bilaterally, no wheezes, rales, or rhonchi. No respiratory distress. HEART: Regular rate and rhythm. No murmur ABDOMEN: Soft, Non-distended. Bowel sounds present in all 4 quadrants. EXTREMITIES: Moves all 4 extremities spontaneously. No edema, normal radial and dorsalis pedis pulses bilaterally. No cyanosis. BACK: Atraumatic SKIN: Warm, dry, normal turgor. No rashes or lesions noted. Course - Re-evaluation Re-evalutation: Patient continues to appear to be sleeping. Again easily arousable with painful stimuli, when he does speak it is not slurred in nature. Nursing staff states they have been able to arouse him and he does answer their questions. He continues to not answer any of my questions. Patient's labs do show leukocytosis of 10.7. A hemoglobin hematocrit of 11.9 and 33.9 respectively. Patient's sodium is 147.8. He does have a negative troponin. Negative aspirin and Tylenol levels noted. Patient's alcohol level is noted to be 387. Patient's head and neck CT revealed no intracranial abnormality or fractures at this time. EKG shows sinus tachycardia rate of 100 QTC 454, no ST segment elevations or depressions noted. Patient will be monitored until clinically sober and able to be discharged. 04/16/18 04:19 Patient has been in the department for the last 9 hours. He is clinically sober at this time. Patient knows the date and the month. Patient states he wishes to be discharged at this time and is sitting on the edge of the bed. Patient cannot tell me how he injured his forehead or left eyebrow. Patient is denying any chest pain at this time. Patient stable for discharge. 04/16/18 04:22 - Vital Signs Vital signs: Temp Pulse Resp BP Pulse Ox 97.8 F 108 H 12 129/89 H 96 04/15/18 19:14 04/15/18 19:14 04/16/18 03:01 04/16/18 03:01 04/16/18 03:01 - Laboratory Result Diagrams: 04/15/18 18:10 04/15/18 18:10 Laboratory results interpreted by me: 04/15/18 04/15/18 18:10 18:10 WBC 10.7 H RBC 3.62 L Hgb 11.9 L Hct 33.9 L Sodium 147.8 H Chloride 110 H Salicylates < 1.0 L Acetaminophen < 10 L Serum Alcohol 387 H* Discharge - Discharge Clinical Impression: Alcohol intoxication Qualifiers: Complication of substance-induced condition: uncomplicated Qualified Code(s): F10.920 - Alcohol use, unspecified with intoxication, uncomplicated Head injury Qualifiers: Encounter type: initial encounter Qualified Code(s): S09.90XA - Unspecified injury of head, initial encounter Condition: Stable Disposition: HOME, SELF-CARE Instructions: Acute Alcohol Intoxication ([facility]), Chronic Alcoholism ([facility]) Additional Instructions: As we discussed you have been seen and treated in the emergency department for acute alcohol intoxication. You should follow-up with your primary care provider in the next 24-48 hours. You should also refrain from alcohol abuse. Please return to the emergency room for any other concerning symptoms.
[2018-04-16] MEDS ORDERED: DIPH/PERTUSS(ACELL)/TETANUS VAC/PF 0.5 ML SYR (>=10YO) IM ONE ×2 (01:06→04:15)
[2018-04-16 04:33] LABS: APPEARANCE,URINE CLEAR; BILIRUBIN,URINE NEGATIVE (NEGATIVE); COLOR,URINE YELLOW; GLUCOSE, URINE NEGATIVE (NEGATIVE); KETONES,URINE NEGATIVE (NEGATIVE); LEUKOCYTE ESTERASE,URINE NEGATIVE (NEGATIVE); NITRITE,URINE NEGATIVE (NEGATIVE); PROTEIN,URINE NEGATIVE (NEGATIVE); URINE SPECIFIC GRAVITY 1.016; UROBILINOGEN,URINE NEGATIVE mg/dL (<2.0)
[2018-04-16 04:46] LABS: URINE AMPHETAMINES SCREEN NEGATIVE; URINE BARBITURATES SCREEN NEGATIVE; URINE BENZODIAZEPINES SCREEN NEGATIVE; URINE COCAINE SCREEN NEGATIVE; URINE MARIJUANA (THC) SCREEN NEGATIVE; URINE METHADONE SCREEN NEGATIVE; URINE PHENCYCLIDINE SCREEN NEGATIVE
[2018-04-16 04:48] VITALS: BP 131/90
--- NOTE | 2018-04-16 07:56 | EKG REPORT ---
SEVERITY:- BORDERLINE ECG - SINUS TACHYCARDIA BORDERLINE T ABNORMALITIES, ANT-LAT LEADS : Confirmed by: Sammi Spears MD 16-Apr-2018 07:55:25
== END 2018-04-16 04:30 | disposition home or self-care (01) ==
LOC: ER 18:56
DX: S09.90XA Unspecified injury of head, initial encounter (principal); S00.83XA Contusion of other part of head, initial encounter; S00.212A Abrasion of left eyelid and periocular area, initial encounter; R07.89 Other chest pain; F10.920 Alcohol use, unspecified with intoxication, uncomplicated; X58.XXXA Exposure to other specified factors, initial encounter
CPT/HCPCS: 36415; 70450; 72125; 80053; 80307; 81001; 84484; 85025; 90471; 90715; 93005; 93010; 99285

== ENCOUNTER 2018-04-16 05:51 | Emergency (ER) | payer SELFPAY ==
--- NOTE | 2018-04-16 06:44 | ER Document Report ---
ED General - General Chief Complaint: Chest Pain > 30 Stated Complaint: CHEST PAIN Time Seen by Provider: 04/16/18 06:07 TRAVEL OUTSIDE OF THE [place] IN LAST 30 DAYS: No - HPI Notes: Patient is a 42-year-old male that presents to the emergency department for chief complaint of chest pain and "nowhere to go". The patient states he was recently seen in the emergency room. When he was discharged he started walking down the street. He states "baby girl I am not going to lie to you I had nowhere to go so I came back". Patient reports chest pain that has been going on for "a while". He states that his pain is been constant for at least the past few days. He denies any change in his chest pain today from previous episodes of chest pain. He denies any associated shortness of breath, diaphoresis, nausea, vomiting and diarrhea. Patient states that when he left he did not drink more alcohol or ingested any other medications. He states he was walking along the side of the road but since it was cold and he had nowhere to go he returned. Past Medical History: Reviewed in chart Past Surgical History: Reviewed in chart Social History: Alcohol abuse Family History: Reviewed and noncontributory for presenting illness Allergies: Reviewed, see documented allergy list. REVIEW OF SYSTEMS: CONSTITUTIONAL : No fever No chills No diaphoresis No recent illness EENT: No vision changes No congestion No sore throat CARDIOVASCULAR: chest pain No palpitations RESPIRATORY: No shortness of breath No cough No difficulty breathing GASTROINTESTINAL: No abdominal pain No nausea No vomiting No diarrhea GENITOURINARY: No dysuria No hematuria No difficulty urinating MUSCULOSKELETAL: No back pain No leg pain No arm pain SKIN: No rashes No lesions LYMPHATIC: No swollen, enlarged glands. NEUROLOGICAL: No lightheadedness No headache No weakness No paresthesias PSYCHIATRIC: No anxiety No depression PHYSICAL EXAMINATION: Vital signs reviewed, nursing noted reviewed. GENERAL: Well-appearing, well-nourished and in no acute distress. HEAD: Atraumatic, normocephalic. EYES: Eyes appear normal, extraocular movements intact, sclera anicteric, conjunctiva are normal. ENT: nares patent, oropharynx clear without exudates. Moist mucous membranes. NECK: Normal range of motion, supple without lymphadenopathy LUNGS: Breath sounds clear to auscultation bilaterally and equal. No wheezes rales or rhonchi. HEART: Regular rate and rhythm without murmurs ABDOMEN: Soft, nontender, normoactive bowel sounds. No rebound, guarding, or rigidity. No masses appreciated. EXTREMITIES: Nontender, good range of motion, no pitting or edema. NEUROLOGICAL: No focal neurological deficits. Moves all extremities spontaneously Motor and sensory grossly intact on exam. PSYCH: Normal mood, normal affect. SKIN: Warm, Dry, normal turgor, no rashes or lesions noted on exposed skin - Related Data Allergies/Adverse Reactions: No Known Allergies Allergy (Verified 02/26/18 08:55) Past Medical History - Social History Smoking Status: Current Every Day Smoker Family History: Reviewed & Not Pertinent Renal/ Medical History: Denies: Hx Peritoneal Dialysis Physical Exam - Vital signs Vitals: Temp Pulse Resp BP Pulse Ox 98 F 95 18 130/87 H 97 04/16/18 05:52 04/16/18 05:52 04/16/18 05:52 04/16/18 05:52 04/16/18 05:52 Course - Re-evaluation Re-evalutation: 04/16/18 06:42 Vitals reviewed. Nursing notes reviewed. Patient's known to this department for history of alcohol consumption and chest pains. He was recently admitted to the hospital for Tylenol overdose. Patient was seen in the emergency room last night and had complete workup including troponins, tox, aspirin and Tylenol levels. He denies any ingestion since leaving the department. His chest pain is chronic and unchanged today. His EKG is the same as previous. I do not suspect his chest pain today is related to ACS. He does admit that he just came back because it was cold outside and he had nowhere to go. He is clinically sober. He is able to have a conversation and ambulate without difficulty. Patient recently had evaluation by psych and declined wanting any help for his substance abuse. No further workup of his chest pain is currently indicated. He will return for any new or worsening symptoms. Patient will be discharged in stable condition. - Vital Signs Vital signs: Temp Pulse Resp BP Pulse Ox 98 F 95 18 130/87 H 97 04/16/18 05:52 04/16/18 05:52 04/16/18 05:52 04/16/18 05:52 04/16/18 05:52 - Diagnostic Test Radiology reviewed: Image reviewed - EKG Interpretation by Me Additional EKG results interpreted by me: 04/16/18 06:44 Interpreted by myself 0600: Normal sinus rhythm, rate 92, normal axis, no ectopy, unchanged from 04/15/18 Discharge - Discharge Clinical Impression: Chest pain Qualifiers: Chest pain type: unspecified Qualified Code(s): R07.9 - Chest pain, unspecified Condition: Stable Disposition: HOME, SELF-CARE Instructions: Chest Pain of Unclear Cause ([facility]) Additional Instructions: Please return to the emergency department if you have any worsening, or concern of your symptoms. Please return to the emergency department if you develop chest pain, difficulty breathing, severe abdominal pain, or ongoing vomiting. Please follow-up with your primary care physician in 2-3 days and any other recommended physicians. If prescribed, take all medications as directed. If you have any questions or concerns do not hesitate to return the emergency department for evaluation. [] Referrals: [facility] [Provider Group] - Follow up as needed
--- NOTE | 2018-04-16 06:48 | RADIOLOGY REPORT (SQ) ---
EXAM DESCRIPTION: XR CHEST 1 VIEW COMPLETED DATE/TME: 04/16/2018 06:07 CLINICAL HISTORY: 42 years, Male, chest pain COMPARISON: None. NUMBER OF VIEWS: One TECHNIQUE: AP view of the chest LIMITATIONS: None. FINDINGS: Lungs are clear. There are no pleural abnormalities. The cardiac silhouette and pulmonary vessels are normal. IMPRESSION: No acute cardiopulmonary disease. copyright 2010 [employer]- All Rights Reserved
[2018-04-16 07:09] VITALS: BP 125/80
--- NOTE | 2018-04-16 07:56 | EKG REPORT ---
SEVERITY:- BORDERLINE ECG - SINUS RHYTHM BORDERLINE T WAVE ABNORMALITIES : Confirmed by: Sammi Spears MD 16-Apr-2018 07:55:20
== END 2018-04-16 08:21 | disposition home or self-care (01) ==
LOC: ER 05:51
DX: R07.9 Chest pain, unspecified (principal); F17.200 Nicotine dependence, unspecified, uncomplicated
CPT/HCPCS: 71045; 93005; 93010; 99283

== ENCOUNTER 2018-04-16 20:06 | Emergency (ER) | payer SELFPAY ==
[2018-04-16 21:32] VITALS: BP 147/90
--- NOTE | 2018-04-16 22:25 | ER Document Report ---
HPI - HPI Patient complains to provider of: ETOH, fall Time Seen by Provider: 04/16/18 22:21 Pain Level: Denies Context: 42-year-old male well-known to the emergency department seen here earlier in the evening presents for possible head injury, but patient admits to being intoxicated with alcohol. Patient was attempting to leave but I persuaded patient to stay to ensure that he was safe and stable for discharge. Patient was intoxicated but following commands. Patient denies headache, dizziness, nausea, vomiting, vision changes. - CONSTITUTIONAL Constitutional: REPORTS: Fever - EENT EENT: REPORTS: Sore Throat, Ear Pain - NEURO Neurology: REPORTS: Headache, Weakness - CARDIOVASCULAR Cardiovascular: REPORTS: Chest pain - hurting for days - RESPIRATORY Respiratory: REPORTS: Trouble Breathing, Coughing - GASTROINTESTINAL Gastrointestinal: REPORTS: Abdominal Pain, Black / Bloody Stools - REPRODUCTIVE Reproductive: DENIES: : Past Medical History - Social History Smoking Status: Current Every Day Smoker Drug Abuse: None, Marijuana Family History: Reviewed & Not Pertinent Patient has suicidal ideation: No Patient has homicidal ideation: No Renal/ Medical History: Denies: Hx Peritoneal Dialysis Vertical Provider Document - INFECTION CONTROL TRAVEL OUTSIDE OF THE [place] IN LAST 30 DAYS: No - HEENT HEENT: Normocephalic - Small healing abrasion above the left eyebrow - NECK Neck: Normal Inspection - RESPIRATORY Respiratory: Breath Sounds Normal - NEURO Level of Consciousness: Awake, Alert, Appropriate Motor/Sensory: No Motor Deficit, No Sensory Deficit. negative: Weak Motor Strength RUE, Weak Motor Strength LUE, Weak Motor Strength RLE, Weak Motor Strength LLE - DERM Integumentary: Warm, Dry Course - Re-evaluation Re-evalutation: 04/16/18 22:22 42-year-old male well-known to this ED presents for possible head injury. Prior to seeing him he was walking around the emergency department and we had to persuade him to go sit back into his room. He stated he wanted to leave without being seen. I convinced him to allow me to perform an exam to ensure his safety. at this time I have low suspicion for a head injury. He did admit to being drunk. He denies falling, striking his head, passing out, or losing consciousness. He denies neck pain. Normal neuro exam. No evidence of any focal neuro deficits return for need to scan head. Patient asks to leave. He does not want to stay. I have evaluated him and deemed he is safe and stable for discharge with strict return precautions. 04/17/18 02:04 - Vital Signs Vital signs: Temp Pulse Resp BP Pulse Ox 98.5 F 113 H 16 147/90 H 93 04/16/18 20:34 04/16/18 20:34 04/16/18 20:34 04/16/18 20:34 04/16/18 20:34 Discharge - Discharge Clinical Impression: Scalp abrasion, non-infected Condition: Good Disposition: HOME, SELF-CARE Additional Instructions: You are seen in the emergency department this evening for a scalp abrasion you did have a normal neurologic exam. You do want to leave which is understandable. At this time I have low suspicion that you have a head injury. He did admit to being drunk. Please return to the emergency department if you have any other concerns or if you notice any changes in your mental status or you develop weakness in any of your limbs, or if you pass out.
== END 2018-04-16 22:31 | disposition home or self-care (01) ==
LOC: ER 20:06
DX: S00.01XA Abrasion of scalp, initial encounter (principal); S00.212A Abrasion of left eyelid and periocular area, initial encounter; X58.XXXA Exposure to other specified factors, initial encounter; F10.129 Alcohol abuse with intoxication, unspecified; R51 Headache; R07.9 Chest pain, unspecified; J02.9 Acute pharyngitis, unspecified; H92.09 Otalgia, unspecified ear; R06.00 Dyspnea, unspecified; R05 Cough
CPT/HCPCS: 99282

== ENCOUNTER 2018-08-03 12:56 | Emergency (ER) | payer SELFPAY ==
--- NOTE | 2018-08-03 13:16 | ER Document Report ---
ED General - General Stated Complaint: ETOH Time Seen by Provider: 08/03/18 13:08 Primary Care Provider: [facility] [Provider Group] - Follow up in 3-5 days Notes: Patient is a 43-year-old male with history of alcoholism that presents to the emergency department for chief complaint of alcohol intoxication. Patient was apparently found sleeping underneath a blush in public, and was brought to the emergency department by EMS. Patient states he had been drinking last night and this morning, he states he drinks "a lot" of liquor, will not specify how much. He states he does this almost on a daily basis. Denies having any confusion, lightheadedness, dizziness chest pain, shortness of breath, nausea, vomiting, abdominal pain. He states that he is just tired and would like to rest. He denies any other complaints at this time. Past Medical History: Chronic alcohol use Past Surgical History: Denies surgical history Social History: Patient admits to smoking cigarettes, and daily alcohol use, denies illicit drug use, he is currently homeless. Family History: Reviewed and noncontributory for presenting illness Allergies: Reviewed, see documented allergy list. REVIEW OF SYSTEMS: Other than noted above, the 12 point review of systems was reviewed with the patient and were negative, all pertinent findings are included in the HPI. PHYSICAL EXAMINATION: Vital signs reviewed, nursing noted reviewed. GENERAL: Well-appearing, well-nourished and in no acute distress. HEAD: Atraumatic, normocephalic. EYES: Eyes appear normal, sclera anicteric, conjunctiva are normal. ENT: Moist mucous membranes. NECK: Normal range of motion, supple without lymphadenopathy LUNGS: Breath sounds clear to auscultation bilaterally and equal. No wheezes rales or rhonchi. HEART: Regular rate and rhythm without murmurs EXTREMITIES: Nontender, good range of motion, no pitting or edema. NEUROLOGICAL: No focal neurological deficits. Moves all extremities spontaneously Motor and sensory grossly intact on exam. PSYCH: Normal mood, normal affect. SKIN: Warm, Dry, normal turgor, no rashes or lesions noted on exposed skin TRAVEL OUTSIDE OF THE [place] IN LAST 30 DAYS: No - Related Data Allergies/Adverse Reactions: No Known Allergies Allergy (Verified 02/26/18 08:55) Past Medical History - Social History Smoking Status: Current Every Day Smoker Family History: Reviewed & Not Pertinent Renal/ Medical History: Denies: Hx Peritoneal Dialysis Physical Exam - Vital signs Vitals: Temp Pulse Resp BP Pulse Ox 98.3 F 68 16 130/84 H 97 08/03/18 13:10 08/03/18 13:10 08/03/18 13:10 08/03/18 13:10 08/03/18 13:10 Course - Re-evaluation Re-evalutation: Patient seen and examined, vital signs reviewed, patient appears well on exam, he was somewhat intoxicated, but answering questions appropriately, he states that he was just tired, and wanted to get some rest, and did not have any other complaints at this time. I feel that the patient can be discharged to home, he does not drive a car and does not own a car, and does not have family in the area, but patient was agreeable to being discharged, given resources for homeless patients. - Vital Signs Vital signs: Temp Pulse Resp BP Pulse Ox 98.3 F 68 16 130/84 H 97 08/03/18 13:10 08/03/18 13:10 08/03/18 13:10 08/03/18 13:10 08/03/18 13:10 Discharge - Discharge Clinical Impression: Alcohol intoxication Qualifiers: Complication of substance-induced condition: uncomplicated Qualified Code(s): F10.920 - Alcohol use, unspecified with intoxication, uncomplicated Condition: Stable Disposition: HOME, SELF-CARE Instructions: Acute Alcohol Intoxication ([facility]) Referrals: [facility] [Provider Group] - Follow up in 3-5 days
[2018-08-03 14:23] VITALS: BP 130/84
== END 2018-08-03 15:54 | disposition home or self-care (01) ==
LOC: ER 12:56
DX: F10.920 Alcohol use, unspecified with intoxication, uncomplicated (principal); F17.210 Nicotine dependence, cigarettes, uncomplicated; Z59.0 Homelessness
CPT/HCPCS: 99284

== ENCOUNTER 2018-10-06 22:58 | Emergency (ER) | payer SELFPAY ==
[2018-10-06 23:30] VITALS: BP 129/75
--- NOTE | 2018-10-07 00:13 | ER Document Report ---
ED General - General Chief Complaint: ETOH Abuse Stated Complaint: FALL Time Seen by Provider: 10/07/18 00:04 Notes: 43-year-old -[place] male. Brought in by EMS for intoxication. Found in the bushes by [place]. No signs of trauma. Patient well-known locally. Multiple visits to the ER for intoxication. Patient denies any symptoms at this time. TRAVEL OUTSIDE OF THE [place] IN LAST 30 DAYS: No - HPI Onset: Just prior to arrival Severity: None Pain Level: Denies Associated symptoms: Other - Intoxicated - Related Data Allergies/Adverse Reactions: No Known Allergies Allergy (Verified 02/26/18 08:55) Past Medical History - General Information source: Patient, [facility] Records - Social History Smoking Status: Unknown if Ever Smoked Frequency of alcohol use: Heavy Drug Abuse: None Family History: Reviewed & Not Pertinent Patient has suicidal ideation: No Patient has homicidal ideation: No - Medical History Notes: Alcohol abuse Renal/ Medical History: Denies: Hx Peritoneal Dialysis Review of Systems - Review of Systems Notes: Constitutional: denies: Chills, Diaphoresis, Fever, Malaise, Weakness EENT: denies: Eye discharge, Blurred vision, Tearing, Double vision, Nose congestion, Nose discharge, Throat swelling, Mouth pain Cardiovascular: denies: Palpitations, Heart racing, Orthopnea, Dyspnea, Chest pain Respiratory: denies: Cough, Hurts to breathe, Wheezing, Shortness of breath Gastrointestinal: denies: Abdominal pain, Diarrhea, Nausea, Vomiting, Black stools, bright red blood in stool Genitourinary: denies: Burning, Dysuria, Discharge, Frequency, Flank pain, Hem aturia Musculoskeletal: denies: Joint pain, Joint swelling, Muscle pain, Muscle stiffness, back pain Hematologic/Lymphatic: denies: Anemia, Easy bleeding, Easy bruising, Blood clots Neurological/Psychological: denies: Confusion, Dementia, Depression, Loss of consciousness Skin: No lesions, no masses, no skin breakdown, no abscesses Physical Exam - Vital signs Vitals: Pulse Resp BP Pulse Ox 99 20 129/75 H 96 10/06/18 22:58 10/06/18 22:58 10/06/18 22:58 10/06/18 22:58 Interpretation: Normal - Notes Notes: No signs of trauma. Easily arousable. Following commands. - General General appearance: Appears well, Alert - HEENT Head: Normocephalic, Atraumatic Eyes: Normal Pupils: PERRL - Respiratory Respiratory status: No respiratory distress Chest status: Nontender Breath sounds: Normal Chest palpation: Normal - Cardiovascular Rhythm: Regular Heart sounds: Normal auscultation Murmur: No - Abdominal Inspection: Normal Distension: No distension Bowel sounds: Normal Tenderness: Nontender Organomegaly: No organomegaly - Back Back: Normal, Nontender - Extremities General upper extremity: Normal inspection, Nontender, Normal color, Normal ROM, Normal temperature General lower extremity: Normal inspection, Nontender, Normal color, Normal ROM, Normal temperature, Normal weight bearing. No: Stepan's sign - Neurological Neuro grossly intact: Yes Cognition: Normal Orientation: AAOx4 Bassam Coma Scale Eye Opening: Spontaneous Rainier Coma Scale Verbal: Oriented Bassam Coma Scale Motor: Obeys Commands Bassam Coma Scale Total: 15 Speech: Normal Motor strength normal: LUE, RUE, LLE, RLE Sensory: Normal - Psychological Associated symptoms: Normal affect, Normal mood - Skin Skin Temperature: Warm Skin Moisture: Dry Skin Color: Normal Course - Re-evaluation Re-evalutation: 10/07/18 02:34 This time patient does appear intoxicated. Labs confirmed. Will await patient's sobriety and then DC. There was no signs of trauma. Patient is following commands and acting appropriate for his current condition. 10/07/18 05:04 Alcohol level is over 300. Patient has been resting comfortably all night. We will keep until he is clinically sober. 10/07/18 05:47 Patient was advised that his alcohol level was likely still too high. He agreed to stay but then when we are not watching patient walked out of the ER. Police department has been notified. 10/07/18 05:47 Laboratory 10/07/18 10/07/18 10/07/18 00:30 00:30 00:31 WBC 7.5 RBC 3.91 L Hgb 12.2 L Hct 35.2 L MCV 90 MCH 31.2 MCHC 34.6 RDW 13.0 Plt Count 175 Seg Neutrophils % 37.5 L Lymphocytes % 46.4 H Monocytes % 8.3 Eosinophils % 7.0 H Basophils % 0.8 Absolute Neutrophils 2.8 Absolute Lymphocytes 3.5 Absolute Monocytes 0.6 Absolute Eosinophils 0.5 Absolute Basophils 0.1 Sodium 148.6 H Potassium 3.8 Chloride 110 H Carbon Dioxide 27 Anion Gap 12 BUN 12 Creatinine 0.73 Est GFR ( Amer) > 60 Est GFR (Non-Af Amer) > 60 Glucose 100 POC Glucose 95 Calcium 8.5 Total Bilirubin 0.4 Direct Bilirubin 0.2 Neonat Total Bilirubin Not Reportable Neonat Direct Bilirubin Not Reportable Neonat Indirect Bili Not Reportable AST 37 ALT 19 L Alkaline Phosphatase 69 Total Protein 7.2 Albumin 4.1 Serum Alcohol 362 H* - Vital Signs Vital signs: Temp Pulse Resp BP Pulse Ox 99 20 129/75 H 96 10/06/18 22:58 10/06/18 22:58 10/06/18 22:58 10/06/18 22:58 - Laboratory Result Diagrams: 10/07/18 00:30 10/07/18 00:30 Laboratory results interpreted by me: 10/07/18 10/07/18 00:30 00:30 RBC 3.91 L Hgb 12.2 L Hct 35.2 L Seg Neutrophils % 37.5 L Lymphocytes % 46.4 H Eosinophils % 7.0 H Sodium 148.6 H Chloride 110 H ALT 19 L Serum Alcohol 362 H* Discharge - Discharge Clinical Impression: Acute alcohol intoxication Qualifiers: Complication of substance-induced condition: uncomplicated Qualified Code(s): F10.920 - Alcohol use, unspecified with intoxication, uncomplicated Condition: Good Disposition: HOME, SELF-CARE Instructions: Acute Alcohol Intoxication ([facility])
[2018-10-07 01:15] LABS: ABSOLUTE BASOPHILS # (AUTO) 0.1 10^3/uL (0.0-0.2); ABSOLUTE EOSINOPHILS # (AUTO) 0.5 10^3/uL (0.0-0.6); ABSOLUTE LYMPHOCYTES (AUTO) 3.5 10^3/uL (0.5-4.7); ABSOLUTE MONOCYTES (AUTO) 0.6 10^3/uL (0.1-1.4); ABSOLUTE NEUT (AUTO) 2.8 10^3/uL (1.7-8.2); BASOPHILS % (AUTO) 0.8 % (0-2); HEMATOCRIT 35.2 % (37.9-51.0); HEMOGLOBIN 12.2 g/dL (13.5-17.0); LYMPHOCYTES % (AUTO) 46.4 % (13-45); MEAN CORPUSCULAR HEMOGLOBIN 31.2 pg (27.0-33.4); MEAN CORPUSCULAR HGB CONC 34.6 g/dL (32.0-36.0); MEAN CORPUSCULAR VOLUME 90 fl (80-97); MONOCYTES % (AUTO) 8.3 % (3-13); PLATELET COUNT 175 10^3/uL (150-450); RED BLOOD COUNT 3.91 10^6/uL (4.35-5.55); SEGMENTED NEUTROPHILS % (AUTO) 37.5 % (42-78); TOTAL CELLS COUNTED % (AUTO) 100 %; WHITE BLOOD COUNT 7.5 10^3/uL (4.0-10.5)
[2018-10-07 01:48] LABS: ALANINE AMINOTRANSFERASE 19 U/L (21-72); ALBUMIN 4.1 g/dL (3.5-5.0); ALKALINE PHOSPHATASE 69 U/L (38-126); ANION GAP 12 (5-19); ASPARTATE AMINO TRANSFERASE 37 U/L (17-59); BILIRUBIN,DIRECT 0.2 mg/dL (0.0-0.4); BILIRUBIN,TOTAL 0.4 mg/dL (0.2-1.3); BLOOD UREA NITROGEN 12 mg/dL (7-20); CALCIUM 8.5 mg/dL (8.4-10.2); CARBON DIOXIDE 27 mmol/L (22-30); CHLORIDE 110 mmol/L (98-107); GLUCOSE 100 mg/dL (75-110); POTASSIUM 3.8 mmol/L (3.6-5.0); SODIUM 148.6 mmol/L (137-145); TOTAL PROTEIN 7.2 g/dL (6.3-8.2)
[2018-10-07 02:01] LABS: ALCOHOL 362 mg/dL (NONE DETECTED)
--- NOTE | 2018-10-09 07:56 | EKG REPORT ---
SEVERITY:- ABNORMAL ECG - SINUS RHYTHM NONSPECIFIC T ABNORMALITIES, ANT-LAT LEADS : Confirmed by: Emerson Dietz MD 09-Oct-2018 07:55:36
== END 2018-10-07 05:55 | disposition home or self-care (01) ==
LOC: ER 22:58
DX: F10.920 Alcohol use, unspecified with intoxication, uncomplicated (principal)
CPT/HCPCS: 36415; 80053; 80307; 82962; 85025; 93005; 93010; 99284

== ENCOUNTER 2018-12-05 12:51 | Emergency (ER) | payer SELFPAY ==
--- NOTE | 2018-12-05 13:45 | ER Document Report ---
ED General - General Stated Complaint: ETOH Time Seen by Provider: 12/05/18 13:40 Notes: Patient brought in by EMS. Patient was found in the bathroom of a local grocery store with a broken bottle of wine spilled around him. He was fairly responsive. Had urinated all over himself and it also been vomiting. Patient was not able to provide any other information because he apparently is under the influence of some substance. He does open his eyes and moves slightly when significant tactile stimulation applied. TRAVEL OUTSIDE OF THE [place] IN LAST 30 DAYS: No - Related Data Allergies/Adverse Reactions: No Known Allergies Allergy (Verified 02/26/18 08:55) Past Medical History - Social History Smoking Status: Unknown if Ever Smoked Family History: Reviewed & Not Pertinent Renal/ Medical History: Denies: Hx Peritoneal Dialysis Review of Systems - Review of Systems -: Yes ROS unobtainable due to patient's medical condition - Patient is unable to answer any questions or provide any medical history. Physical Exam - Vital signs Vitals: Temp Resp BP Pulse Ox 97.8 F 17 120/78 95 12/05/18 12:57 12/05/18 12:57 12/05/18 12:57 12/05/18 12:57 Interpretation: Normal Notes: PHYSICAL EXAMINATION: GENERAL: Well-appearing, in no acute distress. Very sleepy and poor to respond to any stimulus, especially verbal. Does wince and open his eyes with significant tactile stimulation. HEAD: Atraumatic, normocephalic. EYES: Pupils equal round and reactive to light, extraocular movements intact. ENT: oropharynx clear without exudates. Moist mucous membranes. NECK: Normal range of motion, supple. LUNGS: Breath sounds clear and equal bilaterally. HEART: Regular rate and rhythm without murmurs. ABDOMEN: Soft, nontender. No guarding or rebound. No masses. BACK: No tenderness throughout entire back. EXTREMITIES: Normal range of motion without pain. NEUROLOGICAL: Extremely sleepy. Does not speak. Unable to stand or walk. Not awake, alert, and oriented at all. Responds to painful tactile stimulation, but does not follow commands. SKIN: Warm, dry, no rashes. Course - Re-evaluation Re-evalutation: 12/05/18 19:47 My plan is to let this patient sleep off the alcohol intoxication. I queried him about whether he had intended any harm to himself or suicide by drinking so excessively and he said no. He has awakened sufficiently that he responds to verbal stimulation as well as tactile stimulation. He still fairly sleepy. Patient's lab studies were all normal other than his alcohol level of 482. - Vital Signs Vital signs: Temp Pulse Resp BP Pulse Ox 98.1 F 65 16 116/65 97 12/06/18 01:00 12/06/18 01:00 12/06/18 01:00 12/06/18 01:00 12/06/18 01:00 - Laboratory Result Diagrams: 12/05/18 13:06 12/05/18 13:06 Laboratory results interpreted by me: 12/05/18 12/05/18 13:06 16:40 AST 72 H Urine Blood SMALL H Serum Alcohol 482 H* - EKG Interpretation by Me EKG shows normal: Sinus rhythm Rate: Normal Rhythm: NSR Discharge - Discharge Clinical Impression: Alcohol intoxication, Alcohol abuse Condition: Stable Disposition: HOME, SELF-CARE Additional Instructions: ACUTE ALCOHOL INTOXICATION and ALCOHOL ABUSE: Your evaluation revealed very high levels of alcohol. You can from drinking a large amount of alcohol rapidly! Further, there's the risk of falls, traffic accidents, and fights. A high portion (about 50 percent) of the serious injuries seen in hospital emergency rooms are caused by alcohol. Alcohol overdosage is usually due to an underlying emotional or psychiatric problem. You may benefit from counselling. If "binge" drinking is an ongoing problem for you, or if you drink ANY AMOUNT of alcohol EVERY day, you most likely have a tendency to alcoholism. You should avoid alcohol totally. We can refer you for treatment. Persons with al cohol problems are often also prone to other addictions -- you should discuss any use of medications or drugs with the doctor. You should be watched at home for the next several hours by someone who has not been drinking. Get extra fluids for the next 24 hours. Call the doctor if there is repeated vomiting, increasing headache, decreasing level of alertness, or any other worsening. CHRONIC ALCOHOLISM and ALCOHOL ABUSE: Your evaluation reveals evidence of chronic alcoholism, an addiction to alcohol. The tendency to alcoholism may be inherited. Chronic use of alcohol weakens muscles, causes fatty deposits in the liver, damages the stomach, makes you more prone to infections, and can cause defects in unborn children. In the long run, brain atrophy and cirrhosis of the liver result. You are also at greater risk for certain types of cancer, such as cancer of the mouth, throat, stomach, and liver. Counselling services are available to help you. In-hospital treatment programs often help. Support groups such as Alcoholics Anonymous can be very useful in beating this addiction. Your physician can make a referral for you. As alcoholics often are prone to other addictions, you should discuss your use of any other medications with the doctor. FOLLOW-UP CARE: If you have been referred to a physician for follow-up care, call the physicians office for an appointment as you were instructed or within the next two days. If you experience worsening or a significant change in your symptoms, notify the physician immediately or return to the Emergency Department at any time for re-evaluation.
[2018-12-05 13:56] LABS: ABSOLUTE BASOPHILS # (AUTO) 0.1 10^3/uL (0.0-0.2); ABSOLUTE EOSINOPHILS # (AUTO) 0.1 10^3/uL (0.0-0.6); ABSOLUTE LYMPHOCYTES (AUTO) 2.2 10^3/uL (0.5-4.7); ABSOLUTE MONOCYTES (AUTO) 0.4 10^3/uL (0.1-1.4); ABSOLUTE NEUT (AUTO) 2.9 10^3/uL (1.7-8.2); BASOPHILS % (AUTO) 1.1 % (0-2); EOSINOPHILS % (AUTO) 2.4 % (0-6); HEMATOCRIT 43.5 % (37.9-51.0); HEMOGLOBIN 15.2 g/dL (13.5-17.0); LYMPHOCYTES % (AUTO) 38.7 % (13-45); MEAN CORPUSCULAR HEMOGLOBIN 31.5 pg (27.0-33.4); MEAN CORPUSCULAR HGB CONC 34.9 g/dL (32.0-36.0); MEAN CORPUSCULAR VOLUME 90 fl (80-97); MONOCYTES % (AUTO) 6.9 % (3-13); PLATELET COUNT 192 10^3/uL (150-450); RED BLOOD COUNT 4.82 10^6/uL (4.35-5.55); RED CELL DISTRIBUTION WIDTH 13.8 % (11.5-14.0); SEGMENTED NEUTROPHILS % (AUTO) 50.9 % (42-78); TOTAL CELLS COUNTED % (AUTO) 100 %; WHITE BLOOD COUNT 5.8 10^3/uL (4.0-10.5)
[2018-12-05 14:04] LABS: ALBUMIN 4.5 g/dL (3.5-5.0); ALKALINE PHOSPHATASE 84 U/L (38-126); ANION GAP 14 (5-19); ASPARTATE AMINO TRANSFERASE 72 U/L (17-59); BILIRUBIN,DIRECT 0.2 mg/dL (0.0-0.4); BILIRUBIN,TOTAL 0.9 mg/dL (0.2-1.3); BLOOD UREA NITROGEN 13 mg/dL (7-20); CALCIUM 8.6 mg/dL (8.4-10.2); CARBON DIOXIDE 26 mmol/L (22-30); CHLORIDE 105 mmol/L (98-107); GLUCOSE 108 mg/dL (75-110); POTASSIUM 4.1 mmol/L (3.6-5.0); TOTAL PROTEIN 8.2 g/dL (6.3-8.2)
[2018-12-05 14:12] LABS: ALCOHOL 482 mg/dL (NONE DETECTED)
--- NOTE | 2018-12-05 14:13 | RADIOLOGY REPORT (SQ) ---
EXAM DESCRIPTION: CT HEAD WITHOUT COMPLETED DATE/TIME: 12/05/2018 2:00 pm REASON FOR STUDY: Found unresponsive, awakens, no lateralizing signs COMPARISON: 04/15/2018 TECHNIQUE: Axial images acquired through the brain without intravenous contrast. Images reviewed wi th bone, brain and subdural windows. Additional sagittal and coronal reconstructions were generated. Images stored on PACS. All CT scanners at this facility use dose modulation, iterative reconstruction, and/or weight based d osing when appropriate to reduce radiation dose to as low as reasonably achievable (ALARA). [facility]: Dose Right [facility]: CareDose [facility]: Dose Right [facility]: Teradose 4D [facility]: [employer] RADIATION DOSE: CT Rad equipment meets quality standard of care and radiation dose reduction techniq ues were employed. CTDIvol: 53.2 mGy. DLP: 1070 mGy-cm. mGy. LIMITATIONS: None. FINDINGS: VENTRICLES: Normal size and contour. CEREBRUM: No masses. No hemorrhage. No midline shift. No evidence for acute infarction. Normal gra y/white matter differentiation. No areas of low density in the white matter. CEREBELLUM: No masses. No hemorrhage. No alteration of density. No evidence for acute infarction. EXTRAAXIAL SPACES: No fluid collections. No masses. ORBITS AND GLOBE: No intra- or extraconal masses. Normal contour of globe without masses. CALVARIUM: No fracture. PARANASAL SINUSES: No fluid or mucosal thickening. SOFT TISSUES: No mass or hematoma. OTHER: No other significant finding. IMPRESSION: NORMAL BRAIN CT WITHOUT CONTRAST. EVIDENCE OF ACUTE STROKE: NO. COMMENT: Quality ID # [id number]: Final reports with documentation of one or more dose reduction techniques (e.g., Automated exposure control, adjustment of the mA and/or kV according to patient size, use of iterative reconstruction technique) TECHNICAL DOCUMENTATION: JOB ID: [id number] [employer]- All Rights Reserved Reading location - IP/workstation name: [email or web address]
[2018-12-05 17:03] LABS: APPEARANCE,URINE CLEAR; BILIRUBIN,URINE NEGATIVE (NEGATIVE); COLOR,URINE YELLOW; GLUCOSE, URINE NEGATIVE (NEGATIVE); KETONES,URINE NEGATIVE (NEGATIVE); LEUKOCYTE ESTERASE,URINE NEGATIVE (NEGATIVE); NITRITE,URINE NEGATIVE (NEGATIVE); PROTEIN,URINE NEGATIVE (NEGATIVE); UROBILINOGEN,URINE NEGATIVE mg/dL (<2.0)
[2018-12-05 17:08] LABS: ADD MANUAL MICROSCOPIC YES
[2018-12-05 17:24] LABS: URINE AMPHETAMINES SCREEN NEGATIVE; URINE BARBITURATES SCREEN NEGATIVE; URINE BENZODIAZEPINES SCREEN NEGATIVE; URINE COCAINE SCREEN NEGATIVE; URINE MARIJUANA (THC) SCREEN NEGATIVE; URINE METHADONE SCREEN NEGATIVE; URINE PHENCYCLIDINE SCREEN NEGATIVE
[2018-12-05 17:28] LABS: WBC,URINE 0-1 /HPF
[2018-12-06 07:29] VITALS: BP 116/65
--- NOTE | 2018-12-06 08:55 | EKG REPORT ---
SEVERITY:- NORMAL ECG - SINUS RHYTHM : Confirmed by: Sammi Spears MD 06-Dec-2018 08:53:44
== END 2018-12-06 03:57 | disposition home or self-care (01) ==
LOC: ER 12:51
DX: F10.129 Alcohol abuse with intoxication, unspecified (principal); Y90.8 Blood alcohol level of 240 mg/100 ml or more; R40.4 Transient alteration of awareness
CPT/HCPCS: 36415; 70450; 80053; 80307; 81001; 85025; 93005; 93010; 99284

== ENCOUNTER 2018-12-06 18:02 | Emergency (ER) | payer SELFPAY ==
--- NOTE | 2018-12-06 20:40 | RADIOLOGY REPORT (SQ) ---
CT HEAD WITHOUT IV CONTRAST EXAM DATE: 12/06/2018 12:00 AM CDT HISTORY: HEAD INJURY, SWELLING TO THE HEAD. COMPARISON: None. TECHNIQUE: CT scan of the brain without IV contrast. This exam was performed according to our departmental dose-optimization program, which includes automated exposure control, adjustment of the mA and/or kV according to patient size and/or use of iterative reconstruction technique. FINDINGS: The ventricles, cisterns, and sulci are age-appropriate. No evidence of acute infarction, intracranial hemorrhage, extra-axial fluid collection, or midline shift. No air-fluid levels are seen in the paranasal sinuses to suggest acute sinusitis. No depressed skull fracture. IMPRESSION: No acute intracranial findings.
--- NOTE | 2018-12-06 20:44 | RADIOLOGY REPORT (SQ) ---
CT CERVICAL SPINE WITHOUT IV CONTRAST EXAM DATE: 12/06/2018 12:00 AM CDT HISTORY: Neck pain. COMPARISON: None. TECHNIQUE: CT scan of the cervical spine without IV contrast. This exam was performed according to our departmental dose-optimization program, which includes automated exposure control, adjustment of the mA and/or kV according to patient size and/or use of iterative reconstruction technique. FINDINGS: No acute cervical fracture or prevertebral soft tissue swelling is seen. There is straightening of the normal cervical lordosis, which may be due to cervical collar, muscle spasm, or patient positioning. Mild multilevel degenerative disc disease. Facet joints are intact. No high-grade spinal canal stenosis. IMPRESSION: No acute fracture or subluxation of the cervical spine.
--- NOTE | 2018-12-06 23:13 | ER Document Report ---
ED General - General Chief Complaint: Head Injury Stated Complaint: POSSIBLE SYNCOPE Time Seen by Provider: 12/06/18 20:00 Primary Care Provider: [facility] [Provider Group] - Follow up as needed Notes: Patient is a 43-year-old homeless alcoholic who presents emergency department with a hematoma to the back of his head. Patient was seen in the emergency department yesterday for alcohol intoxication. Patient states that he has been drinking. And he continues to drink. He states that he drinks both beer and hard liquor. He denies any pain at this time, but he is under the influence of alcohol. TRAVEL OUTSIDE OF THE [place] IN LAST 30 DAYS: No - Related Data Allergies/Adverse Reactions: No Known Allergies Allergy (Verified 12/06/18 18:03) Past Medical History - General Information source: Emergency Med Personnel, [facility] Records - Social History Smoking Status: Unknown if Ever Smoked Frequency of alcohol use: Heavy Family History: Reviewed & Not Pertinent Patient has suicidal ideation: No Patient has homicidal ideation: No Renal/ Medical History: Denies: Hx Peritoneal Dialysis Review of Systems - Review of Systems -: Yes ROS unobtainable due to patient's medical condition Physical Exam - Notes Notes: PHYSICAL EXAMINATION: GENERAL: Appears unkempt, well-nourished, no acute distress. HEAD: Normocephalic, hematoma noted to occipital region of head. EYES: PERRL, conjunctiva normal, all extraocular movements intact, sclera nonicteric ENT: Dry mucous membranes. NECK: Supple, no noticeable swelling, redness, rash. Normal range of motion. LUNGS: Equal breath sounds bilaterally and clear to auscultation. No wheezes rales or rhonchi. CARDIOVASCULAR: S1-S2, regular rate, regular rhythm. Radial pulses 2+, normal. ABDOMEN: Normoactive bowel sounds. Soft, nontender, no guarding, no rebound tenderness, and no masses palpated. EXTREMITIES: Normal strength and range of motion, no pitting or edema. No cyanosis. NEUROLOGICAL: Moves all extremities upon command. Strength 5/5 in all extremities. PSYCH: Withdrawn, flat affect. SKIN: Warm, dry. No rash, lesions, ulcerations noted. Normal skin turgor. Course - Re-evaluation Re-evalutation: 12/06/18 21:00 Due to the patient having labs drawn yesterday, I will not repeat labs. CT of the head and neck will be done. Patient is unable to tell me much detail with the fall. Patient is able to walk around the unit with no difficulty. 12/06/18 22:[address] of the head and neck are normal. No intracranial hemorrhage or fracture noted to roxy or cervical spine. Patient's cervical collar was discontinued. Patient is drowsy at this time. I will let him sleep his intoxication. 12/06/18 23:14 Patient is still intoxicated, but this time is able to speak with me. He is strong in all extremities. He has been walking around the emergency department with no difficulty. We will continue to watch him and once he madeline up, and EKG will be done and patient will be discharged. 12/06/18 23:50 Patient ordered appropriate at this time. EKG was normal. Follow-up precautions were given. Verbal discharge instructions were given to the patient. They verbalized understanding. They are stable for discharge. - EKG Interpretation by Me Additional EKG results interpreted by me: Sinus rhythm. Heart rate 72. OH 170 care; QRS 90; QT 408; QTc 447. No ST elevations or depressions noted. Discharge - Discharge Clinical Impression: Alcohol abuse Alcohol intoxication Qualifiers: Complication of substance-induced condition: uncomplicated Qualified Code(s): F10.920 - Alcohol use, unspecified with intoxication, uncomplicated Condition: Stable Disposition: HOME, SELF-CARE Additional Instructions: You are seen today in the emergency department for the second day in a row for your alcohol intoxication. Your CT of your head and your neck were normal. Your physical exam was normal. Please stop drinking alcohol on yourself off gradually. You can follow-up with the [facility] as needed. Referrals: [facility] [Provider Group] - Follow up as needed
--- NOTE | 2018-12-07 19:46 | EKG REPORT ---
SEVERITY:- NORMAL ECG - SINUS RHYTHM : Confirmed by: Sammi Spears MD 07-Dec-2018 19:45:58
== END 2018-12-07 01:18 | disposition home or self-care (01) ==
LOC: ER 18:02
DX: F10.120 Alcohol abuse with intoxication, uncomplicated (principal); S00.03XA Contusion of scalp, initial encounter; W19.XXXA Unspecified fall, initial encounter; R40.0 Somnolence
CPT/HCPCS: 93005; 99284; 70450; 72125; 93010; L0120

== ENCOUNTER 2019-01-24 10:08 | Emergency (ER) | payer SELFPAY ==
[2019-01-24 12:29] LABS: ABSOLUTE BASOPHILS # (AUTO) 0.1 10^3/uL (0.0-0.2); ABSOLUTE EOSINOPHILS # (AUTO) 0.1 10^3/uL (0.0-0.6); ABSOLUTE MONOCYTES (AUTO) 0.7 10^3/uL (0.1-1.4); ABSOLUTE NEUT (AUTO) 4.9 10^3/uL (1.7-8.2); BASOPHILS % (AUTO) 1.3 % (0-2); EOSINOPHILS % (AUTO) 1.2 % (0-6); HEMATOCRIT 43.3 % (37.9-51.0); LYMPHOCYTES % (AUTO) 33.6 % (13-45); MEAN CORPUSCULAR HEMOGLOBIN 31.9 pg (27.0-33.4); MEAN CORPUSCULAR HGB CONC 34.7 g/dL (32.0-36.0); MEAN CORPUSCULAR VOLUME 92 fl (80-97); MONOCYTES % (AUTO) 7.9 % (3-13); RED CELL DISTRIBUTION WIDTH 13.8 % (11.5-14.0); TOTAL CELLS COUNTED % (AUTO) 100 %; WHITE BLOOD COUNT 8.8 10^3/uL (4.0-10.5)
--- NOTE | 2019-01-24 12:30 | ER Document Report ---
ED Cardiac - General Chief Complaint: Chest Pain Stated Complaint: ETOH Time Seen by Provider: 01/24/19 12:30 TRAVEL OUTSIDE OF THE [place] IN LAST 30 DAYS: No - Related Data Allergies/Adverse Reactions: No Known Allergies Allergy (Verified 12/06/18 18:03) Past Medical History - Social History Smoking Status: Current Every Day Smoker Chew tobacco use (# tins/day): No Frequency of alcohol use: Heavy Drug Abuse: None Family History: Reviewed & Not Pertinent Patient has suicidal ideation: No Patient has homicidal ideation: No Renal/ Medical History: Denies: Hx Peritoneal Dialysis Course - Laboratory Result Diagrams: 01/24/19 12:06 01/24/19 12:06
[2019-01-24 12:41] LABS: PLATELET COUNT 195 10^3/uL (150-450)
[2019-01-24 12:48] LABS: ALBUMIN 4.5 g/dL (3.5-5.0); ALKALINE PHOSPHATASE 78 U/L (38-126); ANION GAP 14 (5-19); ASPARTATE AMINO TRANSFERASE 96 U/L (17-59); BILIRUBIN,DIRECT 0.1 mg/dL (0.0-0.4); BILIRUBIN,TOTAL 0.7 mg/dL (0.2-1.3); BLOOD UREA NITROGEN 17 mg/dL (7-20); CALCIUM 8.6 mg/dL (8.4-10.2); CARBON DIOXIDE 27 mmol/L (22-30); CHLORIDE 102 mmol/L (98-107); CREATINE KINASE 997 U/L (55-170); GLUCOSE 75 mg/dL (75-110); POTASSIUM 4.4 mmol/L (3.6-5.0); TOTAL PROTEIN 8.5 g/dL (6.3-8.2)
[2019-01-24 12:59] LABS: TROPONIN I < 0.012 ng/mL
--- NOTE | 2019-01-24 17:50 | ER Document Report ---
ED General - General Chief Complaint: Chest Pain Stated Complaint: ETOH TRAVEL OUTSIDE OF THE [place] IN LAST 30 DAYS: No - HPI Patient complains to provider of: Unable to obtain HPI as patient pulled IV out, left before I could see him - Related Data Allergies/Adverse Reactions: No Known Allergies Allergy (Verified 12/06/18 18:03) Home Medications: couldn't confirm from pt as left prior to me seeing Past Medical History - General Cannot obtain history due to: Other - Could not obtain HPI, past medical/social/family history, or ROS as pt left prior to me seeing. All above smoking or other allergy history is pulled from prior chart data. I did review vital signs and his EKG though which was obtained in triage as well as the triage note and reports from staff that he was intoxicated, and ultimately that they found the room empty with some blood and the IV pulled out. - Social History Smoking Status: Current Every Day Smoker Chew tobacco use (# tins/day): No Frequency of alcohol use: Heavy Drug Abuse: None Family History: Reviewed & Not Pertinent Patient has suicidal ideation: No Patient has homicidal ideation: No Renal/ Medical History: Denies: Hx Peritoneal Dialysis Course - Laboratory Result Diagrams: 01/24/19 12:06 01/24/19 12:06 Laboratory results interpreted by me: 01/24/19 01/24/19 12:06 12:06 AST 96 H Creatine Kinase 997 H CK-MB (CK-2) 10.70 H Total Protein 8.5 H - EKG Interpretation by Me Additional EKG results interpreted by me: 01/24/19 17:50 EKG today reviewed at time staff tell me his room was vacant and he had left his IV pulled out on the floor and he was nowhere to be found in the immediate area so I evaluated the EKG after patient left without me physically assessing him. Was compared to most recent EKG from November and there are no changes in ST segments T waves is again normal sinus rhythm no new hypertrophy or axis changes. Again today sinus normal rate 79-no ST elevations depressions all intervals including PA QRS ST QT are within normal limits no patterns abnormal morphologies of T waves. 01/24/19 17:59 Discharge - Discharge Clinical Impression: Patient left without being seen Chest pain Qualifiers: Chest pain type: unspecified Qualified Code(s): R07.9 - Chest pain, unspecified Disposition: LEFT WITHOUT BEING SEEN
--- NOTE | 2019-01-24 18:14 | EKG REPORT ---
SEVERITY:- NORMAL ECG - SINUS RHYTHM : Confirmed by: Emerson Dietz MD 24-Jan-2019 18:14:17
== END 2019-01-24 13:23 | disposition left against medical advice (07) ==
LOC: ER 10:08
DX: Z53.21 Procedure and treatment not carried out due to patient leaving prior to being seen by health care provider (principal); R07.9 Chest pain, unspecified
CPT/HCPCS: 36415; 80053; 82550; 82553; 84484; 85025; 93005; 93010; 99281

== ENCOUNTER 2019-02-17 20:11 | Emergency (ER) | payer SELFPAY ==
--- NOTE | 2019-02-17 22:38 | ER Document Report ---
ED Medical Screen (RME) - General Chief Complaint: ETOH Abuse Stated Complaint: ETOH Time Seen by Provider: 02/17/19 22:33 Mode of Arrival: Medic Information source: Patient Notes: This 43-year-old male presents emergency department via EMS for reports that he has EtOH abuse and is homeless. He wants some place to sleep it off. I woke patient up and he reports he wants help with his alcohol. Unsure how much he drank. Respiratory rate even unlabored. I have greeted and performed a rapid initial assessment of this patient. A comprehensive ED assessment and evaluation of the patient, analysis of test results and completion of the medical decision making process will be conducted by additional ED providers. Dictation of this chart was performed using voice recognition software; th erefore, there may be some unintended grammatical errors. TRAVEL OUTSIDE OF THE [place] IN LAST 30 DAYS: No - Related Data Allergies/Adverse Reactions: No Known Allergies Allergy (Verified 12/06/18 18:03) Past Medical History Renal/ Medical History: Denies: Hx Peritoneal Dialysis Physical Exam - Vital signs Vitals: Temp Pulse Resp BP Pulse Ox 97.9 F 89 18 137/87 H 94 02/17/19 22:27 02/17/19 22:27 02/17/19 22:27 02/17/19 22:27 02/17/19 22:27 Course - Vital Signs Vital signs: Temp Pulse Resp BP Pulse Ox 97.9 F 89 18 137/87 H 94 02/17/19 22:27 02/17/19 22:27 02/17/19 22:27 02/17/19 22:27 02/17/19 22:27
[2019-02-17 23:37] LABS: APPEARANCE,URINE CLEAR; BILIRUBIN,URINE NEGATIVE (NEGATIVE); COLOR,URINE YELLOW; GLUCOSE, URINE NEGATIVE (NEGATIVE); KETONES,URINE NEGATIVE (NEGATIVE); LEUKOCYTE ESTERASE,URINE NEGATIVE (NEGATIVE); NITRITE,URINE NEGATIVE (NEGATIVE); PROTEIN,URINE NEGATIVE (NEGATIVE); URINE SPECIFIC GRAVITY 1.012
[2019-02-17] MEDS ORDERED: THIAMINE HCL 100 MG, FOLIC ACID 1 MG in NORMAL SALINE 250 ML IV ONE (23:56)
[2019-02-17] MEDS ORDERED: RINGERS SOLUTION,LACTATED 1,000 ML IV ONE (23:56)
--- NOTE | 2019-02-18 | ER Document Report ---
ED General - General Mode of Arrival: Medic Information source: Patient, Emergency Med Personnel, [facility] Records Cannot obtain history due to: Intoxicated TRAVEL OUTSIDE OF THE [place] IN LAST 30 DAYS: No - HPI Onset: Just prior to arrival Quality of pain: No pain Severity: None Pain Level: Denies Associated symptoms: None - General Chief Complaint: ETOH Abuse Stated Complaint: ETOH Time Seen by Provider: 02/17/19 22:33 Notes: 43-year-old male with known alcohol abuse presents via EMS after being found sleeping outside of [facility] and intoxicated. Upon my exam patient is sleeping peacefully but awakes with verbal stimuli. States that he has been drinking alcohol all day but denies any drug use. Patient has no evidence of trauma he has no complaints at this time. Patient unable to give any useful information as he is obviously intoxicated. (JONATHAN ARZATE) - Related Data Allergies/Adverse Reactions: No Known Allergies Allergy (Verified 12/06/18 18:03) Past Medical History - General Information source: Patient - Social History Smoking Status: Unknown if Ever Smoked Frequency of alcohol use: Heavy Lives with: Homeless Family History: Reviewed & Not Pertinent Patient has suicidal ideation: No Patient has homicidal ideation: No Renal/ Medical History: Denies: Hx Peritoneal Dialysis Review of Systems - Review of Systems -: Yes ROS unobtainable due to patient's medical condition Physical Exam - Vital signs Vitals: Temp Pulse Resp BP Pulse Ox 97.9 F 89 18 137/87 H 94 02/17/19 22:27 02/17/19 22:27 02/17/19 22:27 02/17/19 22:27 02/17/19 22:27 - Notes Notes: PHYSICAL EXAMINATION: GENERAL: Obviously intoxicated HEAD: Atraumatic, normocephalic. EYES: Pupils equal round and reactive to light, extraocular movements intact, sclera anicteric, conjunctiva are normal. ENT: Nares patent, oropharynx clear without exudates. Moist mucous membranes. NECK: Normal range of motion, supple without lymphadenopathy LUNGS: Breath sounds clear to auscultation bilaterally and equal. No wheezes rales or rhonchi. HEART: Regular rate and rhythm without murmurs ABDOMEN: Soft, nontender, nondistended abdomen. No guarding, no rebound. No masses appreciated. Musculoskeletal: Normal range of motion, no pitting or edema. No cyanosis. NEUROLOGICAL: GCS 10 PSYCH: Normal mood, normal affect. SKIN: Warm, Dry, normal turgor, no rashes or lesions noted. (JONATHAN ARZATE) Course - Diagnostic Test Radiology reviewed: Image reviewed - Re-evaluation Re-evalutation: Temp Pulse Resp BP Pulse Ox 97.9 F 89 18 137/87 H 94 02/17/19 22:27 02/17/19 22:27 02/17/19 22:27 02/17/19 22:27 02/17/19 22:27 02/18/19 01:25 43-year-old male well-known to the department presents with alcohol intoxication. Patient states he is homeless. Has no complaints at this time. Patient awakes to verbal stimuli. No evidence of trauma. He is obviously intoxicated. Urine drug screen is negative. Awaiting CT of the head as I am not sure if the patient was found on the ground. Patient will be discharged home when he is able to ambulate and tolerate oral intake. 02/18/19 02:38 Dr. Mason will follow up with CT and intervene if necessary. (JONATHAN ARZATE) 02/18/19 04:43 CT scan negative for any acute intracranial process. (ALLYSSA MASON) - Vital Signs Vital signs: Temp Pulse Resp BP Pulse Ox 97.9 F 89 18 137/87 H 96 02/17/19 22:27 02/17/19 22:27 02/17/19 22:27 02/17/19 22:27 02/18/19 02:33 - Laboratory Laboratory results interpreted by me: 02/17/19 23:24 Urine Blood SMALL H Urine Urobilinogen 2.0 H Discharge - Discharge Clinical Impression: Alcohol intoxication Qualifiers: Complication of substance-induced condition: with unspecified complication Qualified Code(s): F10.929 - Alcohol use, unspecified with intoxication, unspecified Condition: Good Disposition: HOME, SELF-CARE Instructions: Acute Alcohol Intoxication ([facility]), Chronic Alcoholism ([facility]) Additional Instructions: Follow up with your [id number] hours for further care or return to the ED IMMEDIATELY if symptoms worsen or you have any concerns. If you cannot afford to follow up with your primary care physician a list of low cost clinics have been provided at the end of your discharge papers as well. Most prescribed medications have multiple side effects. The safest thing to do is when filling your prescription speak to your pharmacist regarding possible interactions with your normal home medications and over the counter medications such as Ibuprofen, Tylenol, Benadryl. If you experience any symptoms that cause you discomfort or concern you should discontinue the medication immediately and return to the emergency room or call your primary care physician. Forms: Elevated Blood Pressure
[2019-02-18 00:10] LABS: URINE AMPHETAMINES SCREEN NEGATIVE; URINE BARBITURATES SCREEN NEGATIVE; URINE BENZODIAZEPINES SCREEN NEGATIVE; URINE COCAINE SCREEN NEGATIVE; URINE MARIJUANA (THC) SCREEN NEGATIVE; URINE METHADONE SCREEN NEGATIVE; URINE PHENCYCLIDINE SCREEN NEGATIVE
[2019-02-18] MEDS ORDERED: FOLIC ACID INJ 5 MG/1 ML 10 ML VIAL ONE (01:39)
[2019-02-18] MEDS ORDERED: THIAMINE HCL INJ 200 MG/2 ML VIAL ONE (01:40)
[2019-02-18] MEDS ORDERED: ONDANSETRON HCL INJ/PF 4 MG/2 ML SDV IV ONE (01:46)
--- NOTE | 2019-02-18 03:22 | RADIOLOGY REPORT (SQ) ---
CLINICAL HISTORY: found down COMPARISON: 12/06/2018. TECHNIQUE: CT HEAD WITHOUT IV CONTRAST on 02/18/2019 12:00 AM [employer] This exam was performed according to our departmental dose-optimization program, which includes automated exposure control, adjustment of the mA and/or kV according to patient size and/or use of iterative reconstruction technique. FINDINGS: There is no acute hemorrhage, mass effect or midline shift. Lambert-white differentiation is preserved. There is no hydrocephalus. There is no significant volume loss for age. The calvarium is intact. Orbits and globes are unremarkable. The paranasal sinuses are clear. Mastoid air cells are clear. IMPRESSION: No acute intracranial findings.
[2019-02-18] MEDS ORDERED: PROMETHAZINE HCL INJ 50 MG/1 ML VIAL ONE (04:14)
[2019-02-18 06:42] VITALS: BP 135/79
== END 2019-02-18 06:41 | disposition home or self-care (01) ==
LOC: ER 20:11
DX: F10.129 Alcohol abuse with intoxication, unspecified (principal); Z59.0 Homelessness
CPT/HCPCS: 99284; 96375; 96365; 81001; 80307; 70450; J3490; J3411; J2405; J7050; J7120

== ENCOUNTER 2019-02-18 12:42 | Emergency (ER) | payer SELFPAY ==
[2019-02-18] MEDS ORDERED: ASPIRIN 81 MG TABLET, CHEWABLE PO ONE (13:02)
--- NOTE | 2019-02-18 13:04 | ER Document Report ---
ED Medical Screen (RME) - General Chief Complaint: Chest Pain Stated Complaint: CHEST PAIN Time Seen by Provider: 02/18/19 13:01 Mode of Arrival: Ambulatory Information source: Patient Notes: Patient presents complaining of chest pain that started yesterday has been off and on. Patient does complain of shortness of breath. No nausea or vomiting. Patient does report cough for several days with white sputum. Patient denies any significant medical history. I have greeted and performed a rapid initial assessment of this patient. A comprehensive ED assessment and evaluation of the patient, analysis of test results and completion of the medical decision making process will be conducted by additional ED providers. TRAVEL OUTSIDE OF THE [place] IN LAST 30 DAYS: No - Related Data Allergies/Adverse Reactions: No Known Allergies Allergy (Verified 12/06/18 18:03) Past Medical History Renal/ Medical History: Denies: Hx Peritoneal Dialysis Physical Exam - Cardiovascular Rhythm: Regular Heart sounds: S1 appreciated, S2 appreciated
[2019-02-18 13:53] LABS: ABSOLUTE BASOPHILS # (AUTO) 0.1 10^3/uL (0.0-0.2); ABSOLUTE LYMPHOCYTES (AUTO) 2.5 10^3/uL (0.5-4.7); ABSOLUTE MONOCYTES (AUTO) 0.3 10^3/uL (0.1-1.4); ABSOLUTE NEUT (AUTO) 2.3 10^3/uL (1.7-8.2); BASOPHILS % (AUTO) 1.5 % (0-2); EOSINOPHILS % (AUTO) 0.8 % (0-6); HEMATOCRIT 39.8 % (37.9-51.0); LYMPHOCYTES % (AUTO) 48.4 % (13-45); MEAN CORPUSCULAR HEMOGLOBIN 33.3 pg (27.0-33.4); MEAN CORPUSCULAR HGB CONC 35.3 g/dL (32.0-36.0); MEAN CORPUSCULAR VOLUME 95 fl (80-97); MONOCYTES % (AUTO) 6.1 % (3-13); PLATELET COUNT 109 10^3/uL (150-450); RED BLOOD COUNT 4.21 10^6/uL (4.35-5.55); SEGMENTED NEUTROPHILS % (AUTO) 43.2 % (42-78); TOTAL CELLS COUNTED % (AUTO) 100 %; WHITE BLOOD COUNT 5.2 10^3/uL (4.0-10.5)
--- NOTE | 2019-02-18 14:07 | RADIOLOGY REPORT (SQ) ---
EXAM DESCRIPTION: CHEST 2 VIEWS COMPLETED DATE/TIME: 02/18/2019 1:50 pm REASON FOR STUDY: cp COMPARISON: 04/16/2018 EXAM PARAMETERS: NUMBER OF VIEWS: two views TECHNIQUE: Digital Frontal and Lateral radiographic views of the chest acquired. RADIATION DOSE: NA LIMITATIONS: none FINDINGS: LUNGS AND PLEURA: No opacities, masses or pneumothorax. No pleural effusion. MEDIASTINUM AND HILAR STRUCTURES: No masses or contour abnormalities. HEART AND VASCULAR STRUCTURES: Heart normal size. No evidence for failure. BONES: No acute findings. HARDWARE: None in the chest. OTHER: No other significant finding. IMPRESSION: NO ACUTE RADIOGRAPHIC FINDING IN THE CHEST. TECHNICAL DOCUMENTATION: JOB ID: [id number] [employer]- All Rights Reserved Reading location - IP/workstation name: [email or web address]
[2019-02-18 14:39] LABS: ALKALINE PHOSPHATASE 141 U/L (38-126); ANION GAP 14 (5-19); ASPARTATE AMINO TRANSFERASE 556 U/L (17-59); BILIRUBIN,DIRECT 0.5 mg/dL (0.0-0.4); BILIRUBIN,TOTAL 1.5 mg/dL (0.2-1.3); BLOOD UREA NITROGEN 16 mg/dL (7-20); CALCIUM 8.5 mg/dL (8.4-10.2); CARBON DIOXIDE 25 mmol/L (22-30); CHLORIDE 105 mmol/L (98-107); GLUCOSE 89 mg/dL (75-110); POTASSIUM 4.3 mmol/L (3.6-5.0); TOTAL PROTEIN 7.9 g/dL (6.3-8.2)
--- NOTE | 2019-02-18 15:17 | ER Document Report ---
ED General - General Chief Complaint: Chest Pain Stated Complaint: CHEST PAIN Time Seen by Provider: 02/18/19 13:01 Mode of Arrival: Ambulatory Information source: Patient Notes: Patient presents with left-sided chest pain. He states he was very brief and sharp. Nothing made it better or worse. It did not radiate. He states he had a mild cough is been nonproductive. He states otherwise just has some general malaise. After being in the room for approximate 30 minutes he did admit to the nurse that he lied about his symptoms and that he just wants a warm place to sleep. Patient has had no nausea vomiting or diarrhea. His pain was very brief and intermittent. TRAVEL OUTSIDE OF THE [place] IN LAST 30 DAYS: No - Related Data Allergies/Adverse Reactions: No Known Allergies Allergy (Verified 12/06/18 18:03) Past Medical History - General Information source: Patient - Social History Smoking Status: Current Every Day Smoker Chew tobacco use (# tins/day): No Frequency of alcohol use: Occasional Drug Abuse: None Family History: Reviewed & Not Pertinent Patient has suicidal ideation: No Patient has homicidal ideation: No Renal/ Medical History: Denies: Hx Peritoneal Dialysis Review of Systems - Review of Systems Constitutional: Malaise, Weakness. denies: Chills, Fever Cardiovascular: Chest pain. denies: Palpitations Gastrointestinal: denies: Abdomen distended, Abdominal pain, Diarrhea -: Yes All other systems reviewed and negative Physical Exam - Vital signs Vitals: Temp Pulse Resp BP Pulse Ox 98.1 F 93 18 146/84 H 98 02/18/19 13:03 02/18/19 13:03 02/18/19 13:03 02/18/19 13:03 02/18/19 13:03 Interpretation: Normal - General General appearance: Appears well, Alert - HEENT Head: Normocephalic, Atraumatic Eyes: Normal Pupils: PERRL - Respiratory Respiratory status: No respiratory distress Chest status: Nontender Breath sounds: Normal Chest palpation: Normal - Cardiovascular Rhythm: Regular Heart sounds: Normal auscultation Murmur: No - Abdominal Inspection: Normal Distension: No distension Bowel sounds: Normal Tenderness: Nontender Organomegaly: No organomegaly - Back Back: Normal, Nontender - Extremities General upper extremity: Normal inspection, Nontender, Normal color, Normal ROM, Normal temperature General lower extremity: Normal inspection, Nontender, Normal color, Normal ROM, Normal temperature, Normal weight bearing. No: Stepan's sign - Neurological Neuro grossly intact: Yes Cognition: Normal Orientation: AAOx4 [place] Coma Scale Eye Opening: Spontaneous [place] Coma Scale Verbal: Oriented [place] Coma Scale Motor: Obeys Commands [place] Coma Scale Total: 15 Speech: Normal Motor strength normal: LUE, RUE, LLE, RLE Sensory: Normal - Psychological Associated symptoms: Normal affect, Normal mood - Skin Skin Temperature: Warm Skin Moisture: Dry Skin Color: Normal Course - Re-evaluation Re-evalutation: 02/18/19 15:14 Patient presents with chest pain that was very brief. However after being here patient admitted that he never really had chest pain that he does want a warm place to sleep. Work-up was unremarkable. I think patient is safe for discharge and for outpatient follow-up. I did have social work see the patient to try to arrange for housing for the patient. However due to patient not having an ID and have any previous coronal record she was unable to secure a place for the patient to stay this evening. - Vital Signs Vital signs: Temp Pulse Resp BP Pulse Ox 98.1 F 93 18 146/84 H 98 02/18/19 13:03 02/18/19 13:03 02/18/19 13:03 02/18/19 13:03 02/18/19 14:06 - Laboratory Result Diagrams: 02/18/19 13:40 02/18/19 13:40 Laboratory results interpreted by me: 02/18/19 02/18/19 13:40 13:40 RBC 4.21 L RDW 15.0 H Plt Count 109 L Lymph % (Auto) 48.4 H Total Bilirubin 1.5 H Direct Bilirubin 0.5 H AST 556 H Alkaline Phosphatase 141 H - Diagnostic Test Radiology reviewed: Image reviewed, Reports reviewed - EKG Interpretation by Me EKG shows normal: Sinus rhythm Rate: Normal - 91 Rhythm: NSR [place]/QRS: No: Right axis deviation, Left axis deviation Discharge - Discharge Clinical Impression: Chest pain Qualifiers: Chest pain type: unspecified Qualified Code(s): R07.9 - Chest pain, unspecified Condition: Stable Disposition: HOME, SELF-CARE Instructions: Chest Pain of Unclear Cause ([facility])
[2019-02-18 15:28] VITALS: BP 130/76
--- NOTE | 2019-02-18 18:34 | EKG REPORT ---
SEVERITY:- ABNORMAL ECG - SINUS RHYTHM NONSPECIFIC T ABNORMALITIES, LATERAL LEADS : Confirmed by: Vanessa Jacobs 18-Feb-2019 18:33:27
== END 2019-02-18 15:28 | disposition home or self-care (01) ==
LOC: ER 12:42
DX: R07.9 Chest pain, unspecified (principal); R53.1 Weakness; R53.81 Other malaise; F17.200 Nicotine dependence, unspecified, uncomplicated
CPT/HCPCS: 36415; 71046; 80053; 83690; 84484; 85025; 93005; 93010; 99285

== ENCOUNTER 2019-02-18 22:06 | Emergency (ER) | payer SELFPAY ==
--- NOTE | 2019-02-18 23:39 | RADIOLOGY REPORT (SQ) ---
EXAM DESCRIPTION: XR CHEST 2 VIEWS COMPLETED DATE/TME: 02/18/2019 00:00 CLINICAL HISTORY: 43 years, Male, chest pain COMPARISON: 02/18/2019 chest x-ray at 1:47 PM NUMBER OF VIEWS: 2 TECHNIQUE: 2 views of the chest LIMITATIONS: None. FINDINGS: Heart size is normal. Lungs are clear. No pneumothorax IMPRESSION: Negative chest copyright 2010 [employer]- All Rights Reserved
[2019-02-19 01:14] LABS: ABSOLUTE BASOPHILS # (AUTO) 0.1 10^3/uL (0.0-0.2); ABSOLUTE EOSINOPHILS # (AUTO) 0.1 10^3/uL (0.0-0.6); ABSOLUTE LYMPHOCYTES (AUTO) 2.8 10^3/uL (0.5-4.7); ABSOLUTE MONOCYTES (AUTO) 0.3 10^3/uL (0.1-1.4); ABSOLUTE NEUT (AUTO) 1.8 10^3/uL (1.7-8.2); BASOPHILS % (AUTO) 1.3 % (0-2); EOSINOPHILS % (AUTO) 1.2 % (0-6); HEMATOCRIT 36.5 % (37.9-51.0); HEMOGLOBIN 13.4 g/dL (13.5-17.0); LYMPHOCYTES % (AUTO) 55.5 % (13-45); MEAN CORPUSCULAR HEMOGLOBIN 34.9 pg (27.0-33.4); MEAN CORPUSCULAR HGB CONC 36.8 g/dL (32.0-36.0); MEAN CORPUSCULAR VOLUME 95 fl (80-97); MONOCYTES % (AUTO) 6.4 % (3-13); RED BLOOD COUNT 3.85 10^6/uL (4.35-5.55); RED CELL DISTRIBUTION WIDTH 14.7 % (11.5-14.0); SEGMENTED NEUTROPHILS % (AUTO) 35.6 % (42-78); TOTAL CELLS COUNTED % (AUTO) 100 %
[2019-02-19 01:29] LABS: ALBUMIN 3.6 g/dL (3.5-5.0); ALKALINE PHOSPHATASE 170 U/L (38-126); ANION GAP 9 (5-19); ASPARTATE AMINO TRANSFERASE 431 U/L (17-59); BILIRUBIN,DIRECT 0.4 mg/dL (0.0-0.4); BLOOD UREA NITROGEN 16 mg/dL (7-20); CALCIUM 8.5 mg/dL (8.4-10.2); CARBON DIOXIDE 27 mmol/L (22-30); CHLORIDE 107 mmol/L (98-107); GLUCOSE 89 mg/dL (75-110); POTASSIUM 4.2 mmol/L (3.6-5.0); TOTAL PROTEIN 7.1 g/dL (6.3-8.2)
[2019-02-19 01:34] LABS: PLATELET COUNT 99 10^3/uL (150-450)
[2019-02-19 01:37] LABS: CREATINE KINASE 2537 U/L (55-170)
[2019-02-19 01:45] LABS: TROPONIN I < 0.012 ng/mL
[2019-02-19] MEDS ORDERED: NORMAL SALINE 1000 ML 1,000 ML IV ONE ×2 (02:32→11:16)
[2019-02-19 04:49] LABS: TROPONIN I < 0.012 ng/mL
--- NOTE | 2019-02-19 06:08 | ER Document Report ---
ED General - General Chief Complaint: Chest Pain Stated Complaint: CHEST PAIN Time Seen by Provider: 02/19/19 02:27 Notes: 43-year-old male presents emergency department complaining of chest pain that has been going on intermittently for the past 2 nights that he states is intermittent and throbbing in nature. States it worsens with alcohol intake. Denies any vomiting or diarrhea, denies any fevers or chills, denies any shortness of breath. Patient was seen here earlier today for the same complaint, states that is unchanged since earlier today. When I discussed with him that earlier today he told the nurses and the nurses documented in the chart that he was lying and he was not actually having any chest pain he just wanted a warm place to stay patient stated that that was actually what was happening today to and then proceeded to deny any symptoms including chest pain or worsening with vomiting. States that he would still like help with alcohol rehab. Denies suicidal homicidal ideation. Denies symptoms of withdrawal. TRAVEL OUTSIDE OF THE [place] IN LAST 30 DAYS: No - Related Data Allergies/Adverse Reactions: No Known Allergies Allergy (Verified 12/06/18 18:03) Past Medical History - General Information source: Patient, [facility] - Social History Smoking Status: Current Every Day Smoker Frequency of alcohol use: Heavy Drug Abuse: None Family History: Reviewed & Not Pertinent Patient has suicidal ideation: No Patient has homicidal ideation: No Renal/ Medical History: Denies: Hx Peritoneal Dialysis Review of Systems - Review of Systems Constitutional: No symptoms reported Cardiovascular: See HPI Respiratory: No symptoms reported Gastrointestinal: See HPI -: Yes All other systems reviewed and negative Physical Exam - Vital signs Vitals: Temp Pulse Resp BP Pulse Ox 98.2 F 94 18 133/71 H 95 02/18/19 22:25 02/18/19 22:25 02/18/19 22:25 02/18/19 22:25 02/18/19 22:25 Interpretation: Normal - Notes Notes: GENERAL: Alert, interacts well. No acute distress. Smells of alcohol. HEAD: Normocephalic, atraumatic EYES: Pupils equal, round and reactive to light, extraocular movements intact. ENT: Oral mucosa moist, tongue midline. NECK: Full range of motion, supple, trachea midline. LUNGS: Clear to auscultation bilaterally, no wheezes, rales or rhonchi, no re spiratory distress. HEART: Regular rate and rhythm, no murmurs, gallops, rubs. ABDOMEN: Soft, nontender, nondistended, bowel sounds present in all 4 quadrants. EXTREMITIES: Moves all 4 extremities spontaneously, no edema, radial and dorsalis pedis pulses 2/4 bilaterally. No cyanosis. NEUROLOGICAL: Alert and oriented x3, normal speech, biceps and patellar DTRs 2+ bilaterally. PSYCH: Normal mood, normal affect. SKIN: Warm, initially diaphoretic, wearing 3 coats and a hat and underneath a bl anket, after being assured that we would allow him to sleep here for a while while we checked laboratory studies he agreed to take off several layers, vital signs were normal when we checked them, afebrile, diaphoresis has stopped since we removed several of his layers of clothing. Course - Re-evaluation Re-evalutation: 02/19/19 06:11 CBC shows mild anemia with hemoglobin of 13.4 not significantly changed since yesterday, platelets are low at 99 again no significant change since yesterday although this is a general downtrend over the past 2 years, CMP shows elevated AST at 431 although this is improved since yesterday when it was 556, alkaline phosphatase slightly worsened at 170, yesterday it was 141, today his CK was hesham vated at 2537, after hydration and observation it decreased to 2280, lipase was mildly elevated at 334.8, it was normal yesterday, troponin negative x2. Chest x-ray shows no acute process. Patient has had a now had 4 sets of cardiac enzymes spread over the past 24 to 48 hours. I do not think that his chest pain is coming from an acute cardiac etiology, patient also stated today and yesterday that he was lying about having chest pain at all. Patient's CK is elevated but it is improving, he has no signs of renal failure. [facility] Patient is neurologically intact, clinically sober. Patient is referred to [facility] for further investigation and alcohol rehab. Patient should be below 200 and therefore eligible for referral to [facility] no later than 8 AM. There is no indication for keeping him here any longer. Patient will be discharged home and asked to follow-up with [facility] as an outpatient. Patient is medically cleared. 02/19/19 06:18 [facility] confirms that they will have a bed available for him today. Patient will be allowed to stay here until 8 AM at which point he will be sent to [facility]. - Vital Signs Vital signs: Temp Pulse Resp BP Pulse Ox 98.5 F 91 16 116/73 95 02/19/19 03:16 02/19/19 03:16 02/19/19 03:16 02/19/19 03:16 02/19/19 03:16 - Laboratory Result Diagrams: 02/19/19 00:50 02/19/19 00:50 Laboratory results interpreted by me: 02/19/19 02/19/19 02/19/19 00:50 00:50 00:50 RBC 3.85 L Hgb 13.4 L Hct 36.5 L MCH 34.9 H MCHC 36.8 H RDW 14.7 H Plt Count 99 L Lymph % (Auto) 55.5 H Seg Neutrophils % 35.6 L AST 431 H Alkaline Phosphatase 170 H Creatine Kinase 2537 H CK-MB (CK-2) 23.30 H Lipase Serum Alcohol 02/19/19 02/19/19 02/19/19 00:50 00:50 03:56 RBC Hgb Hct MCH MCHC RDW Plt Count Lymph % (Auto) Seg Neutrophils % AST Alkaline Phosphatase Creatine Kinase CK-MB (CK-2) 17.80 H Lipase 334.8 H Serum Alcohol 363 H* 02/19/19 03:56 RBC Hgb Hct MCH MCHC RDW Plt Count Lymph % (Auto) Seg Neutrophils % AST Alkaline Phosphatase Creatine Kinase 2280 H CK-MB (CK-2) Lipase Serum Alcohol - EKG Interpretation by Me Additional EKG results interpreted by me: 02/19/19 06:13 EKG shows sinus rhythm at a rate of 85, normal axis, normal intervals, no ST segment elevations or depressions, no T wave inversions per my interpretation. Discharge - Discharge Clinical Impression: Alcohol abuse, Elevated CK, Thrombocytopenia concurrent with and due to alcoholism Chest pain Qualifiers: Chest pain type: unspecified Qualified Code(s): R07.9 - Chest pain, unspecified Condition: Stable Disposition: HOME, SELF-CARE Additional Instructions: Today's the second day that you have come to the emergency department and reported that you had chest pain but later told us that you are only saying this in order to have a warm place to sleep. We are happy to help you in the emergen cy department but we need you to be honest with us and tell us what is actually going on. If in the future you are looking for help with quitting drinking please be clear with us at the very beginning of your visit. Today your blood work did show some signs of damage from drinking alcohol. It is very important that you seek further help to quit drinking alcohol. Please go directly to the [place] crisis center for further evaluation. You are medically cleared at this point.
[2019-02-19 06:39] VITALS: BP 113/70
--- NOTE | 2019-02-19 12:32 | ER Document Report ---
Doctor's Note Notes: 02/19/19 12:31 Repeat alcohol at oh 7:30 AM was 247. [facility] [place] [facility] would not take the patient without the alcohol being documented at less than 200. A learned of this approximately 11 AM this morning, as I thought the patient would have been taken to [place] [facility] already. I saw the patient had received 1 L of IV fluid, the patient's CKs were trending down but were quite high, so I ordered an additional liter of normal saline, and ordered a new drawl CK and alcohol at 1130. When I went to check on the results, I found the patient had been discharged, and when asking about it learned that the patient had eloped with his IV intact, and the police department had been in here already to take the information are currently searching for him.
--- NOTE | 2019-02-19 23:41 | EKG REPORT ---
SEVERITY:- NORMAL ECG - SINUS RHYTHM : Confirmed by: Vanessa Jacobs 19-Feb-2019 23:40:34
== END 2019-02-19 11:15 | disposition home or self-care (01) ==
LOC: ER 22:06
DX: F10.10 Alcohol abuse, uncomplicated (principal); D69.6 Thrombocytopenia, unspecified; R79.89 Other specified abnormal findings of blood chemistry; R07.9 Chest pain, unspecified; F17.200 Nicotine dependence, unspecified, uncomplicated
CPT/HCPCS: 93005; 99284; 96360; 36415; 82553; 80307; 82550; 83690; 87070; 84484; 71046; 93010; J7030

== ENCOUNTER 2019-02-19 20:46 | Emergency (ER) | payer SELFPAY ==
[2019-02-19] MEDS ORDERED: NORMAL SALINE 1000 ML 1,000 ML IV ONE (22:03)
[2019-02-19 22:34] LABS: ABSOLUTE BASOPHILS # (AUTO) 0.1 10^3/uL (0.0-0.2); ABSOLUTE EOSINOPHILS # (AUTO) 0.1 10^3/uL (0.0-0.6); ABSOLUTE LYMPHOCYTES (AUTO) 2.4 10^3/uL (0.5-4.7); ABSOLUTE MONOCYTES (AUTO) 0.3 10^3/uL (0.1-1.4); ABSOLUTE NEUT (AUTO) 1.7 10^3/uL (1.7-8.2); BASOPHILS % (AUTO) 1.2 % (0-2); EOSINOPHILS % (AUTO) 1.6 % (0-6); HEMATOCRIT 33.2 % (37.9-51.0); HEMOGLOBIN 11.8 g/dL (13.5-17.0); LYMPHOCYTES % (AUTO) 52.7 % (13-45); MEAN CORPUSCULAR HEMOGLOBIN 33.7 pg (27.0-33.4); MEAN CORPUSCULAR HGB CONC 35.6 g/dL (32.0-36.0); MEAN CORPUSCULAR VOLUME 95 fl (80-97); MONOCYTES % (AUTO) 7.1 % (3-13); RED CELL DISTRIBUTION WIDTH 14.5 % (11.5-14.0); SEGMENTED NEUTROPHILS % (AUTO) 37.4 % (42-78); TOTAL CELLS COUNTED % (AUTO) 100 %; WHITE BLOOD COUNT 4.5 10^3/uL (4.0-10.5)
--- NOTE | 2019-02-19 22:51 | RADIOLOGY REPORT (SQ) ---
EXAM DESCRIPTION: XR CHEST 1 VIEW COMPLETED DATE/TME: 02/19/2019 22:03 CLINICAL HISTORY: 43 years Male dyspnea COMPARISON: 02/18/2019 FINDINGS: The cardiomediastinal silhouette appears unremarkable. No consolidating infiltrates or pleural effusions. No pneumothorax. IMPRESSION: No acute abnormality is identified.
[2019-02-19 22:53] LABS: ALBUMIN 3.4 g/dL (3.5-5.0); ALKALINE PHOSPHATASE 173 U/L (38-126); ANION GAP 9 (5-19); ASPARTATE AMINO TRANSFERASE 376 U/L (17-59); BILIRUBIN,DIRECT 0.4 mg/dL (0.0-0.4); BILIRUBIN,TOTAL 0.8 mg/dL (0.2-1.3); BLOOD UREA NITROGEN 17 mg/dL (7-20); CALCIUM 8.7 mg/dL (8.4-10.2); CARBON DIOXIDE 30 mmol/L (22-30); CHLORIDE 105 mmol/L (98-107); GLUCOSE 107 mg/dL (75-110); POTASSIUM 4.1 mmol/L (3.6-5.0); TOTAL PROTEIN 6.7 g/dL (6.3-8.2)
[2019-02-19 22:59] LABS: PLATELET COUNT 79 10^3/uL (150-450)
[2019-02-19 23:07] LABS: ALCOHOL 377 mg/dL (NONE DETECTED)
--- NOTE | 2019-02-20 01:27 | ER Document Report ---
ED General - General Chief Complaint: Shortness Of Breath Stated Complaint: DIFFICULTY BREATHING,BODY PAIN Time Seen by Provider: 02/19/19 21:16 TRAVEL OUTSIDE OF THE [place] IN LAST 30 DAYS: No - HPI Notes: Patient is a 43-year-old male who presents emergency department for evaluation. Initially at triage she stated that he was short of breath. He really would not talk to me much about that. I asked him if he was short of breath and he stated he was not. I asked the patient repeatedly why he was here. Eventually, begrudgingly, he stated, because I have no place else to go." He denies any pain of any sort. He admits he has been drinking alcohol heavily. He denies use of any other illicit drugs. He states he has no other family or friends to call. He states he is not suicidal, nor is he homicidal. He denies any visual or auditory hallucinations. No recent falls. - Related Data Allergies/Adverse Reactions: No Known Allergies Allergy (Verified 02/19/19 21:10) Past Medical History - General Information source: Patient - Social History Smoking Status: Current Every Day Smoker Chew tobacco use (# tins/day): No Frequency of alcohol use: Heavy Drug Abuse: None Family History: Reviewed & Not Pertinent Patient has suicidal ideation: No Patient has homicidal ideation: No Pulmonary Medical History: Reports: Hx Asthma - as a child Renal/ Medical History: Denies: Hx Peritoneal Dialysis Review of Systems - Review of Systems Constitutional: No symptoms reported EENT: No symptoms reported Cardiovascular: No symptoms reported Respiratory: See HPI Gastrointestinal: No symptoms reported Genitourinary: No symptoms reported Musculoskeletal: No symptoms reported Skin: No symptoms reported Neurological/Psychological: No symptoms reported Physical Exam - Vital signs Vitals: Resp 23 H 02/19/19 20:57 - Notes Notes: Is a 43-year-old male, who smells strongly of alcohol, lying in bed in no acute distress. Vital signs reviewed, please refer to chart. Head is normocephalic, atraumatic. Pupils equal round, reactive to light. Neck is supple without meningismus. Heart is regular rate and rhythm. Lungs are clear to auscultation bilaterally. Abdomen is soft, nontender, normoactive bowel sounds throughout. Extremities without cyanosis, clubbing. Posterior calves are nontender. Peripheral pulses are equal. Skin is warm and dry. Patient is drowsy but arouses to verbal stimuli. He moves all 4 extremity spontaneously. He follows commands without difficulty, no facial asymmetry. Course - Re-evaluation Re-evalutation: 02/20/19 01:29 Patient presents emergency department for evaluation. He initially complained of dyspnea, but I suspect this was all secondary to alcohol intoxication and secondary gain as he does not have any place to go. His blood alcohol was found to be markedly elevated. Otherwise, the remainder of his labs are improved. His AST is elevated, but is been more elevated in the past. He remained stable throughout the course of his stay. Patient will have high blood alcohol level around the normal limit at about 7 AM this morning. He is to be discharged at that time. - Vital Signs Vital signs: Temp Pulse Resp BP Pulse Ox 98.3 F 12 108/72 93 02/20/19 00:47 02/20/19 00:46 02/20/19 00:46 02/20/19 00:46 - Laboratory Result Diagrams: 02/19/19 22:17 02/19/19 22:17 Laboratory results interpreted by me: 02/19/19 02/19/19 22:17 22:17 RBC 3.50 L Hgb 11.8 L Hct 33.2 L MCH 33.7 H RDW 14.5 H Plt Count 79 L Lymph % (Auto) 52.7 H Seg Neutrophils % 37.4 L AST 376 H Alkaline Phosphatase 173 H Albumin 3.4 L Serum Alcohol 377 H* - Diagnostic Test Radiology reviewed: Image reviewed, Reports reviewed Radiology results interpreted by me: 02/20/19 01:29 Chest X-Ray 02/19/19 22:03 IMPRESSION: No acute abnormality is identified. Discharge - Discharge Clinical Impression: Alcohol abuse Alcohol intoxication Qualifiers: Complication of substance-induced condition: uncomplicated Qualified Code(s): F10.920 - Alcohol use, unspecified with intoxication, uncomplicated Dyspnea Qualifiers: Dyspnea type: shortness of breath Qualified Code(s): R06.02 - Shortness of breath; R06.00 - Dyspnea, unspecified; R06.01 - Orthopnea Condition: Stable Disposition: HOME, SELF-CARE Instructions: Dyspnea, Nonspecific ([facility]), Chronic Alcoholism ([facility]), Acute Alcohol Intoxication ([facility]) Additional Instructions: No clear cause was found for your shortness of breath tonight. Please try to abstain from drinking alcohol. Follow-up with primary care next week. Return to the ED with worsening or new concerning symptoms of any sort.
[2019-02-20 07:19] VITALS: BP 112/81
== END 2019-02-20 07:07 | disposition home or self-care (01) ==
LOC: ER 20:46
DX: F10.120 Alcohol abuse with intoxication, uncomplicated (principal); R06.02 Shortness of breath; R06.01 Orthopnea; F17.200 Nicotine dependence, unspecified, uncomplicated; R74.0 Nonspecific elevation of levels of transaminase and lactic acid dehydrogenase [LDH]
CPT/HCPCS: 99285; 96360; 36415; 80307; 87070; 71045; J7030

== ENCOUNTER 2019-02-20 18:45 | Emergency (ER) | payer SELFPAY ==
--- NOTE | 2019-02-20 19:26 | ER Document Report ---
ED Medical Screen (RME) - General Chief Complaint: Cough Stated Complaint: CONJECTION/COUGH/PAIN Time Seen by Provider: 02/20/19 19:22 Mode of Arrival: Wheelchair Information source: Patient Notes: 43-year-old male presented to ED for complaint of total body hurt for 3 days he states he is also also been coughing for 3 days. States he smoked smokes pack a day and has had 324 ounce beer today. He states he walked here today and he is homeless. He denies any heart or lung problems. Patient is very sleepy hard to keep awake to answer questions. I have greeted and performed a rapid initial assessment of this patient. A comprehensive ED assessment and evaluation of the patient, analysis of test results and completion of medical decision making process will be conducted by an additional ED providers. TRAVEL OUTSIDE OF THE [place] IN LAST 30 DAYS: No - Related Data Allergies/Adverse Reactions: No Known Allergies Allergy (Verified 02/19/19 21:10) Past Medical History - Past Medical History Cardiac Medical History: Reports: None Pulmonary Medical History: Reports: Hx Asthma - as a child EENT Medical History: Reports: None Neurological Medical History: Reports: None Endocrine Medical History: Reports: None Renal/ Medical History: Reports: None. Denies: Hx Peritoneal Dialysis Malignancy Medical History: Reports None GI Medical History: Reports: None Musculoskeltal Medical History: Reports None Skin Medical History: Reports None Psychiatric Medical History: Reports: None Traumatic Medical History: Reports: None Infectious Medical History: Reports: None Surgical Hx: Negative Past Surgical History: Reports: None Physical Exam - Vital signs Vitals: Temp Pulse BP Pulse Ox 98.3 F 94 123/79 98 02/20/19 18:51 02/20/19 18:51 02/20/19 18:51 02/20/19 18:51 Course - Vital Signs Vital signs: Temp Pulse Resp BP Pulse Ox 98.3 F 94 123/79 98 02/20/19 18:51 02/20/19 18:51 02/20/19 18:51 02/20/19 18:51
[2019-02-20 19:57] LABS: ABSOLUTE BASOPHILS # (AUTO) 0.1 10^3/uL (0.0-0.2); ABSOLUTE EOSINOPHILS # (AUTO) 0.1 10^3/uL (0.0-0.6); ABSOLUTE LYMPHOCYTES (AUTO) 2.4 10^3/uL (0.5-4.7); ABSOLUTE MONOCYTES (AUTO) 0.4 10^3/uL (0.1-1.4); ABSOLUTE NEUT (AUTO) 2.3 10^3/uL (1.7-8.2); BASOPHILS % (AUTO) 1.4 % (0-2); EOSINOPHILS % (AUTO) 1.8 % (0-6); HEMATOCRIT 37.2 % (37.9-51.0); HEMOGLOBIN 13.1 g/dL (13.5-17.0); LYMPHOCYTES % (AUTO) 46.4 % (13-45); MEAN CORPUSCULAR HEMOGLOBIN 33.2 pg (27.0-33.4); MEAN CORPUSCULAR HGB CONC 35.2 g/dL (32.0-36.0); MEAN CORPUSCULAR VOLUME 95 fl (80-97); MONOCYTES % (AUTO) 6.7 % (3-13); RED BLOOD COUNT 3.93 10^6/uL (4.35-5.55); RED CELL DISTRIBUTION WIDTH 14.9 % (11.5-14.0); SEGMENTED NEUTROPHILS % (AUTO) 43.7 % (42-78); TOTAL CELLS COUNTED % (AUTO) 100 %; WHITE BLOOD COUNT 5.2 10^3/uL (4.0-10.5)
[2019-02-20 20:08] LABS: ALBUMIN 3.9 g/dL (3.5-5.0); ALKALINE PHOSPHATASE 164 U/L (38-126); ANION GAP 12 (5-19); ASPARTATE AMINO TRANSFERASE 362 U/L (17-59); BILIRUBIN,DIRECT 0.4 mg/dL (0.0-0.4); BILIRUBIN,TOTAL 1.1 mg/dL (0.2-1.3); BLOOD UREA NITROGEN 15 mg/dL (7-20); CALCIUM 8.8 mg/dL (8.4-10.2); CARBON DIOXIDE 27 mmol/L (22-30); CHLORIDE 105 mmol/L (98-107); GLUCOSE 137 mg/dL (75-110); POTASSIUM 3.7 mmol/L (3.6-5.0); TOTAL PROTEIN 7.6 g/dL (6.3-8.2)
[2019-02-20 20:18] LABS: PLATELET COUNT 85 10^3/uL (150-450)
[2019-02-20 22:04] LABS: APPEARANCE,URINE CLEAR; BILIRUBIN,URINE NEGATIVE (NEGATIVE); COLOR,URINE YELLOW; GLUCOSE, URINE NEGATIVE (NEGATIVE); KETONES,URINE NEGATIVE (NEGATIVE); PROTEIN,URINE NEGATIVE (NEGATIVE); URINE SPECIFIC GRAVITY 1.016
[2019-02-20 22:29] LABS: URINE AMPHETAMINES SCREEN NEGATIVE; URINE BARBITURATES SCREEN NEGATIVE; URINE BENZODIAZEPINES SCREEN NEGATIVE; URINE COCAINE SCREEN NEGATIVE; URINE MARIJUANA (THC) SCREEN NEGATIVE; URINE METHADONE SCREEN NEGATIVE; URINE PHENCYCLIDINE SCREEN NEGATIVE
--- NOTE | 2019-02-20 23:01 | ER Document Report ---
ED General - General Chief Complaint: Cold Symptoms Stated Complaint: CONGESTION/COUGH/PAIN Time Seen by Provider: 02/20/19 19:22 Mode of Arrival: Wheelchair TRAVEL OUTSIDE OF THE [place] IN LAST 30 DAYS: No - HPI Notes: Patient is a 43-year-old male, well-known to this physician, who presents to the emergency department for evaluation of "pain all over" and a cough. Upon evaluation of the patient, I asked him what really brings him here to the emergency department. He asks if he can "just sleep here." He states he really does not have any place else to go. He states that he did drink today, but really has not been coughing much. He denies any pain. No shortness of breath. He states he just did not want to sleep outside. - Related Data Allergies/Adverse Reactions: No Known Allergies Allergy (Verified 02/20/19 19:24) Past Medical History - General Information source: Patient - Social History Smoking Status: Current Every Day Smoker Chew tobacco use (# tins/day): No Frequency of alcohol use: Heavy Drug Abuse: None Family History: Reviewed & Not Pertinent Patient has suicidal ideation: No Patient has homicidal ideation: No - Past Medical History Cardiac Medical History: Reports: None Pulmonary Medical History: Reports: Hx Asthma - as a child EENT Medical History: Reports: None Neurological Medical History: Reports: None Endocrine Medical History: Reports: None Renal/ Medical History: Reports: None. Denies: Hx Peritoneal Dialysis Malignancy Medical History: Reports None GI Medical History: Reports: None Musculoskeletal Medical History: Reports None Skin Medical History: Reports None Psychiatric Medical History: Reports: None Traumatic Medical History: Reports: None Infectious Medical History: Reports: None Surgical Hx: Negative Past Surgical History: Reports: None Review of Systems - Review of Systems Constitutional: See HPI EENT: No symptoms reported Cardiovascular: No symptoms reported Respiratory: No symptoms reported Gastrointestinal: No symptoms reported Genitourinary: No symptoms reported Skin: No symptoms reported Neurological/Psychological: No symptoms reported Physical Exam - Vital signs Vitals: Temp Pulse BP Pulse Ox 98.3 F 94 123/79 98 02/20/19 18:51 02/20/19 18:51 02/20/19 18:51 02/20/19 18:51 - Notes Notes: This is a 43-year-old male who appears his stated age in no acute distress. He is sleeping when I walk into the room, but he arouses easily to verbal stimuli. He is disheveled, but in no acute distress. Vital signs reviewed, please refer to chart. Head is normocephalic, atraumatic. Pupils equal round, reactive to light. Neck is supple without meningismus. Heart is regular rate and rhythm. Lungs are clear to auscultation bilaterally. Abdomen is soft, nontender, normoactive bowel sounds throughout. Extremities without cyanosis, clubbing. P osterior calves are nontender. Peripheral pulses are equal. Skin is warm and dry. Patient is awake, alert, neurological exam is nonfocal. Course - Re-evaluation Re-evalutation: 02/20/19 22:59 Patient presents emergency department for evaluation. His vital signs are unremarkable. Laboratory investigations were obtained, and shows no chronic abnormalities, but nothing acute. The patient is stable. At this point my suspicion is that this is regarding secondary gain and a place to stay through the night. Patient does not deny this. I will go ahead and discharge the patient. He is to follow-up with primary care, referral given to [facility]. He is to return to the ED with worsening or new concerning symptoms of any sort. - Vital Signs Vital signs: Temp Pulse Resp BP Pulse Ox 98.3 F 94 14 123/79 98 02/20/19 18:51 02/20/19 18:51 02/20/19 19:31 02/20/19 18:51 02/20/19 18:51 - Laboratory Result Diagrams: 02/20/19 19:34 02/20/19 19:34 Laboratory results interpreted by me: 02/20/19 02/20/19 02/20/19 19:34 19:34 21:40 RBC 3.93 L Hgb 13.1 L Hct 37.2 L RDW 14.9 H Plt Count 85 L Lymph % (Auto) 46.4 H Glucose 137 H AST 362 H Alkaline Phosphatase 164 H Urine Blood SMALL H Urine Urobilinogen 4.0 H Discharge - Discharge Clinical Impression: Alcohol abuse Condition: Stable Disposition: HOME, SELF-CARE Instructions: Chronic Alcoholism ([facility]) Additional Instructions: You should try to quit drinking. Please consider going to [place] for outpatient management of your alcohol dependence. Return to the ED with worsening or new concerning symptoms. Otherwise, follow-up with [facility] next week.
[2019-02-20 23:26] VITALS: BP 118/71
== END 2019-02-20 23:26 | disposition home or self-care (01) ==
LOC: ER 18:45
DX: F10.10 Alcohol abuse, uncomplicated (principal); R09.81 Nasal congestion; R05 Cough; F17.200 Nicotine dependence, unspecified, uncomplicated; J45.909 Unspecified asthma, uncomplicated
CPT/HCPCS: 36415; 80053; 80307; 81001; 85025; 99284

== ENCOUNTER 2019-03-02 03:51 | Emergency (ER) | payer SELFPAY ==
--- NOTE | 2019-03-02 08:13 | ER Document Report ---
ED General - General Chief Complaint: ETOH Abuse Stated Complaint: ETOH Time Seen by Provider: 03/02/19 08:01 Notes: 43-year-old male well-known to the emergency department presents to the emergency department for EtOH intoxication. Patient was sleeping in the room when I attempted to interview and was not interacting. Patient did say "what?". I can smell alcohol on his breath. Patient is uncooperative at this time. Patient is laying comfortably in the bed in no acute distress. TRAVEL OUTSIDE OF THE [place] IN LAST 30 DAYS: No - Related Data Allergies/Adverse Reactions: No Known Allergies Allergy (Verified 02/20/19 19:24) Past Medical History - Social History Smoking Status: Current Every Day Smoker Frequency of alcohol use: too much tonight Family History: Reviewed & Not Pertinent Patient has suicidal ideation: No Patient has homicidal ideation: No Pulmonary Medical History: Reports: Hx Asthma - as a child Renal/ Medical History: Denies: Hx Peritoneal Dialysis Review of Systems - Review of Systems -: Yes ROS unobtainable due to patient's medical condition Physical Exam - Vital signs Vitals: Temp Pulse Resp BP Pulse Ox 97.8 F 85 14 132/78 H 96 03/02/19 03:59 03/02/19 03:59 03/02/19 03:59 03/02/19 03:59 03/02/19 03:59 - Notes Notes: PHYSICAL EXAMINATION: Reviewed vital signs and charting by RN GENERAL: Alert, interacts well. No acute distress. HEAD: Normocephalic, atraumatic. EYES: Pupils equal and round. Extraocular movements intact. ENT: Oral mucosa moist, tongue midline. NECK: Full range of motion. Trachea midline. LUNGS: Clear to auscultation bilaterally, no wheezes, rales, or rhonchi. No respiratory distress. HEART: Regular rate and rhythm. No murmur ABDOMEN: soft, non-tender. No distention. Bowel sounds present EXTREMITIES: Moves all 4 extremities spontaneously. No edema, No cyanosis. PSYCH: Normal affect, normal mood. SKIN: Warm, dry, normal turgor. No rashes or lesions noted. Course - Re-evaluation Re-evalutation: 03/02/19 08:14 Patient is intoxicated and is known to this emergency department. I am going to give him some IV fluids to help perk him up and will reassess. 03/02/19 11:19 Patient received normal saline 2 L. Some basic blood work was obtained and was overall within normal limits except his blood glucose was 67. Patient was given sugary fluids to drink and will obtain an Accu-Chek. If sugar level has improved to within normal limits patient will be stable for discharge. - Vital Signs Vital signs: Temp Pulse Resp BP Pulse Ox 97.4 F 93 16 105/64 95 03/02/19 08:09 03/02/19 08:09 03/02/19 08:09 03/02/19 08:09 03/02/19 08:09 - Laboratory Result Diagrams: 03/02/19 09:49 03/02/19 09:49 Laboratory results interpreted by me: 03/02/19 03/02/19 09:49 09:49 RBC 3.51 L Hgb 12.2 L Hct 34.4 L MCV 98 H MCH 34.9 H RDW 14.8 H [place] % (Auto) 15.3 H Seg Neutrophils % 41.4 L Sodium 145.8 H Chloride 114 H Glucose 67 L Calcium 7.9 L Albumin 3.3 L Discharge - Discharge Clinical Impression: Alcohol intoxication Qualifiers: Complication of substance-induced condition: uncomplicated Qualified Code(s): F10.920 - Alcohol use, unspecified with intoxication, uncomplicated Condition: Good Disposition: HOME, SELF-CARE Additional Instructions: You were seen for alcohol intoxication. You have been given IV fluids and we gave you some sugary drinks to help bring your blood sugar up. You need to seek help as you have an alcohol problem. You have made multiple trips to the ER for the same thing and did not remember what happened. We can give you resources to help if you want to quit drinking. Please return to the emergency department if you have chest pain, uncontrollable shakes, weakness, rapid heart rate, you pass out, or you have any other concerning symptoms.
[2019-03-02] MEDS: NORMAL SALINE 1000 ML 1,000 ML IV PRN ×2 (08:19→09:20)
[2019-03-02 10:25] LABS: ALBUMIN 3.3 g/dL (3.5-5.0); ALKALINE PHOSPHATASE 105 U/L (38-126); ANION GAP 9 (5-19); ASPARTATE AMINO TRANSFERASE 45 U/L (17-59); BILIRUBIN,DIRECT 0.2 mg/dL (0.0-0.4); BILIRUBIN,TOTAL 0.3 mg/dL (0.2-1.3); BLOOD UREA NITROGEN 12 mg/dL (7-20); CALCIUM 7.9 mg/dL (8.4-10.2); CARBON DIOXIDE 23 mmol/L (22-30); CHLORIDE 114 mmol/L (98-107); POTASSIUM 4.6 mmol/L (3.6-5.0); TOTAL PROTEIN 6.5 g/dL (6.3-8.2)
[2019-03-02 10:29] LABS: GLUCOSE 67 mg/dL (75-110)
[2019-03-02 10:35] LABS: ABSOLUTE BASOPHILS # (AUTO) 0.1 10^3/uL (0.0-0.2); ABSOLUTE EOSINOPHILS # (AUTO) 0.2 10^3/uL (0.0-0.6); ABSOLUTE LYMPHOCYTES (AUTO) 3.3 10^3/uL (0.5-4.7); ABSOLUTE MONOCYTES (AUTO) 1.3 10^3/uL (0.1-1.4); ABSOLUTE NEUT (AUTO) 3.4 10^3/uL (1.7-8.2); BASOPHILS % (AUTO) 1.3 % (0-2); EOSINOPHILS % (AUTO) 2.3 % (0-6); HEMATOCRIT 34.4 % (37.9-51.0); HEMOGLOBIN 12.2 g/dL (13.5-17.0); LYMPHOCYTES % (AUTO) 39.7 % (13-45); MEAN CORPUSCULAR HEMOGLOBIN 34.9 pg (27.0-33.4); MEAN CORPUSCULAR HGB CONC 35.7 g/dL (32.0-36.0); MEAN CORPUSCULAR VOLUME 98 fl (80-97); MONOCYTES % (AUTO) 15.3 % (3-13); RED BLOOD COUNT 3.51 10^6/uL (4.35-5.55); RED CELL DISTRIBUTION WIDTH 14.8 % (11.5-14.0); SEGMENTED NEUTROPHILS % (AUTO) 41.4 % (42-78); TOTAL CELLS COUNTED % (AUTO) 100 %; WHITE BLOOD COUNT 8.3 10^3/uL (4.0-10.5)
[2019-03-02 10:58] LABS: PLATELET COUNT 152 10^3/uL (150-450)
[2019-03-02 11:33] VITALS: BP 103/56
== END 2019-03-02 11:31 | disposition home or self-care (01) ==
LOC: ER 03:51
DX: F10.920 Alcohol use, unspecified with intoxication, uncomplicated (principal); F17.200 Nicotine dependence, unspecified, uncomplicated
CPT/HCPCS: 99284; 96360; 96361; 36415; 82962; 83690; 85025; 80053; J7030

== ENCOUNTER 2019-03-03 03:02 | Emergency (ER) | payer SELFPAY ==
[2019-03-03] MEDS ORDERED: NORMAL SALINE 1000 ML 1,000 ML IV ONE (03:33)
[2019-03-03] MEDS ORDERED: LIDOCAINE 2% VISCOUS SOLN 20 ML UDCUP PO ONE (03:34)
[2019-03-03] MEDS ORDERED: ONDANSETRON HCL INJ/PF 4 MG/2 ML SDV IV ONE (03:34)
[2019-03-03] MEDS ORDERED: MAG HYDROX/AL HYDROX/SIMETH SUSP 30 ML UDCUP PO ONE (03:34)
--- NOTE | 2019-03-03 03:43 | ER Document Report ---
ED General - General Chief Complaint: Chest Pain Stated Complaint: CHEST PAIN Time Seen by Provider: 03/03/19 03:25 Notes: Mr. Stahl is a 43-year-old male with PMH of alcohol abuse presenting to the ED for chest pain. Patient states that the chest pain is centrally located and nonradiating. He states he has had this chest pain for many years. He does endorse drinking approximately a 12 pack of beer earlier this evening. He denies any shortness of breath, vomiting or diarrhea but does endorse some mild nausea. He denies any dyspnea upon exertion, cough, lower extremity edema, fevers or chills. Patient denies any previous history of heart attacks. He does not take any medications regularly. He states he drinks alcohol almost ev elba day. Patient states he only smokes 2 to 3 cigarettes daily. No family history of sudden or early cardiac . Patient denies any known history of previous DTs or tremor without drinking. TRAVEL OUTSIDE OF THE [place] IN LAST 30 DAYS: No - Related Data Allergies/Adverse Reactions: No Known Allergies Allergy (Verified 02/20/19 19:24) Past Medical History - Social History Smoking Status: Current Every Day Smoker Frequency of alcohol use: Heavy Family History: Reviewed & Not Pertinent Patient has suicidal ideation: No Patient has homicidal ideation: No Pulmonary Medical History: Reports: Hx Asthma - as a child Renal/ Medical History: Denies: Hx Peritoneal Dialysis Review of Systems - Review of Systems Constitutional: See HPI EENT: No symptoms reported Cardiovascular: See HPI Respiratory: No symptoms reported Gastrointestinal: No symptoms reported Genitourinary: No symptoms reported Male Genitourinary: No symptoms reported Musculoskeletal: No symptoms reported Skin: No symptoms reported Hematologic/Lymphatic: No symptoms reported Neurological/Psychological: No symptoms reported Physical Exam - Vital signs Vitals: Temp Pulse Resp BP Pulse Ox 97.7 F 97 14 124/71 100 03/03/19 03:06 03/03/19 03:06 03/03/19 03:06 03/03/19 03:06 03/03/19 03:06 Interpretation: Normal - General General appearance: Appears well, Alert - HEENT Head: Normocephalic, Atraumatic Eyes: Normal Conjunctiva: Injected Pupils: PERRL - Respiratory Respiratory status: No respiratory distress Chest status: Nontender Breath sounds: Normal Chest palpation: Normal - Cardiovascular Rhythm: Regular Heart sounds: Normal auscultation Murmur: No - Abdominal Inspection: Normal Distension: No distension Bowel sounds: Normal Tenderness: Nontender Organomegaly: No organomegaly - Back Back: Normal, Nontender - Extremities General upper extremity: Normal inspection, Nontender, Normal color, Normal ROM, Normal temperature General lower extremity: Normal inspection, Nontender, Normal color, Normal ROM, Normal temperature, Normal weight bearing. No: Stepan's sign - Neurological Neuro grossly intact: Yes Cognition: Normal Orientation: AAOx4 [place] Coma Scale Eye Opening: Spontaneous [place] Coma Scale Verbal: Oriented [place] Coma Scale Motor: Obeys Commands [place] Coma Scale Total: 15 Speech: Normal Motor strength normal: LUE, RUE, LLE, RLE Sensory: Normal - Psychological Associated symptoms: Normal affect, Normal mood - Skin Skin Temperature: Warm Skin Moisture: Dry Skin Color: Normal Course - Re-evaluation Re-evalutation: Patient is generally well-appearing and nontoxic. Initial vitals within normal limits. EKG nonischemic. Differential diagnosis includes alcoholic gastritis, dehydration, electrolyte abnormality, ACS (unlikely) 03/03/19 03:42 Although the patient is able to speak clearly without slurred speech and ambulated into the ED, he does have some injected eyes and appears somewhat intoxicated. Likely alcoholic gastritis. Patient has been seen numerous times before for chest pain as well as multiple other times for alcohol intoxication. Last visit was yesterday. Patient has never had a positive troponin and does not have significant risk factors other than male sex. Plan to obtain 1 set of troponins and basic labs. Will give Zofran, GI cocktail as well as IV fluids. Likely alcoholic gastritis. 03/03/19 06:27 CBC within normal limits. CMP shows mild hypernatremia however the patient got a full liter of fluid. Ethanol level is elevated at 299, however the patient is walking in the ED with a completely steady gait. He was seen here yesterday and his ethanol level was significantly higher at 377. Patient states that his chest pain has completely resolved. Likely alcoholic gastritis. Patient recommended to decrease his alcohol intake and offered information regarding [facility]. Patient given return precautions. - Vital Signs Vital signs: Temp Pulse Resp BP Pulse Ox 97.7 F 97 14 124/71 100 03/03/19 03:06 03/03/19 03:06 03/03/19 03:06 03/03/19 03:06 03/03/19 03:06 - Laboratory Result Diagrams: 03/03/19 04:15 03/03/19 04:15 Laboratory results interpreted by me: 03/03/19 03/03/19 04:15 04:15 RBC 3.53 L Hgb 11.8 L Hct 34.1 L MCH 33.5 H RDW 15.0 H Sodium 146.4 H Chloride 109 H - EKG Interpretation by Me EKG shows normal: Sinus rhythm, [place], QRS Complexes, ST-T Waves Rate: Normal Rhythm: NSR Heart block present: 1st Degree When compared to previous EKG there are: No significant change Discharge - Discharge Clinical Impression: Alcoholic gastritis Qualifiers: Chronicity: acute Gastritis bleeding: without bleeding Qualified Code(s): K29.20 - Alcoholic gastritis without bleeding Condition: Good Disposition: HOME, SELF-CARE Instructions: Prilosec (Acid Pump Inhibitor) ([facility]), Antacid Therapy ([facility]), Acute Alcohol Intoxication ([facility]), Chronic Alcoholism ([facility]) Additional Instructions: It is important that you decrease your alcohol intake. I would recommend that you follow-up with [facility]. It is likely your excessive alcohol intake that is causing your repeat episodes of chest pain. This is called alcoholic gastritis. I would recommend that you decrease your alcohol intake, start taking acid reducers and follow-up with a primary care doctor.
[2019-03-03] MEDS ORDERED: AMMONIA INHALANTS 10 AMPUL/BOX IH ONE (04:04)
--- NOTE | 2019-03-03 04:14 | RADIOLOGY REPORT (SQ) ---
EXAM DESCRIPTION: XR CHEST 1 VIEW COMPLETED DATE/TME: 03/03/2019 03:34 CLINICAL HISTORY: 43 years, Male, cp COMPARISON: 02/19/2019 NUMBER OF VIEWS: One TECHNIQUE: AP view of the chest LIMITATIONS: None. FINDINGS: Patient is slightly rotated towards the right. Lungs are clear. The heart is normal in size. There is no pneumothorax or pleural effusion. The bones are unremarkable. IMPRESSION: No acute cardiopulmonary abnormality copyright 2010 [employer]- All Rights Reserved
[2019-03-03 05:19] LABS: HEMATOCRIT 34.1 % (37.9-51.0); HEMOGLOBIN 11.8 g/dL (13.5-17.0); MEAN CORPUSCULAR HEMOGLOBIN 33.5 pg (27.0-33.4); MEAN CORPUSCULAR HGB CONC 34.7 g/dL (32.0-36.0); MEAN CORPUSCULAR VOLUME 97 fl (80-97); PLATELET COUNT 277 10^3/uL (150-450); RED BLOOD COUNT 3.53 10^6/uL (4.35-5.55); WHITE BLOOD COUNT 7.9 10^3/uL (4.0-10.5)
[2019-03-03 05:57] LABS: ALBUMIN 3.9 g/dL (3.5-5.0); ALCOHOL 299 mg/dL (NONE DETECTED); ALKALINE PHOSPHATASE 92 U/L (38-126); ANION GAP 12 (5-19); ASPARTATE AMINO TRANSFERASE 55 U/L (17-59); BILIRUBIN,DIRECT 0.3 mg/dL (0.0-0.4); BILIRUBIN,TOTAL 0.4 mg/dL (0.2-1.3); BLOOD UREA NITROGEN 15 mg/dL (7-20); CARBON DIOXIDE 25 mmol/L (22-30); CHLORIDE 109 mmol/L (98-107); GLUCOSE 81 mg/dL (75-110); POTASSIUM 4.1 mmol/L (3.6-5.0); TOTAL PROTEIN 7.6 g/dL (6.3-8.2)
[2019-03-03 06:03] LABS: ABSOLUTE LYMPHOCYTES# (MANUAL) 3.4 10^3/uL (0.5-4.7); ABSOLUTE MONOCYTES # (MANUAL) 0.4 10^3/uL (0.1-1.4); BASOPHILS % (MANUAL) 0 % (0-2); EOSINOPHILS % (MANUAL) 1 % (0-6); LYMPHOCYTES % (MANUAL) 43 % (13-45); MONOCYTES % (MANUAL) 5 % (3-13); SEGMENTED NEUTROPHILS % (MAN) 51 % (42-78); TOTAL CELLS COUNTED 100
[2019-03-03 06:04] LABS: ANISOCYTOSIS 1+; PLATELET COMMENT ADEQUATE; POLYCHROMASIA 1+
[2019-03-03 07:09] VITALS: BP 128/71
--- NOTE | 2019-03-03 08:09 | EKG REPORT ---
SEVERITY:- NORMAL ECG - SINUS RHYTHM : Confirmed by: Emerson Dietz MD 03-Mar-2019 08:08:47
== END 2019-03-03 07:07 | disposition home or self-care (01) ==
LOC: ER 03:02
DX: K29.20 Alcoholic gastritis without bleeding (principal); E87.0 Hyperosmolality and hypernatremia; I44.0 Atrioventricular block, first degree; R07.9 Chest pain, unspecified; R11.0 Nausea; F17.210 Nicotine dependence, cigarettes, uncomplicated
CPT/HCPCS: 93005; 99285; 96361; 96374; 36415; 80307; 85025; 80053; 84484; 71045; 93010; J3490; J2405; J7030

== ENCOUNTER 2019-03-04 04:08 | Emergency (ER) | payer SELFPAY ==
[2019-03-04 04:46] VITALS: BP 112/61
--- NOTE | 2019-03-04 07:09 | EKG REPORT ---
SEVERITY:- NORMAL ECG - SINUS RHYTHM : Confirmed by: Emerson Dietz MD 04-Mar-2019 07:09:24
--- NOTE | 2019-03-04 08:18 | ER Document Report ---
ED Cardiac - General Chief Complaint: Epigastric Pain Stated Complaint: CHEST PAIN Time Seen by Provider: 03/04/19 06:15 Mode of Arrival: Ambulatory Information source: Patient TRAVEL OUTSIDE OF THE [place] IN LAST 30 DAYS: No - HPI Notes: Patient presents complaining of chest pain. Patient is not cooperative with all of the questioning and will only answer occasional questions. Patient is well- known to the emergency department he has been here multiple times with chest pain, alcohol intoxication, and alcoholic gastritis. Patient states he has been having chest pain since yesterday. States it is constant. He says he does not know anything that makes it better or worse. He does not endorse any shortness of breath. Nor does he endorse any cough or cold symptoms. Patient was seen here yesterday for similar complaints with an extensive work-up which was negative. There is no no radiation of the patient's symptoms. Symptoms are apparently moderate. And intermittent. - Related Data Allergies/Adverse Reactions: No Known Allergies Allergy (Verified 03/04/19 07:35) Past Medical History - General Information source: Patient - Social History Smoking Status: Current Every Day Smoker Frequency of alcohol use: Heavy Drug Abuse: None Family History: Reviewed & Not Pertinent Patient has suicidal ideation: No Patient has homicidal ideation: No Pulmonary Medical History: Reports: Hx Asthma - as a child Renal/ Medical History: Denies: Hx Peritoneal Dialysis Review of Systems - Review of Systems Constitutional: denies: Chills, Fever Cardiovascular: Chest pain. denies: Palpitations Respiratory: denies: Cough, Short of breath -: Yes All other systems reviewed and negative Physical Exam - Vital signs Vitals: Temp Pulse Resp BP Pulse Ox 97.9 F 82 17 112/61 99 03/04/19 04:09 03/04/19 04:09 03/04/19 04:09 03/04/19 04:09 03/04/19 04:09 Interpretation: Normal - General General appearance: Appears well, Alert - HEENT Head: Normocephalic, Atraumatic Eyes: Normal Pupils: PERRL - Respiratory Respiratory status: No respiratory distress Chest status: Nontender Breath sounds: Normal Chest palpation: Normal - Cardiovascular Rhythm: Regular Heart sounds: Normal auscultation Murmur: No - Abdominal Inspection: Normal Distension: No distension Bowel sounds: Normal Tenderness: Nontender Organomegaly: No organomegaly - Back Back: Normal, Nontender - Extremities General upper extremity: Normal inspection, Nontender, Normal color, Normal ROM, Normal temperature General lower extremity: Normal inspection, Nontender, Normal color, Normal ROM, Normal temperature, Normal weight bearing. No: Stepan's sign - Neurological Neuro grossly intact: Yes Cognition: Normal Orientation: AAOx4 [place] Coma Scale Eye Opening: Spontaneous [place] Coma Scale Verbal: Oriented [place] Coma Scale Motor: Obeys Commands [place] Coma Scale Total: 15 Speech: Normal Motor strength normal: LUE, RUE, LLE, RLE Sensory: Normal - Psychological Associated symptoms: Normal affect, Normal mood - Skin Skin Temperature: Warm Skin Moisture: Dry Skin Color: Normal Course - Re-evaluation Re-evalutation: 03/04/19 08:16 Patient well-known to the emergency department. EKG is unchanged without signs of ischemia. I do not feel that the patient would benefit from further work-up or evaluation. - Vital Signs Vital signs: Temp Pulse Resp BP Pulse Ox 97.9 F 82 17 112/61 99 03/04/19 04:45 03/04/19 04:45 03/04/19 04:45 03/04/19 04:45 03/04/19 04:45 - EKG Interpretation by Ne EKG shows normal: Sinus rhythm Rate: Normal - 78 Rhythm: NSR [place]/QRS: No: Right axis deviation, Left axis deviation Discharge - Discharge Clinical Impression: Chest pain Qualifiers: Chest pain type: unspecified Qualified Code(s): R07.9 - Chest pain, unspecified Condition: Stable Disposition: HOME, SELF-CARE Instructions: Chest Pain of Unclear Cause ([facility]) Additional Instructions: Please follow-up with your primary care physician as soon as possible Please follow-up with [facility] as soon as possible as instructed yesterday.
== END 2019-03-04 08:40 | disposition home or self-care (01) ==
LOC: ER 04:08
DX: R07.9 Chest pain, unspecified (principal); R10.13 Epigastric pain; F17.200 Nicotine dependence, unspecified, uncomplicated; J45.909 Unspecified asthma, uncomplicated
CPT/HCPCS: 93005; 93010; 99285

== ENCOUNTER 2019-03-05 01:51 | Emergency (ER) | payer SELFPAY ==
--- NOTE | 2019-03-05 04:51 | ER Document Report ---
ED General - General Chief Complaint: Chest Pain Stated Complaint: CHEST PAIN Time Seen by Provider: 03/05/19 04:43 Notes: Patient is a 43-year-old male with a history of alcohol abuse and alcohol dependence that comes to the emergency department for chief complaint of alcohol intoxication and chest pain. He tells me that for the past several days he has been drinking, he states that every day he has had pains in his chest that are intermittent and come and go. He denies injury, shortness of breath, vomiting, fever, or change in the symptoms for the past several days. He denies any daily medications. He denies recreational drugs. He states he has never undergone alcohol detox and he is not sure that he wants to. TRAVEL OUTSIDE OF THE [place] IN LAST 30 DAYS: No - Related Data Allergies/Adverse Reactions: No Known Allergies Allergy (Verified 03/04/19 07:35) Past Medical History - General Information source: Patient - Social History Smoking Status: Current Every Day Smoker Frequency of alcohol use: Heavy Lives with: Alone Family History: Reviewed & Not Pertinent Patient has suicidal ideation: No Patient has homicidal ideation: No Pulmonary Medical History: Reports: Hx Asthma - as a child Renal/ Medical History: Denies: Hx Peritoneal Dialysis - Immunizations Immunizations up to date: Yes Hx Diphtheria, Pertussis, Tetanus Vaccination: Yes Review of Systems - Review of Systems Constitutional: No symptoms reported EENT: No symptoms reported Cardiovascular: See HPI Respiratory: No symptoms reported Gastrointestinal: See HPI Genitourinary: No symptoms reported Male Genitourinary: No symptoms reported Musculoskeletal: No symptoms reported Skin: No symptoms reported Hematologic/Lymphatic: No symptoms reported Neurological/Psychological: See HPI Physical Exam - Vital signs Vitals: Temp Pulse Resp BP Pulse Ox 98.4 F 81 16 124/76 100 03/05/19 01:52 03/05/19 01:52 03/05/19 01:52 03/05/19 01:52 03/05/19 01:52 - Notes Notes: GENERAL: Sleeping but easily aroused HEAD: Normocephalic, atraumatic. EYES: Pupils equal, round, and reactive to light. Extraocular movements intact. ENT: Oral mucosa moist, tongue midline. Oropharynx unremarkable. Airway patent. NECK: Full range of motion. Supple. Trachea midline. LUNGS: Clear to auscultation bilaterally, no wheezes, rales, or rhonchi. No respiratory distress. HEART: Regular rate and rhythm. No murmur ABDOMEN: Soft, non-tender. Non-distended. EXTREMITIES: Moves all 4 extremities spontaneously. No edema, normal radial and dorsalis pedis pulses bilaterally. No cyanosis. BACK: no cervical, thoracic, lumbar midline tenderness. No saddle anesthesia, normal distal neurovascular exam. Moves all extremities in full range of motion. NEUROLOGICAL: Alert and oriented x3. Normal speech. Cranial nerves II through XII grossly intact. PSYCH: Speaks quietly, avoids eye contact but answers questions appropriately SKIN: Warm, dry, normal turgor. No rashes or lesions noted. Course - Re-evaluation Re-evalutation: EKG and chest x-ray are unremarkable. I did review previous visits, he has been here now for days in a row, he has had a negative cardiac work-up, symptoms reported have not changed, patient has been reporting that he was just looking for a place to stay at night and sleep after getting intoxicated. He admits to alcohol intoxication although he does not appear clinically intoxicated with no slurring of words or unsteadiness. I discussed results with patient. I discussed his previous visits, discussed his symptoms. I feel this is most likely esophagitis/gastritis from alcohol abuse. He states he does agree with this. I discussed treatments and precautions in regards to this. I also discussed detox again, he states he is interested and I discussed the location, he states he will consider going over there. He has states he has no other questions or complaints, states he is ready to go home, patient stable at time of discharge. - Vital Signs Vital signs: Temp Pulse Resp BP Pulse Ox 97.9 F 63 16 106/58 L 98 03/05/19 06:16 03/05/19 06:16 03/05/19 06:16 03/05/19 06:16 03/05/19 06:16 - EKG Interpretation by Me Additional EKG results interpreted by me: EKG shows sinus rhythm at a rate of 82, QTC of 425, normal axis, no T wave inversions or ST segment changes in consecutive leads Discharge - Discharge Clinical Impression: Alcohol abuse Alcohol intoxication Qualifiers: Complication of substance-induced condition: with unspecified complication Qualified Code(s): F10.929 - Alcohol use, unspecified with intoxication, unspecified Chest pain Qualifiers: Chest pain type: unspecified Qualified Code(s): R07.9 - Chest pain, unspecified Condition: Stable Disposition: HOME, SELF-CARE Additional Instructions: Your work-up today does not show any concerning finding. Avoid drinking alcohol to intoxication, follow-up with the detox center, details listed below. Take the famotidine as prescribed to completion. Return if you worsen including vomiting, vomiting blood, black stools, fever, or any other concerning or worsening symptoms. [facility] service in [address], [place] [address] Prescriptions: Famotidine [Pepcid 20 mg Tablet] 20 mg PO BID #14 tablet
--- NOTE | 2019-03-05 05:55 | RADIOLOGY REPORT (SQ) ---
Chest single view on 03/05/2019 at 5:17 AM CLINICAL INDICATION: Chest pain COMPARISON: 03/03/2019 FINDINGS: The lungs are clear. There is mild elevation of the right hemidiaphragm. Cardiac, hilar and mediastinal contours are within normal limits. Pulmonary vascularity is within normal limits. No bony abnormality is noted. IMPRESSION: No active disease.
[2019-03-05] MEDS ORDERED: FAMOTIDINE 20 MG TABLET PO ONE (06:03)
[2019-03-05 06:17] VITALS: BP 106/58
--- NOTE | 2019-03-05 07:51 | EKG REPORT ---
SEVERITY:- NORMAL ECG - SINUS RHYTHM : Confirmed by: Emerson Dietz MD 05-Mar-2019 07:50:30
== END 2019-03-05 06:16 | disposition home or self-care (01) ==
LOC: ER 01:51
DX: F10.929 Alcohol use, unspecified with intoxication, unspecified (principal); R07.9 Chest pain, unspecified; F17.200 Nicotine dependence, unspecified, uncomplicated
CPT/HCPCS: 71045; 93005; 93010; 99285

== ENCOUNTER 2019-03-05 22:36 | Emergency (ER) | payer SELFPAY ==
--- NOTE | 2019-03-05 23:41 | ER Document Report ---
ED Medical Screen (RME) - General Stated Complaint: ALTERED MENTAL STATUS Time Seen by Provider: 03/05/19 23:36 Mode of Arrival: Medic Information source: Transfer Record Notes: Patient presents with the report of altered mental status per EMS. Patient lethargic in triage. Patient occasionally will respond to questioning. Patient does complain of upper abdominal tenderness. Patient does admit to drinking alcohol this evening. Patient has a known history of chronic alcoholism for which he is seen frequently in the emergency department as he is also homeless. I have greeted and performed a rapid initial assessment of this patient. A comprehensive ED assessment and evaluation of the patient, analysis of test results and completion of the medical decision making process will be conducted by additional ED providers. TRAVEL OUTSIDE OF THE [place] IN LAST 30 DAYS: No - Related Data Allergies/Adverse Reactions: No Known Allergies Allergy (Verified 03/04/19 07:35) Past Medical History - Social History Chew tobacco use (# tins/day): No Frequency of alcohol use: Heavy Drug Abuse: None Pulmonary Medical History: Reports: Hx Asthma - as a child Renal/ Medical History: Denies: Hx Peritoneal Dialysis - Immunizations Immunizations up to date: Yes Hx Diphtheria, Pertussis, Tetanus Vaccination: Yes Physical Exam - Vital signs Vitals: Temp Pulse Resp BP Pulse Ox 97.3 F 92 16 101/67 98 03/05/19 23:05 03/05/19 23:05 03/05/19 23:05 03/05/19 23:05 03/05/19 23:05 - Abdominal Tenderness: Tender - Upper abdomen Course - Vital Signs Vital signs: Temp Pulse Resp BP Pulse Ox 97.3 F 92 16 101/67 98 03/05/19 23:32 03/05/19 23:32 03/05/19 23:32 03/05/19 23:32 03/05/19 23:32
--- NOTE | 2019-03-06 00:42 | RADIOLOGY REPORT (SQ) ---
EXAM DESCRIPTION: CT HEAD WITHOUT IV CONTRAST COMPLETED DATE/TME: 03/05/2019 23:37 CLINICAL HISTORY: 43 years, Male, +etoh, diff to arouse COMPARISON: 02/18/2019 CT TECHNIQUE: 215 Images stored on PACS. All CT scanners at this facility use dose modulation, iterative reconstruction, and/or weight based dosing when appropriate to reduce radiation dose to as low as reasonably achievable (ALARA). [facility]: Dose Right [facility]: CareDose [facility]: Dose Right [facility]: Teradose 4D [facility]: [employer] LIMITATIONS: None. FINDINGS: The globes are intact. The paranasal sinuses and mastoid air cells are unremarkable. No displaced or depressed skull fracture. No intra or extra-axial hemorrhage. CT is limited for evaluation of acute infarct. No CT evidence for large or territorial acute infarct. No mass or midline shift IMPRESSION: Negative exam TECHNICAL DOCUMENTATION: Quality ID # [id number]: Final reports with documentation of one or more dose reduction techniques (e.g., Automated exposure control, adjustment of the mA and/or kV according to patient size, use of iterative reconstruction technique) copyright 2011 [employer]- All Rights Reserved
[2019-03-06 01:15] LABS: HEMATOCRIT 36.3 % (37.9-51.0); HEMOGLOBIN 12.6 g/dL (13.5-17.0); MEAN CORPUSCULAR HEMOGLOBIN 33.6 pg (27.0-33.4); MEAN CORPUSCULAR HGB CONC 34.6 g/dL (32.0-36.0); MEAN CORPUSCULAR VOLUME 97 fl (80-97); PLATELET COUNT 291 10^3/uL (150-450); RED BLOOD COUNT 3.73 10^6/uL (4.35-5.55); RED CELL DISTRIBUTION WIDTH 14.8 % (11.5-14.0); WHITE BLOOD COUNT 6.4 10^3/uL (4.0-10.5)
[2019-03-06 01:30] LABS: ALBUMIN 3.8 g/dL (3.5-5.0); ALKALINE PHOSPHATASE 94 U/L (38-126); ANION GAP 14 (5-19); ASPARTATE AMINO TRANSFERASE 85 U/L (17-59); BILIRUBIN,DIRECT 0.3 mg/dL (0.0-0.4); BILIRUBIN,TOTAL 0.5 mg/dL (0.2-1.3); BLOOD UREA NITROGEN 17 mg/dL (7-20); CALCIUM 8.6 mg/dL (8.4-10.2); CARBON DIOXIDE 27 mmol/L (22-30); CHLORIDE 106 mmol/L (98-107); GLUCOSE 97 mg/dL (75-110); POTASSIUM 4.2 mmol/L (3.6-5.0); TOTAL PROTEIN 7.7 g/dL (6.3-8.2)
[2019-03-06 01:44] LABS: ABSOLUTE LYMPHOCYTES# (MANUAL) 2.3 10^3/uL (0.5-4.7); BAND NEUTROPHILS % (MANUAL) 1 % (3-5); BASOPHILS % (MANUAL) 0 % (0-2); EOSINOPHILS % (MANUAL) 6 % (0-6); LYMPHOCYTES % (MANUAL) 36 % (13-45); MONOCYTES % (MANUAL) 16 % (3-13); NUCLEATED RED BLOOD CELLS 3 /100 WBC (0); SEGMENTED NEUTROPHILS % (MAN) 41 % (42-78); TOTAL CELLS COUNTED 100
[2019-03-06 01:45] LABS: ANISOCYTOSIS SLIGHT; PLATELET COMMENT ADEQUATE; TOXIC VACUOLATION PRESENT
--- NOTE | 2019-03-06 04:29 | ER Document Report ---
ED General - General Chief Complaint: ETOH Abuse Stated Complaint: ALTERED MENTAL STATUS Time Seen by Provider: 03/05/19 23:36 Mode of Arrival: Medic Notes: 43-year-old male who was found sleeping outside brought to the emergency department by EMS. Patient states that he has been drinking again. States that after I saw him the last time and arrange for him to go to [facility] he did not follow-up. States that he drinks every day. Has no other complaints. TRAVEL OUTSIDE OF THE [place] IN LAST 30 DAYS: No - Related Data Allergies/Adverse Reactions: No Known Allergies Allergy (Verified 03/04/19 07:35) Past Medical History - General Information source: Patient, Transfer Record - Social History Smoking Status: Current Every Day Smoker Chew tobacco use (# tins/day): No Frequency of alcohol use: Heavy Drug Abuse: None Family History: Reviewed & Not Pertinent Patient has suicidal ideation: No Patient has homicidal ideation: No Pulmonary Medical History: Reports: Hx Asthma - as a child Renal/ Medical History: Denies: Hx Peritoneal Dialysis - Immunizations Immunizations up to date: Yes Hx Diphtheria, Pertussis, Tetanus Vaccination: Yes Review of Systems - Review of Systems Constitutional: No symptoms reported Neurological/Psychological: See HPI - Admits to drinking every day. No desire to quit. -: Yes All other systems reviewed and negative Physical Exam - Vital signs Vitals: Temp Pulse Resp BP Pulse Ox 97.3 F 92 16 101/67 98 03/05/19 23:05 03/05/19 23:05 03/05/19 23:05 03/05/19 23:05 03/05/19 23:05 Interpretation: Normal - Notes Notes: GENERAL: Sleeping in bed, awakens easily, smells strongly of alcohol. No acute distress. HEAD: Normocephalic, atraumatic EYES: Pupils equal, round and reactive to light, extraocular movements intact. ENT: Oral mucosa moist, tongue midline. NECK: Full range of motion, supple, trachea midline. LUNGS: Clear to auscultation bilaterally, no wheezes, rales or rhonchi, no respiratory distress. HEART: Regular rate and rhythm, no murmurs, gallops, rubs. ABDOMEN: Soft, mild epigastric tenderness palpation, nondistended, bowel sounds present in all 4 quadrants. EXTREMITIES: Moves all 4 extremities spontaneously, no edema, radial and d orsalis pedis pulses 2/4 bilaterally. No cyanosis. NEUROLOGICAL: Sleeping but awakens easily, oriented x3, normal speech. PSYCH: Normal mood, normal affect. SKIN: Warm, Dry, normal turgor, no rashes or lesions noted. Course - Re-evaluation Re-evalutation: 03/06/19 04:28 CBC shows anemia with hemoglobin 12.6, no leukocytosis, CMP shows elevated lipase at 834.2, CT scan of the head is negative for any acute process. Discussed with patient that he has mild pancreatitis, this is likely triggered by the alcohol. Discussed with the patient that the pancreatitis will not go away unless he stops drinking alcohol. Patient denies any vomiting. Does not want help quitting drinking at this time. Patient is counseled to stop dr og, go to [place] to see if there are any resources available to him and return to the emergency department for any new or concerning symptoms. - Vital Signs Vital signs: Temp Pulse Resp BP Pulse Ox 97.3 F 92 16 101/67 98 03/05/19 23:32 03/05/19 23:32 03/05/19 23:32 03/05/19 23:32 03/05/19 23:32 - Laboratory Result Diagrams: 03/06/19 01:03 03/06/19 01:03 Laboratory results interpreted by me: 03/06/19 03/06/19 01:03 01:03 RBC 3.73 L Hgb 12.6 L Hct 36.3 L MCH 33.6 H RDW 14.8 H Seg Neuts % (Manual) 41 L Band Neutrophils % 1 L Monocytes % (Manual) 16 H Sodium 146.7 H AST 85 H Lipase 834.2 H Discharge - Discharge Clinical Impression: Alcohol intoxication Qualifiers: Complication of substance-induced condition: uncomplicated Qualified Code(s): F10.920 - Alcohol use, unspecified with intoxication, uncomplicated Pancreatitis, alcoholic, acute Qualifiers: Acute pancreatitis complication: no infection or necrosis Qualified Code(s): K85.20 - Alcohol induced acute pancreatitis without necrosis or infection Condition: Stable Disposition: HOME, SELF-CARE Additional Instructions: Pancreatitis Pancreatitis is an inflammation of the pancreas, an organ at the back of your abdomen. The pancreas produces insulin and enzymes that digest your food. Pancreatitis can be caused by gallstones in the bile duct, by alcohol or virus es, or by excess fat or calcium in the blood stream. Occasionally, pancreatitis occurs when a stomach ulcer navarro through into the pancreas. We try to find the cause of pancreatitis, but some tests can't be done until the pancreas heals. The usual symptoms of pancreatitis are pain in the pit of the stomach that goes straight through to the back, vomiting, and low-grade fever. Severe cases require hospital admission, but many patients with mild pancreatitis do well at home. You will probably need medicine for pain and for vomiting. Sometimes we prescribe medicine to decrease stomach acid secretion and to decrease flow of pancreatic juices. Start with a diet of clear liquids (soda pop, juices). When the pain is decreasing, you can add some simple starches (potato, toast, apple sauce). Avoid proteins and fats until you are completely painfree. When you're better, your doctor may suggest treatment to prevent future pancreatitis (such as gallbladder removal). Avoid alcohol forever. Get immediate treatment for any future episodes. Contact your doctor at once or return here if you have increasing pain, shortness of breath, general swelling, increasing size of the abdomen, continued vomiting, muscle spasms, or other new symptoms.
[2019-03-06 04:53] VITALS: BP 108/67
== END 2019-03-06 04:53 | disposition home or self-care (01) ==
LOC: ER 22:36
DX: K85.20 Alcohol induced acute pancreatitis without necrosis or infection (principal); F10.120 Alcohol abuse with intoxication, uncomplicated; R10.816 Epigastric abdominal tenderness; F17.200 Nicotine dependence, unspecified, uncomplicated
CPT/HCPCS: 36415; 70450; 80053; 83690; 85025; 99285

== ENCOUNTER 2019-03-06 18:25 | Inpatient (IN) | payer SELFPAY ==
[2019-03-06] MEDS ORDERED: NORMAL SALINE 1000 ML 1,000 ML IV ONE ×2 (20:16→22:51)
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
[2019-03-06 20:51] LABS: ABSOLUTE EOSINOPHILS # (AUTO) 0.1 10^3/uL (0.0-0.6); ABSOLUTE LYMPHOCYTES (AUTO) 2.7 10^3/uL (0.5-4.7); ABSOLUTE MONOCYTES (AUTO) 0.8 10^3/uL (0.1-1.4); ABSOLUTE NEUT (AUTO) 3.1 10^3/uL (1.7-8.2); BASOPHILS % (AUTO) 0.4 % (0-2); EOSINOPHILS % (AUTO) 1.5 % (0-6); HEMOGLOBIN 13.6 g/dL (13.5-17.0); LYMPHOCYTES % (AUTO) 40.2 % (13-45); MEAN CORPUSCULAR VOLUME 97 fl (80-97); MONOCYTES % (AUTO) 11.4 % (3-13); PLATELET COUNT 312 10^3/uL (150-450); RED BLOOD COUNT 4.11 10^6/uL (4.35-5.55); SEGMENTED NEUTROPHILS % (AUTO) 46.5 % (42-78); TOTAL CELLS COUNTED % (AUTO) 100 %; WHITE BLOOD COUNT 6.6 10^3/uL (4.0-10.5)
--- NOTE | 2019-03-06 20:59 | EKG REPORT ---
SEVERITY:- NORMAL ECG - SINUS RHYTHM : Confirmed by: Emerson Dietz MD 06-Mar-2019 20:58:23
[2019-03-06 21:07] LABS: ALBUMIN 3.9 g/dL (3.5-5.0); ALKALINE PHOSPHATASE 77 U/L (38-126); ANION GAP 11 (5-19); ASPARTATE AMINO TRANSFERASE 174 U/L (17-59); BILIRUBIN,DIRECT 0.2 mg/dL (0.0-0.4); BILIRUBIN,TOTAL 0.6 mg/dL (0.2-1.3); BLOOD UREA NITROGEN 14 mg/dL (7-20); CALCIUM 8.4 mg/dL (8.4-10.2); CARBON DIOXIDE 30 mmol/L (22-30); CHLORIDE 104 mmol/L (98-107); GLUCOSE 107 mg/dL (75-110); POTASSIUM 4.3 mmol/L (3.6-5.0); TOTAL PROTEIN 7.7 g/dL (6.3-8.2)
[2019-03-06 21:14] LABS: ACETAMINOPHEN < 10 ug/mL (10-30); SALICYLATE < 1.0 mg/dL (2.0-20.0)
[2019-03-06 21:16] LABS: ALCOHOL 436 mg/dL (NONE DETECTED)
--- NOTE | 2019-03-06 21:17 | ER Document Report ---
ED General - General Chief Complaint: ETOH Abuse Stated Complaint: ETOH Time Seen by Provider: 03/06/19 20:14 Notes: 43-year-old male brought in by EMS because he was found sleeping outside of [facility]. Patient has no complaints, admits to drinking, denies abdominal pain or vomiting. Patient was just discharged from the emergency department last evening after being brought in for a similar reason, he was found sleeping outside of a different building. Patient denies any needs or requests. Has no complaints at this time. Admits to drinking alcohol this evening. TRAVEL OUTSIDE OF THE [place] IN LAST 30 DAYS: No - Related Data Allergies/Adverse Reactions: No Known Allergies Allergy (Verified 03/04/19 07:35) Past Medical History - General Information source: Patient - Social History Smoking Status: Current Every Day Smoker Chew tobacco use (# tins/day): No Frequency of alcohol use: Heavy Drug Abuse: None Family History: Reviewed & Not Pertinent Patient has suicidal ideation: No Patient has homicidal ideation: No Pulmonary Medical History: Reports: Hx Asthma - as a child Renal/ Medical History: Denies: Hx Peritoneal Dialysis - Immunizations Immunizations up to date: Yes Hx Diphtheria, Pertussis, Tetanus Vaccination: Yes Review of Systems - Review of Systems Constitutional: No symptoms reported -: Yes All other systems reviewed and negative Physical Exam - Vital signs Vitals: Temp Pulse Resp BP Pulse Ox 97.8 F 86 16 146/76 H 100 03/06/19 18:26 03/06/19 18:26 03/06/19 18:26 03/06/19 18:26 03/06/19 18:26 Interpretation: Hypertensive - Notes Notes: GENERAL: Sleeping in bed, smells strongly of alcohol, will awaken to voice and to shaking his shoulder. Initially refuses to talk but follows commands. Eventually agrees to talk to me. No acute distress. HEAD: Normocephalic, atraumatic EYES: Pupils equal, round and reactive to light, extraocular movements intact. ENT: Oral mucosa moist, tongue midline. NECK: Full range of motion, supple, trachea midline. LUNGS: Clear to auscultation bilaterally, no wheezes, rales or rhonchi, no respiratory distress. HEART: Regular rate and rhythm, no murmurs, gallops, rubs. ABDOMEN: Soft, nontender, nondistended, bowel sounds present in all 4 quadrants. EXTREMITIES: Moves all 4 extremities spontaneously, no edema, radial and dorsalis pedis pulses 2/4 bilaterally. No cyanosis. NEUROLOGICAL: Sleeping but will awaken, oriented x3, normal speech, no facial droop, biceps and patellar DTRs 2+ bilaterally. Follows commands. SKIN: Warm, Dry, normal turgor, no rashes or lesions noted. Course - Re-evaluation Re-evalutation: 03/06/19 23:48 CBC unremarkable, CMP shows elevated AST at 174, ALT and alk phos normal, total and direct bilirubin normal, lipase elevated 2683, this is 3 times higher than it was less than 24 hours ago, serum alcohol level markedly elevated at 436. EKG is nonischemic. Given the threefold increase in his lipase I discussed with the patient outpatient treatment of pancreatitis induced by alcohol involving quitting drinking and taking a benzodiazepine such as Librium to prevent with drawal versus inpatient treatment. Patient prefers inpatient treatment for his pancreatitis. Patient is aware he will need to quit drinking permanently or else the pancreatitis will just continue to come back. Discussed with Dr. Wyman, patient will be admitted. - Vital Signs Vital signs: Temp Pulse Resp BP Pulse Ox 97.8 F 84 16 101/64 94 03/06/19 18:26 03/06/19 21:58 03/06/19 21:58 03/06/19 21:58 03/06/19 21:58 - Laboratory Result Diagrams: 03/06/19 20:30 03/06/19 20:30 Laboratory results interpreted by me: 03/06/19 03/06/19 03/06/19 20:30 20:30 20:30 RBC 4.11 L RDW 15.0 H Sodium 145.1 H AST 174 H Lipase 2683.1 H Salicylates < 1.0 L Acetaminophen < 10 L Serum Alcohol 436 H* - EKG Interpretation by Me Additional EKG results interpreted by me: 03/06/19 21:17 EKG shows sinus rhythm at a rate of 85, normal axis, normal intervals, no ST segment elevations or depressions, no T wave inversions, rapid R wave progression per my interpretation. Discharge - Discharge Clinical Impression: Pancreatitis, alcoholic, acute Qualifiers: Acute pancreatitis complication: no infection or necrosis Qualified Code(s): K85.20 - Alcohol induced acute pancreatitis without necrosis or infection Alcohol intoxication Qualifiers: Complication of substance-induced condition: uncomplicated Qualified Code(s): F10.920 - Alcohol use, unspecified with intoxication, uncomplicated Condition: Stable Disposition: ADMITTED INPATIENT Admitting Provider: Garo (Hospitalist) Unit Admitted: Medical Floor
[2019-03-07] MEDS ORDERED: LEVALBUTEROL HCL NEB 0.63 MG/3 ML AMPUL NEB PRN (00:24)
[2019-03-07] MEDS ORDERED: MAG HYDROX/AL HYDROX/SIMETH SUSP 30 ML UDCUP PO PRN (00:24)
[2019-03-07] MEDS ORDERED: MAGNESIUM HYDROXIDE SUSP 30 ML UDCUP PO PRN (00:24)
[2019-03-07] MEDS ORDERED: RINGERS SOLUTION,LACTATED 1,000 ML IV PRN (00:24)
[2019-03-07] MEDS ORDERED: DIAZEPAM INJ 10 MG/2 ML DISP.SYRIN IV PRN (00:31)
[2019-03-07] MEDS ORDERED: CHLORPROMAZINE HCL INJ 25 MG/1 ML AMPULE IV PRN (00:31)
[2019-03-07] MEDS ORDERED: HYDRALAZINE HCL INJ/PF 20 MG/1 ML SDV IV PRN (00:31)
[2019-03-07] MEDS ORDERED: ACETAMINOPHEN 325 MG TABLET PO PRN (00:31)
[2019-03-07] MEDS ORDERED: NICOTINE 21 MG/24 HR PATCH.TD24 TD PRN (00:31)
[2019-03-07] MEDS ORDERED: NALBUPHINE HCL INJ 10 MG/1 ML AMPULE IV PRN ×3 (00:31→00:41)
[2019-03-07] MEDS: DIAZEPAM 5 MG TABLET PO SCH ×2 (02:21→05:23)
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
[2019-03-07] MEDS ORDERED: HEPARIN SOD (PORCINE) 5,000 UNIT/ML 1 ML VIAL SUBCUT SCH (06:00)
[2019-03-07] MEDS ORDERED: SUCRALFATE 1 GM TABLET PO SCH (08:00)
[2019-03-07] MEDS ORDERED: METOCLOPRAMIDE HCL 10 MG TABLET PO SCH (08:00)
[2019-03-07] MEDS ORDERED: FAMOTIDINE 20 MG TABLET PO SCH (08:00)
[2019-03-07] MEDS ORDERED: METOCLOPRAMIDE HCL INJ/PF 10 MG/2 ML SDV IV SCH (08:00)
[2019-03-07] MEDS ORDERED: LIPASE/PROTEASE/AMYLASE 1 CAP CAPSULE.DR PO SCH (08:00)
[2019-03-07 08:32] VITALS: BP 106/60
[2019-03-07] MEDS ORDERED: DOCUSATE SODIUM 100 MG/10 ML UDC PO SCH (10:00)
--- NOTE | 2019-03-07 14:40 | Left Against Medical Advice ---
Against Medical Advice Admission Date/Time: 03/06/19 23:59 Primary Care Provider: Date of Patient Emigration: 03/07/19 - Diagnosis: (1) Serum lipase elevation Is this a current diagnosis for this admission?: Yes (2) Acute alcohol intoxication in patient with alcoholism with blood alcohol level over 0.3 Is this a current diagnosis for this admission?: Yes (3) Chronic alcohol dependence, continuous Is this a current diagnosis for this admission?: Yes (4) Hypernatremia Is this a current diagnosis for this admission?: Yes (5) Tobacco use disorder, severe, dependence Is this a current diagnosis for this admission?: Yes - Summary: Summary: Please see Admission and Progress Notes as well. MARCIA LYNN is a 43 M, who LEFT AGAINST MEDICAL ADVICE. The Patient was admitted on 03/06/19 23:59. Patient was admitted to medical floor started on IV fluids and DT precautions however patient decided to leave AMA. Patient alert, oriented x3, vitals within normal limits however was not passing flatus, has not had a bowel movement and presented with severely elevated EtOH level. Patient was advised that he was not medically safe to be discharged however he insisted on leaving AMA.
== END 2019-03-07 09:00 | disposition left against medical advice (07) | DRG 894 ==
LOC: ER 18:25 → EH 23:59 → 4S 03-07 01:31
PROVIDERS: ADMIT Emergency Medicine; ATTEND Emergency Medicine
DX: F10.229 Alcohol dependence with intoxication, unspecified (principal); E87.0 Hyperosmolality and hypernatremia; F17.210 Nicotine dependence, cigarettes, uncomplicated; Y90.8 Blood alcohol level of 240 mg/100 ml or more
CPT/HCPCS: 36415; 80307; 82150; 83690; 87070; 93005; 93010; 96360; 99285; J1644; J7030; J7120

== ENCOUNTER 2019-03-07 20:02 | Emergency (ER) | payer SELFPAY ==
[2019-03-07 20:10] VITALS: BP 135/74
[2019-03-07] MEDS ORDERED: NORMAL SALINE 1000 ML 1,000 ML IV ONE (20:42)
[2019-03-07] MEDS ORDERED: ONDANSETRON HCL INJ/PF 4 MG/2 ML SDV IV ONE (20:42)
--- NOTE | 2019-03-07 20:46 | ER Document Report ---
ED Medical Screen (RME) - General Chief Complaint: Abdominal Pain Stated Complaint: ABDOMINAL PAIN Time Seen by Provider: 03/07/19 20:39 TRAVEL OUTSIDE OF THE [place] IN LAST 30 DAYS: No - HPI Notes: 03/07/19 20:44 Patient is a 43-year-old male who presents for reevaluation complaining of abdominal pain after he signed out AGAINST MEDICAL ADVICE 6 hours ago from the hospitalist service. Patient is well-known to the emergency department and was admitted last night for pancreatitis most likely alcohol induced as he had a very high alcohol level. I have treated and performed a rapid initial assessment of this patient. A comprehensive ED assessment and evaluation of the patient, analysis of test results and completion of medical decision making process will be conducted by additional ED providers. PHYSICAL EXAMINATION: GENERAL: Well-appearing, well-nourished and in no acute distress. Abdomen: Patient does have epigastric to mid abdominal tenderness. - Related Data Allergies/Adverse Reactions: No Known Allergies Allergy (Verified 03/07/19 20:36) Past Medical History - Social History Frequency of alcohol use: daily Drug Abuse: None - Past Medical History Cardiac Medical History: Denies: Hx Coronary Artery Disease, Hx Hypertension Pulmonary Medical History: Reports: Hx Asthma - as a child, Hx Bronchitis Denies: Hx COPD Neurological Medical History: Denies: Hx Seizures Endocrine Medical History: Denies: Hx Diabetes Mellitus Type 1, Hx Diabetes Mellitus Type 2, Hx Hyperthyroidism, Hx Hypothyroidism Renal/ Medical History: Denies: Hx Peritoneal Dialysis GI Medical History: Denies: Hx Cirrhosis, Hx Crohn's Disease, Hx Hepatitis, Hx Ulcerative Colitis Musculoskeltal Medical History: Denies Hx Arthritis, Denies Hx Gout Skin Medical History: Denies Hx Eczema, Denies Hx Psoriasis Psychiatric Medical History: Reports: Hx Depression Infectious Medical History: Denies: Hx Hepatitis - Immunizations Immunizations up to date: Yes Hx Diphtheria, Pertussis, Tetanus Vaccination: Yes Physical Exam - Vital signs Vitals: Temp Pulse Resp BP Pulse Ox 98.6 F 94 17 135/74 H 98 03/07/19 20:09 03/07/19 20:09 03/07/19 20:09 03/07/19 20:09 03/07/19 20:09 Course - Vital Signs Vital signs: Temp Pulse Resp BP Pulse Ox 98.6 F 94 17 135/74 H 98 03/07/19 20:36 03/07/19 20:09 03/07/19 20:36 03/07/19 20:09 03/07/19 20:36
[2019-03-07 21:44] LABS: APPEARANCE,URINE CLEAR; BILIRUBIN,URINE NEGATIVE (NEGATIVE); COLOR,URINE YELLOW; GLUCOSE, URINE NEGATIVE (NEGATIVE); KETONES,URINE NEGATIVE (NEGATIVE); LEUKOCYTE ESTERASE,URINE NEGATIVE (NEGATIVE); NITRITE,URINE NEGATIVE (NEGATIVE); PROTEIN,URINE NEGATIVE (NEGATIVE); URINE SPECIFIC GRAVITY 1.016
[2019-03-07 21:54] LABS: HEMATOCRIT 37.9 % (37.9-51.0); HEMOGLOBIN 13.6 g/dL (13.5-17.0); MEAN CORPUSCULAR HEMOGLOBIN 34.9 pg (27.0-33.4); MEAN CORPUSCULAR VOLUME 97 fl (80-97); PLATELET COUNT 296 10^3/uL (150-450); RED BLOOD COUNT 3.91 10^6/uL (4.35-5.55); WHITE BLOOD COUNT 5.5 10^3/uL (4.0-10.5)
[2019-03-07 21:58] LABS: ALBUMIN 3.9 g/dL (3.5-5.0); ALKALINE PHOSPHATASE 127 U/L (38-126); ANION GAP 9 (5-19); ASPARTATE AMINO TRANSFERASE 541 U/L (17-59); BILIRUBIN,DIRECT 0.5 mg/dL (0.0-0.4); BILIRUBIN,TOTAL 0.9 mg/dL (0.2-1.3); BLOOD UREA NITROGEN 13 mg/dL (7-20); CALCIUM 8.5 mg/dL (8.4-10.2); CARBON DIOXIDE 31 mmol/L (22-30); CHLORIDE 105 mmol/L (98-107); GLUCOSE 102 mg/dL (75-110); POTASSIUM 4.2 mmol/L (3.6-5.0); TOTAL PROTEIN 7.8 g/dL (6.3-8.2)
[2019-03-07 22:00] LABS: URINE AMPHETAMINES SCREEN NEGATIVE; URINE BARBITURATES SCREEN NEGATIVE; URINE BENZODIAZEPINES SCREEN NEGATIVE; URINE COCAINE SCREEN NEGATIVE; URINE MARIJUANA (THC) SCREEN NEGATIVE; URINE METHADONE SCREEN NEGATIVE; URINE PHENCYCLIDINE SCREEN NEGATIVE
[2019-03-07 22:10] LABS: ALCOHOL 360 mg/dL (NONE DETECTED)
[2019-03-07 22:33] LABS: ABSOLUTE LYMPHOCYTES# (MANUAL) 2.1 10^3/uL (0.5-4.7); ABSOLUTE MONOCYTES # (MANUAL) 0.3 10^3/uL (0.1-1.4); BASOPHILS % (MANUAL) 7 % (0-2); EOSINOPHILS % (MANUAL) 1 % (0-6); LYMPHOCYTES % (MANUAL) 39 % (13-45); MONOCYTES % (MANUAL) 6 % (3-13); SEGMENTED NEUTROPHILS % (MAN) 47 % (42-78); TOTAL CELLS COUNTED 100
[2019-03-07 22:34] LABS: ANISOCYTOSIS SLIGHT; SMUDGE CELLS PRESENT; TEAR DROP CELLS SLIGHT
[2019-03-07 22:35] LABS: PLATELET COMMENT ADEQUATE
== END 2019-03-07 22:24 | disposition left against medical advice (07) ==
LOC: ER 20:02
DX: Z53.21 Procedure and treatment not carried out due to patient leaving prior to being seen by health care provider (principal); F10.129 Alcohol abuse with intoxication, unspecified; R10.9 Unspecified abdominal pain; J45.909 Unspecified asthma, uncomplicated
CPT/HCPCS: 36415; 80053; 80307; 81001; 83690; 85025; 99281

== ENCOUNTER 2019-03-08 02:39 | Emergency (ER) | payer SELFPAY ==
[2019-03-08 03:22] VITALS: BP 142/78
[2019-03-08 04:01] LABS: HEMATOCRIT 38.6 % (37.9-51.0); HEMOGLOBIN 13.3 g/dL (13.5-17.0); MEAN CORPUSCULAR HEMOGLOBIN 33.4 pg (27.0-33.4); MEAN CORPUSCULAR HGB CONC 34.4 g/dL (32.0-36.0); MEAN CORPUSCULAR VOLUME 97 fl (80-97); PLATELET COUNT 293 10^3/uL (150-450); RED BLOOD COUNT 3.97 10^6/uL (4.35-5.55); RED CELL DISTRIBUTION WIDTH 14.7 % (11.5-14.0); WHITE BLOOD COUNT 4.9 10^3/uL (4.0-10.5)
[2019-03-08 04:12] LABS: ALBUMIN 4.1 g/dL (3.5-5.0); ALKALINE PHOSPHATASE 129 U/L (38-126); ANION GAP 12 (5-19); ASPARTATE AMINO TRANSFERASE 589 U/L (17-59); BILIRUBIN,DIRECT 0.4 mg/dL (0.0-0.4); BILIRUBIN,TOTAL 0.9 mg/dL (0.2-1.3); BLOOD UREA NITROGEN 12 mg/dL (7-20); CALCIUM 8.8 mg/dL (8.4-10.2); CARBON DIOXIDE 26 mmol/L (22-30); CHLORIDE 104 mmol/L (98-107); CREATINE KINASE 865 U/L (55-170); GLUCOSE 95 mg/dL (75-110); POTASSIUM 4.2 mmol/L (3.6-5.0)
[2019-03-08 04:24] LABS: CREATINE KINASE MB 14.2 ng/mL (<4.55); TROPONIN I 0.014 ng/mL
[2019-03-08 04:26] LABS: ABSOLUTE LYMPHOCYTES# (MANUAL) 1.5 10^3/uL (0.5-4.7); ABSOLUTE MONOCYTES # (MANUAL) 0.5 10^3/uL (0.1-1.4); ANISOCYTOSIS SLIGHT; BAND NEUTROPHILS % (MANUAL) 1 % (3-5); BASOPHILS % (MANUAL) 0 % (0-2); EOSINOPHILS % (MANUAL) 0 % (0-6); LYMPHOCYTES % (MANUAL) 31 % (13-45); MONOCYTES % (MANUAL) 11 % (3-13); SEGMENTED NEUTROPHILS % (MAN) 57 % (42-78); TOTAL CELLS COUNTED 100
[2019-03-08 04:27] LABS: PLATELET COMMENT ADEQUATE
--- NOTE | 2019-03-08 07:49 | EKG REPORT ---
SEVERITY:- NORMAL ECG - SINUS RHYTHM : Confirmed by: Emerson Dietz MD 08-Mar-2019 07:47:25
[2019-03-08] MEDS ORDERED: ONDANSETRON 4 MG TAB.RAPDIS PO ONE (09:11)
[2019-03-08] MEDS ORDERED: LIDOCAINE 2% VISCOUS SOLN 20 ML UDCUP PO ONE (09:11)
[2019-03-08] MEDS ORDERED: MAG HYDROX/AL HYDROX/SIMETH SUSP 30 ML UDCUP PO ONE (09:11)
--- NOTE | 2019-03-08 10:32 | ER Document Report ---
ED General - General Chief Complaint: Chest Pain Stated Complaint: CHEST PAIN Time Seen by Provider: 03/08/19 09:10 Notes: Mr. Stahl is a 43-year-old male with PMH of alcohol abuse presenting to the ED for chest pain. Patient was triaged and orders were placed prior to my arrival. Patient states the pain is in his epigastrium and nonradiating. He does endorse drinking at least 12 beers possibly more. Patient denies any trouble breathing, fevers or chills, abdominal pain, nausea vomiting or diarrhea. TRAVEL OUTSIDE OF THE [place] IN LAST 30 DAYS: No - Related Data Allergies/Adverse Reactions: No Known Allergies Allergy (Verified 03/07/19 20:36) Home Medications: none Past Medical History - Social History Smoking Status: Never Smoker Chew tobacco use (# tins/day): No Frequency of alcohol use: None Drug Abuse: None Family History: DM. denies: CAD, Hypertension, Malignancy Patient has suicidal ideation: No Patient has homicidal ideation: No - Past Medical History Cardiac Medical History: Denies: Hx Coronary Artery Disease, Hx Hypertension Pulmonary Medical History: Reports: Hx Asthma - as a child, Hx Bronchitis Denies: Hx COPD Neurological Medical History: Denies: Hx Seizures Endocrine Medical History: Denies: Hx Diabetes Mellitus Type 1, Hx Diabetes Mellitus Type 2, Hx Hyperthyroidism, Hx Hypothyroidism Renal/ Medical History: Denies: Hx Peritoneal Dialysis GI Medical History: Denies: Hx Cirrhosis, Hx Crohn's Disease, Hx Hepatitis, Hx Ulcerative Colitis Musculoskeletal Medical History: Denies Hx Arthritis, Denies Hx Gout Skin Medical History: Denies Hx Eczema, Denies Hx Psoriasis Psychiatric Medical History: Reports: Hx Depression Infectious Medical History: Denies: Hx Hepatitis - Immunizations Immunizations up to date: Yes Hx Diphtheria, Pertussis, Tetanus Vaccination: Yes Review of Systems - Review of Systems Constitutional: See HPI EENT: No symptoms reported Cardiovascular: See HPI Respiratory: No symptoms reported Gastrointestinal: See HPI Genitourinary: No symptoms reported Male Genitourinary: No symptoms reported Musculoskeletal: No symptoms reported Skin: No symptoms reported Hematologic/Lymphatic: No symptoms reported Neurological/Psychological: No symptoms reported Physical Exam - Vital signs Vitals: Temp Pulse Resp BP Pulse Ox 98 F 70 14 142/78 H 98 03/08/19 03:20 03/08/19 03:20 03/08/19 03:20 03/08/19 03:20 03/08/19 03:20 Interpretation: Normal - General General appearance: Appears well, Alert - HEENT Head: Normocephalic, Atraumatic Eyes: Normal Pupils: PERRL - Respiratory Respiratory status: No respiratory distress Chest status: Nontender Breath sounds: Normal Chest palpation: Normal - Cardiovascular Rhythm: Regular Heart sounds: Normal auscultation Murmur: No - Abdominal Inspection: Normal Distension: No distension Bowel sounds: Normal Tenderness: Tender - tenderness in the epigastric region. No: McBurney's point, Carbone's sign, Guarding, Rebound Organomegaly: No organomegaly - Back Back: Normal, Nontender - Extremities General upper extremity: Normal inspection, Nontender, Normal color, Normal ROM, Normal temperature General lower extremity: Normal inspection, Nontender, Normal color, Normal ROM, Normal temperature, Normal weight bearing. No: Stepan's sign - Neurological Neuro grossly intact: Yes Cognition: Normal Orientation: AAOx4 [place] Coma Scale Eye Opening: Spontaneous [place] Coma Scale Verbal: Oriented [place] Coma Scale Motor: Obeys Commands [place] Coma Scale Total: 15 Speech: Normal Motor strength normal: LUE, RUE, LLE, RLE Sensory: Normal - Psychological Associated symptoms: Normal affect, Normal mood - Skin Skin Temperature: Warm Skin Moisture: Dry Skin Color: Normal Course - Re-evaluation Re-evalutation: Patient is generally well-appearing and nontoxic. Initial vitals within normal limits. EKG nonischemic. CBC within normal limits. CMP shows elevations of AST in comparison to ALT, consistent with EtOH abuse. Delta tropes are unremarkable. Chest x-ray also within normal limits. At 945, the nurse indicated the patient was awake, ambulating with a steady gait and requesting food. He states that the GI cocktail significantly helped his epigastric/chest pain. 03/08/19 10:31 Per nursing staff, the patient eloped from the department at around 1015. However I did not get the opportunity to discuss with the patient that his CK is elevated. Patient was taking fluids by mouth but did not get IV fluids overnight. Patient eloped from the department before I was able to discuss this with him. - Vital Signs Vital signs: Temp Pulse Resp BP Pulse Ox 98 F 70 14 142/78 H 98 03/08/19 03:20 03/08/19 03:20 03/08/19 03:20 03/08/19 03:20 03/08/19 03:20 - Laboratory Result Diagrams: 03/08/19 03:40 03/08/19 03:40 Laboratory results interpreted by me: 03/08/19 03/08/19 03/08/19 03:40 03:40 03:40 RBC 3.97 L Hgb 13.3 L RDW 14.7 H Band Neutrophils % 1 L AST 589 H Alkaline Phosphatase 129 H Creatine Kinase 865 H CK-MB (CK-2) 14.20 H Serum Alcohol 03/08/19 03:40 RBC Hgb RDW Band Neutrophils % AST Alkaline Phosphatase Creatine Kinase CK-MB (CK-2) Serum Alcohol 350 H* - EKG Interpretation by Me EKG shows normal: Sinus rhythm, [place], QRS Complexes, ST-T Waves Rate: Normal Rhythm: NSR Discharge - Discharge Clinical Impression: Alcohol intoxication Qualifiers: Complication of substance-induced condition: uncomplicated Qualified Code(s): F10.920 - Alcohol use, unspecified with intoxication, uncomplicated Alcoholic gastritis Qualifiers: Chronicity: chronic Gastritis bleeding: presence of bleeding unspecified Qualified Code(s): K29.20 - Alcoholic gastritis without bleeding Condition: Good Disposition: ELOPED
== END 2019-03-08 10:15 | disposition left against medical advice (07) ==
LOC: ER 02:39
DX: K29.20 Alcoholic gastritis without bleeding (principal); F10.120 Alcohol abuse with intoxication, uncomplicated; R10.13 Epigastric pain; R10.816 Epigastric abdominal tenderness; R07.9 Chest pain, unspecified; Z53.20 Procedure and treatment not carried out because of patient's decision for unspecified reasons
CPT/HCPCS: 93005; 99285; 36415; 82553; 80307; 82550; 85025; 80053; 84484; 93010; S0119; J3490

== ENCOUNTER 2019-03-08 20:44 | Emergency (ER) | payer SELFPAY ==
--- NOTE | 2019-03-08 21:00 | ER Document Report ---
ED Medical Screen (RME) - General Chief Complaint: Abdominal Pain Stated Complaint: ABDOMINAL PAIN Time Seen by Provider: 03/08/19 20:58 Mode of Arrival: Ambulatory Information source: Patient Notes: This 43-year-old male with history of EtOH abuse presents emergency department with complaints of abdominal pain. Patient is a frequent visitor to our emergency department for same symptoms. Reports his last drink was 4 hours ago patient appears to be intoxicated. I have greeted and performed a rapid initial assessment of this patient. A comprehensive ED assessment and evaluation of the patient, analysis of test results and completion of the medical decision making process will be conducted by additional ED providers. Dictation of this chart was performed using voice recognition software; therefore, there may be some unintended grammatical errors. TRAVEL OUTSIDE OF THE [place] IN LAST 30 DAYS: No - Related Data Allergies/Adverse Reactions: No Known Allergies Allergy (Verified 03/07/19 20:36) Past Medical History - Social History Frequency of alcohol use: Heavy - Past Medical History Cardiac Medical History: Denies: Hx Coronary Artery Disease, Hx Hypertension Pulmonary Medical History: Reports: Hx Asthma - as a child, Hx Bronchitis Denies: Hx COPD Neurological Medical History: Denies: Hx Seizures Endocrine Medical History: Denies: Hx Diabetes Mellitus Type 1, Hx Diabetes Mellitus Type 2, Hx Hyperthyroidism, Hx Hypothyroidism Renal/ Medical History: Denies: Hx Peritoneal Dialysis GI Medical History: Denies: Hx Cirrhosis, Hx Crohn's Disease, Hx Hepatitis, Hx Ulcerative Colitis Musculoskeltal Medical History: Denies Hx Arthritis, Denies Hx Gout Skin Medical History: Denies Hx Eczema, Denies Hx Psoriasis Psychiatric Medical History: Reports: Hx Depression Infectious Medical History: Denies: Hx Hepatitis - Immunizations Immunizations up to date: Yes Hx Diphtheria, Pertussis, Tetanus Vaccination: Yes Physical Exam - Vital signs Vitals: Temp Pulse Resp BP Pulse Ox 97.8 F 92 17 133/77 H 100 03/08/19 20:49 03/08/19 20:49 03/08/19 20:49 03/08/19 20:49 03/08/19 20:49 Course - Vital Signs Vital signs: Temp Pulse Resp BP Pulse Ox 97.8 F 92 17 133/77 H 100 03/08/19 20:51 03/08/19 20:49 03/08/19 20:51 03/08/19 20:49 03/08/19 20:51
[2019-03-08 21:28] LABS: APPEARANCE,URINE CLEAR; BILIRUBIN,URINE NEGATIVE (NEGATIVE); COLOR,URINE YELLOW; GLUCOSE, URINE NEGATIVE (NEGATIVE); KETONES,URINE NEGATIVE (NEGATIVE); LEUKOCYTE ESTERASE,URINE NEGATIVE (NEGATIVE); NITRITE,URINE NEGATIVE (NEGATIVE); PROTEIN,URINE NEGATIVE (NEGATIVE); URINE SPECIFIC GRAVITY 1.012
[2019-03-08 21:33] LABS: HEMATOCRIT 39.4 % (37.9-51.0); MEAN CORPUSCULAR HEMOGLOBIN 34.7 pg (27.0-33.4); MEAN CORPUSCULAR HGB CONC 35.6 g/dL (32.0-36.0); MEAN CORPUSCULAR VOLUME 97 fl (80-97); PLATELET COUNT 294 10^3/uL (150-450); RED BLOOD COUNT 4.04 10^6/uL (4.35-5.55); RED CELL DISTRIBUTION WIDTH 14.7 % (11.5-14.0); WHITE BLOOD COUNT 4.5 10^3/uL (4.0-10.5)
[2019-03-08 21:37] LABS: ALBUMIN 4.1 g/dL (3.5-5.0); ALKALINE PHOSPHATASE 134 U/L (38-126); AMYLASE 174 U/L (30-110); ANION GAP 12 (5-19); ASPARTATE AMINO TRANSFERASE 705 U/L (17-59); BILIRUBIN,DIRECT 0.6 mg/dL (0.0-0.4); BILIRUBIN,TOTAL 1.1 mg/dL (0.2-1.3); BLOOD UREA NITROGEN 15 mg/dL (7-20); CALCIUM 8.5 mg/dL (8.4-10.2); CARBON DIOXIDE 29 mmol/L (22-30); CHLORIDE 103 mmol/L (98-107); GLUCOSE 99 mg/dL (75-110); POTASSIUM 4.2 mmol/L (3.6-5.0); TOTAL PROTEIN 7.9 g/dL (6.3-8.2)
[2019-03-08 21:51] LABS: ALCOHOL 372 mg/dL (NONE DETECTED)
[2019-03-08 21:55] LABS: ABSOLUTE MONOCYTES # (MANUAL) 0.7 10^3/uL (0.1-1.4); ANISOCYTOSIS SLIGHT; BASOPHILS % (MANUAL) 0 % (0-2); EOSINOPHILS % (MANUAL) 5 % (0-6); LYMPHOCYTES % (MANUAL) 44 % (13-45); MONOCYTES % (MANUAL) 16 % (3-13); SEGMENTED NEUTROPHILS % (MAN) 35 % (42-78); TOTAL CELLS COUNTED 100
[2019-03-08 21:56] LABS: PLATELET COMMENT ADEQUATE
[2019-03-09] MEDS ORDERED: NORMAL SALINE 1000 ML 1,000 ML IV ONE (04:48)
[2019-03-09] MEDS ORDERED: DICYCLOMINE HCL INJ 20 MG/2 ML AMPULE IM ONE (04:48)
--- NOTE | 2019-03-09 05:43 | ER Document Report ---
ED General - General Chief Complaint: Abdominal Pain Stated Complaint: ABDOMINAL PAIN Time Seen by Provider: 03/08/19 20:58 Primary Care Provider: FLORIN MIRZA MD [COMMUNITY BASED STAFF] - Follow up in 3-5 days Mode of Arrival: Ambulatory Notes: 43-year-old male presents with generalized abdominal pain for 3 days. Patient admits to drinking alcohol. Patient denies any nausea/vomiting, fevers, chest pain, dyspnea, or urinary symptoms.. TRAVEL OUTSIDE OF THE [place] IN LAST 30 DAYS: No - Related Data Allergies/Adverse Reactions: No Known Allergies Allergy (Verified 03/07/19 20:36) Past Medical History - General Information source: Patient - Social History Smoking Status: Current Every Day Smoker Frequency of alcohol use: Heavy Family History: DM. denies: CAD, Hypertension, Malignancy Patient has suicidal ideation: No Patient has homicidal ideation: No - Past Medical History Cardiac Medical History: Denies: Hx Coronary Artery Disease, Hx Hypertension Pulmonary Medical History: Reports: Hx Asthma - as a child, Hx Bronchitis Denies: Hx COPD Neurological Medical History: Denies: Hx Seizures Endocrine Medical History: Denies: Hx Diabetes Mellitus Type 1, Hx Diabetes Mellitus Type 2, Hx Hyperthyroidism, Hx Hypothyroidism Renal/ Medical History: Denies: Hx Peritoneal Dialysis GI Medical History: Denies: Hx Cirrhosis, Hx Crohn's Disease, Hx Hepatitis, Hx Ulcerative Colitis Musculoskeletal Medical History: Denies Hx Arthritis, Denies Hx Gout Skin Medical History: Denies Hx Eczema, Denies Hx Psoriasis Psychiatric Medical History: Reports: Hx Depression Infectious Medical History: Denies: Hx Hepatitis - Immunizations Immunizations up to date: Yes Hx Diphtheria, Pertussis, Tetanus Vaccination: Yes Review of Systems - Review of Systems Notes: Constitutional: Negative for fever. HENT: Negative for sore throat. Eyes: Negative for visual changes. Cardiovascular: Negative for chest pain. Respiratory: Negative for shortness of breath. Gastrointestinal: Positive for abdominal pain. Negative for vomiting or diarrhea. Genitourinary: Negative for dysuria. Musculoskeletal: Negative for back pain. Skin: Negative for rash. Neurological: Negative for headaches, weakness or numbness. 10 point ROS negative except as marked above and in HPI. Physical Exam - Vital signs Vitals: Temp Pulse Resp BP Pulse Ox 97.8 F 92 17 133/77 H 100 03/08/19 20:49 03/08/19 20:49 03/08/19 20:49 03/08/19 20:49 03/08/19 20:49 - Notes Notes: GENERAL: Well-appearing, well-nourished and in no acute distress. HEAD: Atraumatic, normocephalic. EYES: Extraocular movements intact, sclera anicteric, conjunctiva are normal. NECK: Normal range of motion, supple without lymphadenopathy or JVD. ABDOMEN: Soft, nontender. No guarding, no rebound. No masses appreciated. EXTREMITIES: Normal range of motion, no pitting or edema. No clubbing or cyanosis. NEUROLOGICAL: Cranial nerves II through XII grossly intact. Normal speech, normal gait. PSYCH: Normal mood, normal affect. SKIN: Warm, Dry, normal turgor, no rashes or lesions noted. Course - Re-evaluation Re-evalutation: 03/09/19 43-year-old male presents for generalized abdominal pain for 3 days. Work-up was initiated. Labs show elevated liver enzymes which is consistent with patient's chronic alcohol abuse. Patient is nontoxic, well-appearing. Abdomen soft nontender. Patient was given IM Bentyl with improvement in pain. Patient is p.o. tolerant. Discussed all results with patient. Prescription for Bentyl given. Patient given close follow-up with PCP. Return precautions given. All questions/concerns addressed prior to discharge. - Vital Signs Vital signs: Temp Pulse Resp BP Pulse Ox 98.1 F 78 18 122/66 97 03/09/19 05:42 03/09/19 05:42 03/09/19 05:42 03/09/19 05:42 03/09/19 05:42 - Laboratory Result Diagrams: 03/08/19 21:10 03/08/19 21:10 Laboratory results interpreted by me: 03/08/19 03/08/19 03/08/19 21:10 21:10 21:10 RBC 4.04 L MCH 34.7 H RDW 14.7 H Seg Neuts % (Manual) 35 L Monocytes % (Manual) 16 H Abs Neuts (Manual) 1.6 L Direct Bilirubin 0.6 H AST 705 H Alkaline Phosphatase 134 H Amylase 174 H Lipase 451.0 H Urine Urobilinogen 2.0 H Serum Alcohol 372 H* Discharge - Discharge Clinical Impression: Abdominal pain Qualifiers: Abdominal location: generalized Qualified Code(s): R10.84 - Generalized ab dominal pain Alcohol intoxication Qualifiers: Complication of substance-induced condition: uncomplicated Qualified Code(s): F10.920 - Alcohol use, unspecified with intoxication, uncomplicated Condition: Stable Disposition: HOME, SELF-CARE Instructions: Abdominal Pain ([facility]) Additional Instructions: Please take Bentyl as prescribed. Please follow-up with clinic listed in 3 to 5 days. Return to ER for any worsening symptoms, including increased abdominal pain, nausea/vomiting, fevers, diarrhea/constipation, chest pain, shortness of breath, or any other symptoms that are concerning to you. Prescriptions: Dicyclomine HCl [Bentyl 20 mg Tablet] 20 mg PO QID #40 tablet Referrals: FLORIN MIRZA MD [COMMUNITY BASED STAFF] - Follow up in 3-5 days
[2019-03-09 05:53] VITALS: BP 122/66
== END 2019-03-09 05:53 | disposition home or self-care (01) ==
LOC: ER 20:44
DX: R10.84 Generalized abdominal pain (principal); F10.120 Alcohol abuse with intoxication, uncomplicated; R74.8 Abnormal levels of other serum enzymes; F17.200 Nicotine dependence, unspecified, uncomplicated
CPT/HCPCS: 99284; 96374; 36415; 80307; 82150; 83690; 87070; 81001; J0500

== ENCOUNTER 2019-03-09 20:14 | Emergency (ER) | payer SELFPAY ==
--- NOTE | 2019-03-09 22:03 | ER Document Report ---
ED Medical Screen (RME) - General Chief Complaint: ETOH Abuse Stated Complaint: ETOH,ALTERED/NAUSEA/VOMITING Time Seen by Provider: 03/09/19 22:00 Mode of Arrival: Medic Information source: Emergency Med Personnel Notes: This 43-year-old male presents emergency department via EMS for reports that he was vomiting at [facility]. Patient has a history of EtOH abuse. Patient seems to be intoxicated not answering my questions. I have greeted and performed a rapid initial assessment of this patient. A comprehensive ED assessment and evaluation of the patient, analysis of test results and completion of the medical decision making process will be conducted by additional ED providers. Dictation of this chart was performed using voice recognition software; therefore, there may be some unintended grammatical errors. TRAVEL OUTSIDE OF THE [place] IN LAST 30 DAYS: No - Related Data Allergies/Adverse Reactions: No Known Allergies Allergy (Verified 03/07/19 20:36) Past Medical History - Past Medical History Cardiac Medical History: Denies: Hx Coronary Artery Disease, Hx Hypertension Pulmonary Medical History: Reports: Hx Asthma - as a child, Hx Bronchitis Denies: Hx COPD Neurological Medical History: Denies: Hx Seizures Endocrine Medical History: Denies: Hx Diabetes Mellitus Type 1, Hx Diabetes Mellitus Type 2, Hx Hyperthyroidism, Hx Hypothyroidism Renal/ Medical History: Denies: Hx Peritoneal Dialysis GI Medical History: Denies: Hx Cirrhosis, Hx Crohn's Disease, Hx Hepatitis, Hx Ulcerative Colitis Musculoskeltal Medical History: Denies Hx Arthritis, Denies Hx Gout Skin Medical History: Denies Hx Eczema, Denies Hx Psoriasis Psychiatric Medical History: Reports: Hx Depression Infectious Medical History: Denies: Hx Hepatitis - Immunizations Immunizations up to date: Yes Hx Diphtheria, Pertussis, Tetanus Vaccination: Yes Physical Exam - Vital signs Vitals: Temp Pulse Resp BP Pulse Ox 98.5 F 86 12 117/72 99 03/09/19 20:42 03/09/19 20:42 03/09/19 20:42 03/09/19 20:42 03/09/19 20:42 Course - Vital Signs Vital signs: Temp Pulse Resp BP Pulse Ox 98.5 F 86 12 117/72 99 03/09/19 20:42 03/09/19 20:42 03/09/19 20:42 03/09/19 20:42 03/09/19 20:42
[2019-03-09 23:12] LABS: HEMATOCRIT 40.5 % (37.9-51.0); HEMOGLOBIN 13.9 g/dL (13.5-17.0); MEAN CORPUSCULAR HEMOGLOBIN 33.2 pg (27.0-33.4); MEAN CORPUSCULAR HGB CONC 34.2 g/dL (32.0-36.0); MEAN CORPUSCULAR VOLUME 97 fl (80-97); PLATELET COUNT 224 10^3/uL (150-450); RED BLOOD COUNT 4.18 10^6/uL (4.35-5.55); WHITE BLOOD COUNT 5.8 10^3/uL (4.0-10.5)
[2019-03-09 23:23] LABS: ALBUMIN 4.1 g/dL (3.5-5.0); ALKALINE PHOSPHATASE 144 U/L (38-126); ANION GAP 14 (5-19); ASPARTATE AMINO TRANSFERASE 733 U/L (17-59); BILIRUBIN,DIRECT 0.7 mg/dL (0.0-0.4); BILIRUBIN,TOTAL 1.3 mg/dL (0.2-1.3); BLOOD UREA NITROGEN 14 mg/dL (7-20); CALCIUM 8.3 mg/dL (8.4-10.2); CARBON DIOXIDE 23 mmol/L (22-30); CHLORIDE 108 mmol/L (98-107); GLUCOSE 135 mg/dL (75-110); POTASSIUM 4.1 mmol/L (3.6-5.0); TOTAL PROTEIN 8.1 g/dL (6.3-8.2)
[2019-03-09 23:37] LABS: ABSOLUTE MONOCYTES # (MANUAL) 0.1 10^3/uL (0.1-1.4); BASOPHILS % (MANUAL) 0 % (0-2); EOSINOPHILS % (MANUAL) 3 % (0-6); LYMPHOCYTES % (MANUAL) 51 % (13-45); MONOCYTES % (MANUAL) 2 % (3-13); SEGMENTED NEUTROPHILS % (MAN) 44 % (42-78); TOTAL CELLS COUNTED 100
[2019-03-09 23:38] LABS: ANISOCYTOSIS SLIGHT; PLATELET COMMENT ADEQUATE
[2019-03-10 00:01] VITALS: BP 119/78
--- NOTE | 2019-03-10 02:51 | ER Document Report ---
ED General - General Chief Complaint: ETOH Abuse Stated Complaint: ETOH,ALTERED/NAUSEA/VOMITING Time Seen by Provider: 03/09/19 22:00 Mode of Arrival: Medic Notes: 43-year-old male presents for alcohol abuse. Patient states he "drank a few beers tonight." Patient's initial alcohol level was 458 tonight. Patient is easily arousable. Patient is complaining of mild abdominal pain and nausea. Patient denies any other complaints tonight. TRAVEL OUTSIDE OF THE [place] IN LAST 30 DAYS: No - Related Data Allergies/Adverse Reactions: No Known Allergies Allergy (Verified 03/07/19 20:36) Past Medical History - General Information source: Emergency Med Personnel - Social History Smoking Status: Current Every Day Smoker Frequency of alcohol use: Heavy Family History: DM. denies: CAD, Hypertension, Malignancy Patient has suicidal ideation: No Patient has homicidal ideation: No - Past Medical History Cardiac Medical History: Denies: Hx Coronary Artery Disease, Hx Hypertension Pulmonary Medical History: Reports: Hx Asthma - as a child, Hx Bronchitis Denies: Hx COPD Neurological Medical History: Denies: Hx Seizures Endocrine Medical History: Denies: Hx Diabetes Mellitus Type 1, Hx Diabetes Mellitus Type 2, Hx Hyperthyroidism, Hx Hypothyroidism Renal/ Medical History: Denies: Hx Peritoneal Dialysis GI Medical History: Denies: Hx Cirrhosis, Hx Crohn's Disease, Hx Hepatitis, Hx Ulcerative Colitis Musculoskeletal Medical History: Denies Hx Arthritis, Denies Hx Gout Skin Medical History: Denies Hx Eczema, Denies Hx Psoriasis Psychiatric Medical History: Reports: Hx Depression Infectious Medical History: Denies: Hx Hepatitis - Immunizations Immunizations up to date: Yes Hx Diphtheria, Pertussis, Tetanus Vaccination: Yes Review of Systems - Review of Systems Notes: Constitutional: Negative for fever. HENT: Negative for sore throat. Eyes: Negative for visual changes. Cardiovascular: Negative for chest pain. Respiratory: Negative for shortness of breath. Gastrointestinal: Positive for abdominal pain. Negative for vomiting or di arrhea. Genitourinary: Negative for dysuria. Musculoskeletal: Negative for back pain. Skin: Negative for rash. Neurological: Negative for headaches, weakness or numbness. 10 point ROS negative except as marked above and in HPI. Physical Exam - Vital signs Vitals: Temp Pulse Resp BP Pulse Ox 98.5 F 86 12 117/72 99 03/09/19 20:42 03/09/19 20:42 03/09/19 20:42 03/09/19 20:42 03/09/19 20:42 - Notes Notes: GENERAL: Well-appearing, well-nourished and in no acute distress. HEAD: Atraumatic, normocephalic. EYES: Extraocular movements intact, sclera anicteric, conjunctiva are normal. NECK: Normal range of motion, supple without lymphadenopathy or JVD. ABDOMEN: Soft, nontender. No guarding, no rebound. No masses appreciated. EXTREMITIES: Normal range of motion, no pitting or edema. No clubbing or cyanosis. NEUROLOGICAL: Cranial nerves II through XII grossly intact. Normal speech, normal gait. PSYCH: Normal mood, normal affect. SKIN: Warm, Dry, normal turgor, no rashes or lesions noted. Course - Re-evaluation Re-evalutation: 03/10/19 43-year-old male presents for alcohol abuse. Patient is well-known to this ER. Patient's initial alcohol level was 458. Other labs were at baseline/unremarkable. Patient is easily arousable. Abdomen is soft nontender. PE is otherwise unremarkable. 03/10/19 03:49 Pt is able to ambulate to bathroom and throughout hallway without difficulty or assistance. Pt's repeat alcohol improved. Review of records show that pt is usually in 300s. Pt to be discharged home. - Vital Signs Vital signs: Temp Pulse Resp BP Pulse Ox 97.2 F 84 14 119/78 100 03/09/19 23:58 03/09/19 23:58 03/09/19 23:58 03/09/19 23:58 03/09/19 23:58 - Laboratory Result Diagrams: 03/09/19 22:10 03/09/19 22:10 Laboratory results interpreted by me: 03/09/19 03/09/19 03/10/19 22:10 22:10 02:49 RBC 4.18 L RDW 15.0 H Lymphocytes % (Manual) 51 H Monocytes % (Manual) 2 L Chloride 108 H Glucose 135 H Calcium 8.3 L Direct Bilirubin 0.7 H AST 733 H Alkaline Phosphatase 144 H Serum Alcohol 458 H* 390 H* Discharge - Discharge Clinical Impression: Chronic alcohol abuse Condition: Stable Disposition: HOME, SELF-CARE Instructions: Acute Alcohol Intoxication ([facility]), Chronic Alcoholism ([facility]) Additional Instructions: Please follow-up with [facility]. Please return to ER for any worsening symptoms, including nausea/vomiting, abdominal pain, fevers, chest pain, shortness of breath, seizures, or any other symptoms that are concerning to you.
[2019-03-10 06:14] LABS: ALCOHOL 458 mg/dL (NONE DETECTED)
== END 2019-03-10 04:28 | disposition home or self-care (01) ==
LOC: ER 20:14
DX: F10.10 Alcohol abuse, uncomplicated (principal); R11.2 Nausea with vomiting, unspecified; R41.82 Altered mental status, unspecified; R10.9 Unspecified abdominal pain; F17.200 Nicotine dependence, unspecified, uncomplicated
CPT/HCPCS: 36415; 80053; 80307; 85025; 99284

== ENCOUNTER 2019-04-20 22:03 | Emergency (ER) | payer SELFPAY ==
[2019-04-20 22:51] LABS: HEMATOCRIT 34.6 % (37.9-51.0); HEMOGLOBIN 12.4 g/dL (13.5-17.0); MEAN CORPUSCULAR HEMOGLOBIN 33.5 pg (27.0-33.4); MEAN CORPUSCULAR HGB CONC 35.8 g/dL (32.0-36.0); MEAN CORPUSCULAR VOLUME 94 fl (80-97); PLATELET COUNT 185 10^3/uL (150-450); RED CELL DISTRIBUTION WIDTH 13.5 % (11.5-14.0); WHITE BLOOD COUNT 7.9 10^3/uL (4.0-10.5)
[2019-04-20 23:07] LABS: ALBUMIN 3.8 g/dL (3.5-5.0); ALKALINE PHOSPHATASE 79 U/L (38-126); ANION GAP 10 (5-19); ASPARTATE AMINO TRANSFERASE 38 U/L (17-59); BLOOD UREA NITROGEN 14 mg/dL (7-20); CALCIUM 8.4 mg/dL (8.4-10.2); CARBON DIOXIDE 25 mmol/L (22-30); CHLORIDE 106 mmol/L (98-107); GLUCOSE 111 mg/dL (75-110); POTASSIUM 4.2 mmol/L (3.6-5.0)
--- NOTE | 2019-04-20 23:07 | RADIOLOGY REPORT (SQ) ---
EXAM DESCRIPTION: AP portable chest radiograph CLINICAL HISTORY: 43 years Male, chest pain COMPARISON: Portable view of the chest 03/05/2019 FINDINGS: Lungs: Lungs are clear. No pneumonia or edema. No pneumothorax or pleural effusion. Mediastinum: Cardiac and mediastinal silhouette are normal. Bones: Osseous structures are normal. IMPRESSION: No acute process. No significant interval change.
[2019-04-20 23:08] LABS: BILIRUBIN,TOTAL 0.4 mg/dL (0.2-1.3); CREATINE KINASE 603 U/L (55-170)
[2019-04-20 23:23] LABS: CREATINE KINASE MB 7.69 ng/mL (<4.55)
[2019-04-20 23:24] LABS: TROPONIN I < 0.012 ng/mL
[2019-04-20 23:29] LABS: ABSOLUTE LYMPHOCYTES# (MANUAL) 2.5 10^3/uL (0.5-4.7); ABSOLUTE MONOCYTES # (MANUAL) 0.9 10^3/uL (0.1-1.4); BASOPHILS % (MANUAL) 0 % (0-2); EOSINOPHILS % (MANUAL) 3 % (0-6); LYMPHOCYTES % (MANUAL) 32 % (13-45); MONOCYTES % (MANUAL) 11 % (3-13); PLATELET COMMENT ADEQUATE; RBC MORPHOLOGY COMMENT NORMO-CYTIC/CHROMIC; SEGMENTED NEUTROPHILS % (MAN) 54 % (42-78); TOTAL CELLS COUNTED 100
[2019-04-21] MEDS ORDERED: NORMAL SALINE 1000 ML 1,000 ML IV ONE (01:30)
--- NOTE | 2019-04-21 01:30 | ER Document Report ---
ED Cardiac - General Chief Complaint: Chest Pain Stated Complaint: CHEST PAIN Time Seen by Provider: 04/21/19 01:21 Notes: Patient is a 43-year-old male who presents to the emergency department with a chief complaint of chest pain. He states that his pain has been going on for the past week. Patient is homeless. He states that the pain is in the middle of his chest. Patient is an everyday drinker. He states that he drinks wine. He cannot tell me the amount of wine he drinks, but states that he drinks "a lot." Patient denies any past medical history. Denies any vomiting or nausea. Denies any diarrhea. TRAVEL OUTSIDE OF THE [place] IN LAST 30 DAYS: No - Related Data Allergies/Adverse Reactions: No Known Allergies Allergy (Verified 03/07/19 20:36) Past Medical History - General Information source: Patient - Social History Smoking Status: Never Smoker Chew tobacco use (# tins/day): No Frequency of alcohol use: Heavy Family History: DM. denies: CAD, Hypertension, Malignancy Patient has suicidal ideation: No Patient has homicidal ideation: No - Past Medical History Cardiac Medical History: Denies: Hx Coronary Artery Disease, Hx Hypertension Pulmonary Medical History: Reports: Hx Asthma - as a child, Hx Bronchitis Denies: Hx COPD Neurological Medical History: Denies: Hx Seizures Endocrine Medical History: Denies: Hx Diabetes Mellitus Type 1, Hx Diabetes Mellitus Type 2, Hx Hyperthyroidism, Hx Hypothyroidism Renal/ Medical History: Denies: Hx Peritoneal Dialysis GI Medical History: Denies: Hx Cirrhosis, Hx Crohn's Disease, Hx Hepatitis, Hx Ulcerative Colitis Musculoskeletal Medical History: Denies Hx Arthritis, Denies Hx Gout Skin Medical History: Denies Hx Eczema, Denies Hx Psoriasis Psychiatric Medical History: Reports: Hx Depression Infectious Medical History: Denies: Hx Hepatitis - Immunizations Immunizations up to date: Yes Hx Diphtheria, Pertussis, Tetanus Vaccination: Yes Review of Systems - Review of Systems Notes: REVIEW OF SYSTEMS: CONSTITUTIONAL : Denies recent illness. Denies recent unintentional weight loss. Denies fever, chills, or sweats. EENT: Denies eye, ear, throat, or mouth pain, discharge, or symptoms. Denies nasal or sinus congestion. CARDIOVASCULAR: See HPI. RESPIRATORY: Denies shortness of breath, cough, congestion, difficulty breathing, or wheezing. GASTROINTESTINAL: Denies nausea, vomiting, and diarrhea. Denies abdominal pain. Denies constipation. GENITOURINARY: Denies difficulty urinating, burning, blood in urine, urgency or frequency. MUSCULOSKELETAL: Denies neck and back pain. Denies joint pain or swelling. SKIN: Denies rash, itchiness, or lesions HEMATOLOGIC : Denies easy bruising or bleeding. LYMPHATIC: Denies swollen, painful, enlarged glands. NEUROLOGICAL: Denies no numbness or tingling denies weakness. Denies headache. Denies altered mental status. Denies alteration in speech. PSYCHIATRIC: Denies stress, anxiety, alteration in sleep patterns, or depression. All other systems reviewed and negative. Physical Exam - Vital signs Vitals: Temp Resp Pulse Ox 98.9 F 12 92 04/20/19 22:08 04/20/19 22:08 04/20/19 22:08 - Notes Notes: PHYSICAL EXAMINATION: GENERAL: Appears well, healthy, well-nourished, no acute distress. HEAD: Normocephalic, atraumatic. EYES: PERRL, conjunctiva normal, all extraocular movements intact, sclera nonicteric ENT: Moist mucous membranes. NECK: Supple, no noticeable swelling, redness, rash. Normal range of motion. LUNGS: Equal breath sounds bilaterally and clear to auscultation. No wheezes rales or rhonchi. CARDIOVASCULAR: S1-S2, regular rate, regular rhythm. Radial pulses 2+, normal. ABDOMEN: Normoactive bowel sounds. Soft, nontender, no guarding, no rebound tenderness, and no masses palpated. EXTREMITIES: Normal strength and range of motion, no pitting or edema. No cyanosis. NEUROLOGICAL: Moves all extremities upon command. Strength 5/5 in all extremities. PSYCH: Normal mood, normal affect. SKIN: Warm, dry. No rash, lesions, ulcerations noted. Normal skin turgor. Course - Re-evaluation Re-evalutation: 04/21/19 02:45 Patient's hematology shows a hemoglobin of 12.4 and hematocrit of 34.6. Patient's chemistries show a CK of 603. He received a liter of fluids here in the emergency department. His lipase is unremarkable. His troponin is negative. The second troponin is pending, but the analyzer machine in the lab is broken at this time. This order was placed by the primary nurse under a protocol order. I have very low suspicion for an acute SD, as the patient has low risk factors and the patient has been having chest pain for the past week. Patient is an alcoholic and I referred him to [place] [facility]. He states that he may go there if he feels like he needs to go. At this time, the patient is stable for discharge. Follow-up precautions were given. Verbal discharge instructions were given to the patient. They verbalized understanding. They are stable for discharge. - Vital Signs Vital signs: Temp Pulse Resp BP Pulse Ox 97.9 F 13 115/79 98 04/21/19 01:23 04/21/19 01:01 04/21/19 01:01 04/21/19 01:01 - Laboratory Result Diagrams: 04/20/19 22:40 04/20/19 22:40 Laboratory results interpreted by me: 04/20/19 04/20/19 04/20/19 22:40 22:40 22:40 RBC 3.70 L Hgb 12.4 L Hct 34.6 L MCH 33.5 H Glucose 111 H Creatine Kinase 603 H CK-MB (CK-2) 7.69 H - EKG Interpretation by Me Additional EKG results interpreted by me: 04/21/19 02:46 Sinus rhythm. Rate 95. OR 176; QRS 90; QT 340; QTc 428. No ST elevations or depressions noted. Discharge - Discharge Clinical Impression: Alcohol abuse, Dehydration Chest pain Qualifiers: Chest pain type: unspecified Qualified Code(s): R07.9 - Chest pain, unspecified Condition: Stable Disposition: HOME, SELF-CARE Additional Instructions: You were seen today in the emergency department for chest pain. Your chest pain is caused by dehydration. You are rehydrated here in the emergency department. If you would like to get help with your alcohol abuse, you can go to [facility]. [facility] [address] [place] [address]
[2019-04-21 03:16] VITALS: BP 141/82
--- NOTE | 2019-04-22 09:50 | EKG REPORT ---
SEVERITY:- NORMAL ECG - SINUS RHYTHM : Confirmed by: Vanessa Jacobs 22-Apr-2019 09:49:54
== END 2019-04-21 03:16 | disposition home or self-care (01) ==
LOC: ER 22:03
DX: R07.9 Chest pain, unspecified (principal); F10.10 Alcohol abuse, uncomplicated; E86.0 Dehydration; Z59.0 Homelessness
CPT/HCPCS: 93005; 99285; 96360; 96361; 36415; 82553; 82550; 83690; 85025; 80053; 84484; 71045; 93010; J7030

== ENCOUNTER 2019-04-22 07:41 | Emergency (ER) | payer SELFPAY ==
[2019-04-22 09:18] LABS: ABSOLUTE BASOPHILS # (AUTO) 0.1 10^3/uL (0.0-0.2); ABSOLUTE EOSINOPHILS # (AUTO) 0.3 10^3/uL (0.0-0.6); ABSOLUTE MONOCYTES (AUTO) 0.9 10^3/uL (0.1-1.4); ABSOLUTE NEUT (AUTO) 3.7 10^3/uL (1.7-8.2); BASOPHILS % (AUTO) 1.3 % (0-2); EOSINOPHILS % (AUTO) 3.5 % (0-6); HEMATOCRIT 42.6 % (37.9-51.0); LYMPHOCYTES % (AUTO) 37.6 % (13-45); MEAN CORPUSCULAR HEMOGLOBIN 32.7 pg (27.0-33.4); MEAN CORPUSCULAR HGB CONC 34.4 g/dL (32.0-36.0); MEAN CORPUSCULAR VOLUME 95 fl (80-97); MONOCYTES % (AUTO) 11.2 % (3-13); PLATELET COUNT 205 10^3/uL (150-450); RED BLOOD COUNT 4.47 10^6/uL (4.35-5.55); RED CELL DISTRIBUTION WIDTH 13.4 % (11.5-14.0); SEGMENTED NEUTROPHILS % (AUTO) 46.4 % (42-78); TOTAL CELLS COUNTED % (AUTO) 100 %; WHITE BLOOD COUNT 8.1 10^3/uL (4.0-10.5)
[2019-04-22 09:20] LABS: HEMOGLOBIN 14.6 g/dL (13.5-17.0)
[2019-04-22 09:42] LABS: CREATINE KINASE MB 7.99 ng/mL (<4.55)
[2019-04-22 09:44] LABS: TROPONIN I < 0.012 ng/mL
[2019-04-22 09:50] LABS: ALBUMIN 4.2 g/dL (3.5-5.0); ALKALINE PHOSPHATASE 59 U/L (38-126); ANION GAP 11 (5-19); ASPARTATE AMINO TRANSFERASE 71 U/L (17-59); BILIRUBIN,DIRECT 0.1 mg/dL (0.0-0.4); BILIRUBIN,TOTAL 0.6 mg/dL (0.2-1.3); BLOOD UREA NITROGEN 10 mg/dL (7-20); CALCIUM 8.4 mg/dL (8.4-10.2); CARBON DIOXIDE 30 mmol/L (22-30); CHLORIDE 103 mmol/L (98-107); CREATINE KINASE 631 U/L (55-170); GLUCOSE 121 mg/dL (75-110); POTASSIUM 4.8 mmol/L (3.6-5.0); TOTAL PROTEIN 7.7 g/dL (6.3-8.2)
--- NOTE | 2019-04-22 13:13 | ER Document Report ---
ED Cardiac - General Chief Complaint: Chest Pain Stated Complaint: CHEST PAIN Time Seen by Provider: 04/22/19 09:39 Mode of Arrival: Ambulatory Information source: Patient TRAVEL OUTSIDE OF THE [place] IN LAST 30 DAYS: No - HPI Notes: Patient is well-known to emergency department. He presented to triage complaining of chest pain but stated that the chest pain was earlier this morning but that he currently has none. For me he denies any chest pain. He did admit that he was drinking. It is unknown how long this pain lasted. He will not answer questions about the intensity of the pain or what kind of pain it was. He points to the center of his chest when asked where the pain was. It apparently was not accompanied by shortness of breath or sweating. He has no known recent falls or trauma no known recent cold symptoms. - Related Data Allergies/Adverse Reactions: No Known Allergies Allergy (Verified 04/22/19 07:59) Past Medical History - General Information source: Patient - Social History Smoking Status: Never Smoker Frequency of alcohol use: Heavy Drug Abuse: Marijuana Family History: DM. denies: CAD, Hypertension, Malignancy Patient has suicidal ideation: No Patient has homicidal ideation: No - Past Medical History Cardiac Medical History: Denies: Hx Coronary Artery Disease, Hx Hypertension Pulmonary Medical History: Reports: Hx Asthma - as a child, Hx Bronchitis Denies: Hx COPD Neurological Medical History: Denies: Hx Seizures Endocrine Medical History: Denies: Hx Diabetes Mellitus Type 1, Hx Diabetes Mellitus Type 2, Hx Hyperthyroidism, Hx Hypothyroidism Renal/ Medical History: Denies: Hx Peritoneal Dialysis GI Medical History: Denies: Hx Cirrhosis, Hx Crohn's Disease, Hx Hepatitis, Hx Ulcerative Colitis Musculoskeletal Medical History: Denies Hx Arthritis, Denies Hx Gout Skin Medical History: Denies Hx Eczema, Denies Hx Psoriasis Psychiatric Medical History: Reports: Hx Depression Infectious Medical History: Denies: Hx Hepatitis - Immunizations Immunizations up to date: Yes Hx Diphtheria, Pertussis, Tetanus Vaccination: Yes Review of Systems - Review of Systems Constitutional: denies: Chills, Fever Cardiovascular: Chest pain. denies: Palpitations Respiratory: denies: Cough, Short of breath -: Yes All other systems reviewed and negative Physical Exam - Vital signs Vitals: Temp Pulse Resp BP Pulse Ox 97.6 F 78 16 124/74 100 04/22/19 08:01 04/22/19 08:01 04/22/19 08:01 04/22/19 08:01 04/22/19 08:01 Interpretation: Normal - General General appearance: Appears well, Alert - HEENT Head: Normocephalic, Atraumatic Eyes: Normal Pupils: PERRL - Respiratory Respiratory status: No respiratory distress Chest status: Nontender Breath sounds: Normal Chest palpation: Normal - Cardiovascular Rhythm: Regular Heart sounds: Normal auscultation Murmur: No - Abdominal Inspection: Normal Distension: No distension Bowel sounds: Normal Tenderness: Nontender Organomegaly: No organomegaly - Back Back: Normal, Nontender - Extremities General upper extremity: Normal inspection, Nontender, Normal color, Normal ROM, Normal temperature General lower extremity: Normal inspection, Nontender, Normal color, Normal ROM, Normal temperature, Normal weight bearing. No: Stepan's sign - Neurological Neuro grossly intact: Yes Cognition: Normal Orientation: AAOx4 [place] Coma Scale Eye Opening: Spontaneous [place] Coma Scale Verbal: Oriented [place] Coma Scale Motor: Obeys Commands [place] Coma Scale Total: 15 Speech: Normal Motor strength normal: LUE, RUE, LLE, RLE Sensory: Normal - Psychological Associated symptoms: Normal affect, Normal mood - Skin Skin Temperature: Warm Skin Moisture: Dry Skin Color: Normal Course - Re-evaluation Re-evalutation: 04/22/19 13:13 Patient presents with chest pain after drinking alcohol. Patient is obviously intoxicated. Patient does appear at the baseline for which I have seen him many times. Patient can answer questions appropriately and can ambulate on his own. I feel that patient is not going to benefit from further emergency department evaluation. - Vital Signs Vital signs: Temp Pulse Resp BP Pulse Ox 97.6 F 78 19 132/87 H 100 04/22/19 08:01 04/22/19 08:01 04/22/19 10:01 04/22/19 10:00 04/22/19 10:01 - Laboratory Result Diagrams: 04/22/19 08:59 04/22/19 08:59 Laboratory results interpreted by me: 04/22/19 04/22/19 08:59 08:59 Glucose 121 H AST 71 H Creatine Kinase 631 H CK-MB (CK-2) 7.99 H - Diagnostic Test Radiology reviewed: Image reviewed, Reports reviewed - EKG Interpretation by Sd EKG shows normal: Sinus rhythm Rate: Normal - 81 Rhythm: NSR [place]/QRS: No: Right axis deviation, Left axis deviation Discharge - Discharge Clinical Impression: Alcohol intoxication Qualifiers: Complication of substance-induced condition: uncomplicated Qualified Code(s): F10.920 - Alcohol use, unspecified with intoxication, uncomplicated Chest pain Qualifiers: Chest pain type: unspecified Qualified Code(s): R07.9 - Chest pain, unspecified Condition: Stable Disposition: HOME, SELF-CARE Instructions: Chest Pain of Unclear Cause ([facility]) Additional Instructions: Please call [facility] as soon as possible to arrange follow-up Referrals: [facility] [Provider Group] - Follow up in 3-5 days
[2019-04-22 13:28] VITALS: BP 117/79
--- NOTE | 2019-04-24 09:20 | EKG REPORT ---
SEVERITY:- NORMAL ECG - SINUS RHYTHM : Confirmed by: Vanessa Jacobs 24-Apr-2019 09:18:42
[2019-04-24] MEDS ORDERED: HYDRALAZINE HCL INJ/PF 20 MG/1 ML SDV IV PRN (16:35)
== END 2019-04-22 13:29 | disposition home or self-care (01) ==
LOC: ER 07:41
DX: R07.9 Chest pain, unspecified (principal); F10.920 Alcohol use, unspecified with intoxication, uncomplicated; J45.909 Unspecified asthma, uncomplicated
CPT/HCPCS: 36415; 80053; 82550; 82553; 84484; 85025; 93005; 93010; 99285

== ENCOUNTER 2019-04-23 18:26 | Emergency (ER) | payer SELFPAY ==
--- NOTE | 2019-04-23 20:13 | ER Document Report ---
ED Medical Screen (RME) - General Chief Complaint: Cough Stated Complaint: COUGH, FEELING SICK Time Seen by Provider: 04/23/19 20:08 Mode of Arrival: Ambulatory Information source: Patient Notes: 44-year-old male presented to ED for complaint of chest pain for couple days he states he is also had shortness of breath. States he smokes about 1/2 pack a day he states he drinks daily. He states he does not use any illicit drugs. He states he is not sure how much she has had to drink today. I have greeted and performed a rapid initial assessment of this patient. A comprehensive ED assessment and evaluation of the patient, analysis of test results and completion of medical decision making process will be conducted by an additional ED providers. TRAVEL OUTSIDE OF THE [place] IN LAST 30 DAYS: No - Related Data Allergies/Adverse Reactions: No Known Allergies Allergy (Verified 04/22/19 07:59) Past Medical History - General Information source: Patient - Social History Cigarette use (# per day): Yes - Pack per day Frequency of alcohol use: Heavy Drug Abuse: None Lives with: Homeless Family history: Reviewed & Not Pertinent - Past Medical History Cardiac Medical History: Reports: Hx Hypertension Pulmonary Medical History: Reports: Hx Asthma - as a child, Hx Bronchitis EENT Medical History: Reports: None Neurological Medical History: Reports: None. Denies: Hx Seizures Endocrine Medical History: Reports: None. Denies: Hx Diabetes Mellitus Type 1, Hx Diabetes Mellitus Type 2, Hx Hyperthyroidism, Hx Hypothyroidism Renal/ Medical History: Reports: None Malignancy Medical History: Reports None GI Medical History: Reports: None Musculoskeltal Medical History: Reports None Skin Medical History: Reports None Psychiatric Medical History: Reports: Hx Anxiety, Hx Depression Traumatic Medical History: Reports: None Infectious Medical History: Reports: None Surgical Hx: Negative Past Surgical History: Reports: None - Immunizations Immunizations up to date: Yes Hx Diphtheria, Pertussis, Tetanus Vaccination: Yes Physical Exam - Vital signs Vitals: Temp Pulse Resp BP Pulse Ox 98.8 F 103 H 18 142/81 H 100 04/23/19 18:37 04/23/19 18:37 04/23/19 18:37 04/23/19 18:37 04/23/19 18:37 Course - Vital Signs Vital signs: Temp Pulse Resp BP Pulse Ox 98.8 F 103 H 18 142/81 H 100 04/23/19 18:37 04/23/19 18:37 04/23/19 18:37 04/23/19 18:37 04/23/19 18:37
[2019-04-23] MEDS ORDERED: ASPIRIN 81 MG TABLET, CHEWABLE PO ONE (20:15)
--- NOTE | 2019-04-23 21:09 | RADIOLOGY REPORT (SQ) ---
EXAM DESCRIPTION: XR CHEST 2 VIEWS COMPLETED DATE/TME: 04/23/2019 20:16 CLINICAL HISTORY: 44 years, Male, Chest pain shortness of breath COMPARISON: April 20, 2019 NUMBER OF VIEWS: 2 TECHNIQUE: PA and lateral LIMITATIONS: None. FINDINGS: Cardiomediastinal silhouette is normal. Lungs grossly clear. No effusion. No pneumothorax IMPRESSION: No active intrathoracic disease copyright 2010 [employer]- All Rights Reserved
[2019-04-23 22:18] LABS: HEMATOCRIT 43.1 % (37.9-51.0); HEMOGLOBIN 15.2 g/dL (13.5-17.0); MEAN CORPUSCULAR HEMOGLOBIN 32.9 pg (27.0-33.4); MEAN CORPUSCULAR HGB CONC 35.3 g/dL (32.0-36.0); MEAN CORPUSCULAR VOLUME 93 fl (80-97); PLATELET COUNT 232 10^3/uL (150-450); RED BLOOD COUNT 4.62 10^6/uL (4.35-5.55); RED CELL DISTRIBUTION WIDTH 13.8 % (11.5-14.0); WHITE BLOOD COUNT 5.5 10^3/uL (4.0-10.5)
[2019-04-23 22:22] LABS: ALBUMIN 4.4 g/dL (3.5-5.0); ALKALINE PHOSPHATASE 82 U/L (38-126); ANION GAP 12 (5-19); ASPARTATE AMINO TRANSFERASE 619 U/L (17-59); BILIRUBIN,DIRECT 0.4 mg/dL (0.0-0.4); BILIRUBIN,TOTAL 0.7 mg/dL (0.2-1.3); BLOOD UREA NITROGEN 14 mg/dL (7-20); CALCIUM 8.8 mg/dL (8.4-10.2); CARBON DIOXIDE 27 mmol/L (22-30); CHLORIDE 105 mmol/L (98-107); GLUCOSE 114 mg/dL (75-110); POTASSIUM 4.6 mmol/L (3.6-5.0); TOTAL PROTEIN 8.1 g/dL (6.3-8.2)
[2019-04-23 22:37] LABS: ABSOLUTE LYMPHOCYTES# (MANUAL) 2.4 10^3/uL (0.5-4.7); ABSOLUTE MONOCYTES # (MANUAL) 0.3 10^3/uL (0.1-1.4); BASOPHILS % (MANUAL) 1 % (0-2); EOSINOPHILS % (MANUAL) 6 % (0-6); LYMPHOCYTES % (MANUAL) 43 % (13-45); MONOCYTES % (MANUAL) 6 % (3-13); RBC MORPHOLOGY COMMENT NORMO-CYTIC/CHROMIC; SEGMENTED NEUTROPHILS % (MAN) 44 % (42-78); TOTAL CELLS COUNTED 100
[2019-04-23 22:38] LABS: PLATELET COMMENT ADEQUATE
--- NOTE | 2019-04-23 23:23 | ER Document Report ---
ED General - General Chief Complaint: Chest Pain Stated Complaint: COUGH, FEELING SICK Time Seen by Provider: 04/23/19 20:08 Mode of Arrival: Ambulatory Notes: 44-year-old male presents with dyspnea for the past 3 days. Patient denies any nausea/vomiting, abdominal pain, dizziness. Patient does admit to drinking. Ana M wahl has been seen twice in the past week for chest pain and discharge. TRAVEL OUTSIDE OF THE [place] IN LAST 30 DAYS: No - Related Data Allergies/Adverse Reactions: No Known Allergies Allergy (Verified 04/23/19 20:08) Past Medical History - General Information source: Patient - Social History Smoking Status: Current Every Day Smoker Cigarette use (# per day): Yes - Pack per day Chew tobacco use (# tins/day): No Frequency of alcohol use: Heavy Drug Abuse: None Lives with: Homeless Family History: DM. denies: CAD, Hypertension, Malignancy Patient has suicidal ideation: No Patient has homicidal ideation: No - Past Medical History Cardiac Medical History: Reports: Hx Hypertension Denies: Hx Coronary Artery Disease Pulmonary Medical History: Reports: Hx Asthma - as a child, Hx Bronchitis Denies: Hx COPD EENT Medical History: Reports: None Neurological Medical History: Reports: None. Denies: Hx Seizures Endocrine Medical History: Reports: None. Denies: Hx Diabetes Mellitus Type 1, Hx Diabetes Mellitus Type 2, Hx Hyperthyroidism, Hx Hypothyroidism Renal/ Medical History: Reports: None. Denies: Hx Peritoneal Dialysis Malignancy Medical History: Reports None GI Medical History: Reports: None. Denies: Hx Cirrhosis, Hx Crohn's Disease, Hx Hepatitis, Hx Ulcerative Colitis Musculoskeletal Medical History: Reports None, Denies Hx Arthritis, Denies Hx Gout Skin Medical History: Reports None, Denies Hx Eczema, Denies Hx Psoriasis Psychiatric Medical History: Reports: Hx Anxiety, Hx Depression Traumatic Medical History: Reports: None Infectious Medical History: Reports: None. Denies: Hx Hepatitis Surgical Hx: Negative Past Surgical History: Reports: None - Immunizations Immunizations up to date: Yes Hx Diphtheria, Pertussis, Tetanus Vaccination: Yes Review of Systems - Review of Systems Notes: Constitutional: Negative for fever. HENT: Negative for sore throat. Eyes: Negative for visual changes. Cardiovascular: Positive for chest pain. Respiratory: Positive for shortness of breath. Gastrointestinal: Negative for abdominal pain, vomiting or diarrhea. Genitourinary: Negative for dysuria. Musculoskeletal: Negative for back pain. Skin: Negative for rash. Neurological: Negative for headaches, weakness or numbness. 10 point ROS negative except as marked above and in HPI. Physical Exam - Vital signs Vitals: Temp Pulse Resp BP Pulse Ox 98.8 F 103 H 18 142/81 H 100 04/23/19 18:37 04/23/19 18:37 04/23/19 18:37 04/23/19 18:37 04/23/19 18:37 - Notes Notes: GENERAL: Well-appearing, well-nourished and in no acute distress. HEAD: Atraumatic, normocephalic. EYES: Extraocular movements intact, sclera anicteric, conjunctiva are normal. NECK: Normal range of motion, supple without lymphadenopathy or JVD. LUNGS: Breath sounds clear to auscultation bilaterally and equal. No wheezes rales or rhonchi. HEART: Regular rate and rhythm without murmurs, rubs or gallops. EXTREMITIES: Normal range of motion, no pitting or edema. No clubbing or cyano sis. NEUROLOGICAL: Cranial nerves II through XII grossly intact. Normal speech, normal gait. PSYCH: Normal mood, normal affect. SKIN: Warm, Dry, normal turgor, no rashes or lesions noted. Course - Re-evaluation Re-evalutation: 04/23/19 Presentation of chest pain in an otherwise well appearing patient. Low clinical suspicion for ACS given clinical history, exam, EKG without ST elevations or depressions, and negative initial troponin. HEART score 0. PE also seems unlikely given clinical history, absence of tachycardia or dyspnea. Patient is PERC criteria negative. CXR without evidence of pneumothorax or pneumonia. No widened mediastinum. Aortic dissection also seems unlikely given history, symmetric pulses, CXR, and vitals. HEART Score: 0 Chest pain in a patient without evidence of cardiac or other serious etiology on workup today. I discussed with patient that, based on their age, risk factors and emergency department testing today, the likelihood that their symptoms are related to a heart attack is very low (estimated risk of heart attack or over the next 30 days of less than 1%). The patient demonstrates decision making capacity and has verbalized an understanding of these risks to me. Based on this, the patient has chosen to follow-up as an outpatient. Usual chest pain return precautions reviewed. The patient states understanding and agreement with this plan. - Vital Signs Vital signs: Temp Pulse Resp BP Pulse Ox 98.8 F 107 H 18 121/71 99 04/23/19 18:37 04/23/19 20:14 04/23/19 18:37 04/23/19 20:14 04/23/19 20:14 - Laboratory Result Diagrams: 04/23/19 21:30 04/23/19 21:30 Laboratory results interpreted by me: 04/23/19 21:30 Glucose 114 H AST 619 H Discharge - Discharge Clinical Impression: Chest pain Qualifiers: Chest pain type: unspecified Qualified Code(s): R07.9 - Chest pain, unspecified Condition: Stable Disposition: HOME, SELF-CARE Instructions: Chest Pain of Unclear Cause ([facility]) Additional Instructions: You were seen today for chest pain. The exact cause of your pain is unclear. However, based on your cardiac enzyme testing, chest x-ray, and EKG it does not appear that it is from an immediately life-threatening cause at this time. Although your testing here is normal is critical that you follow-up with your primary care physician for continued evaluation of this chest pain and possible stress testing. I recommended you see your physician within the next 24-48 hours to be evaluated for consideration of a stress test. Please return to emergency department immediately if you have worsening of your chest pain, shortness of breath, vomiting, become unable to exert yourself due to pain or di fficulty breathing, you pass out, or have any pain that radiates into your arms, jaw, or back. Please also return if you have any additional symptoms that are concerning to you. Referrals: MAYKEL BARRON MD [COMMUNITY BASED STAFF] - Follow up in 3-5 days JEFFREY CARREON MD [ACTIVE STAFF] - Follow up in 1 week [facility] [Provider Group] - Follow up in 3-5 days
[2019-04-24 01:25] VITALS: BP 129/75
== END 2019-04-24 01:26 | disposition home or self-care (01) ==
LOC: ER 18:26
DX: R07.9 Chest pain, unspecified (principal); R05 Cough; R06.02 Shortness of breath; R06.00 Dyspnea, unspecified; R10.9 Unspecified abdominal pain; R42 Dizziness and giddiness; F17.210 Nicotine dependence, cigarettes, uncomplicated; J45.909 Unspecified asthma, uncomplicated; I10 Essential (primary) hypertension
CPT/HCPCS: 36415; 71046; 80053; 84484; 85025; 99285

== ENCOUNTER 2019-09-18 17:48 | Emergency (ER) | payer SELFPAY ==
[2019-09-18 19:30] LABS: ABSOLUTE BASOPHILS # (AUTO) 0.1 10^3/uL (0.0-0.2); ABSOLUTE EOSINOPHILS # (AUTO) 0.3 10^3/uL (0.0-0.6); ABSOLUTE LYMPHOCYTES (AUTO) 2.9 10^3/uL (0.5-4.7); ABSOLUTE MONOCYTES (AUTO) 0.3 10^3/uL (0.1-1.4); ABSOLUTE NEUT (AUTO) 3.2 10^3/uL (1.7-8.2); BASOPHILS % (AUTO) 1.4 % (0-2); EOSINOPHILS % (AUTO) 3.7 % (0-6); HEMATOCRIT 42.1 % (37.9-51.0); HEMOGLOBIN 14.8 g/dL (13.5-17.0); LYMPHOCYTES % (AUTO) 42.7 % (13-45); MEAN CORPUSCULAR HEMOGLOBIN 31.6 pg (27.0-33.4); MEAN CORPUSCULAR HGB CONC 35.2 g/dL (32.0-36.0); MEAN CORPUSCULAR VOLUME 90 fl (80-97); MONOCYTES % (AUTO) 4.9 % (3-13); PLATELET COUNT 191 10^3/uL (150-450); RED BLOOD COUNT 4.68 10^6/uL (4.35-5.55); RED CELL DISTRIBUTION WIDTH 12.5 % (11.5-14.0); SEGMENTED NEUTROPHILS % (AUTO) 47.3 % (42-78); TOTAL CELLS COUNTED % (AUTO) 100 %; WHITE BLOOD COUNT 6.7 10^3/uL (4.0-10.5)
[2019-09-18 19:37] LABS: APPEARANCE,URINE CLEAR; BILIRUBIN,URINE NEGATIVE (NEGATIVE); COLOR,URINE COLORLESS; GLUCOSE, URINE NEGATIVE (NEGATIVE); KETONES,URINE NEGATIVE (NEGATIVE); LEUKOCYTE ESTERASE,URINE NEGATIVE (NEGATIVE); NITRITE,URINE NEGATIVE (NEGATIVE); PROTEIN,URINE NEGATIVE (NEGATIVE); URINE SPECIFIC GRAVITY 1.004; UROBILINOGEN,URINE NEGATIVE mg/dL (<2.0)
[2019-09-18 19:49] LABS: ALBUMIN 4.9 g/dL (3.5-5.0); ALKALINE PHOSPHATASE 74 U/L (38-126); ANION GAP 10 (5-19); ASPARTATE AMINO TRANSFERASE 53 U/L (17-59); BLOOD UREA NITROGEN 12 mg/dL (7-20); CALCIUM 9.2 mg/dL (8.4-10.2); CARBON DIOXIDE 31 mmol/L (22-30); CHLORIDE 104 mmol/L (98-107); GLUCOSE 89 mg/dL (75-110); POTASSIUM 4.5 mmol/L (3.6-5.0); TOTAL PROTEIN 8.9 g/dL (6.3-8.2)
[2019-09-18 19:50] LABS: ACETAMINOPHEN < 10 ug/mL (10-30); SALICYLATE < 1.0 mg/dL (2.0-20.0)
[2019-09-18 19:58] LABS: URINE AMPHETAMINES SCREEN NEGATIVE; URINE BARBITURATES SCREEN NEGATIVE; URINE BENZODIAZEPINES SCREEN NEGATIVE; URINE COCAINE SCREEN NEGATIVE; URINE MARIJUANA (THC) SCREEN NEGATIVE; URINE METHADONE SCREEN NEGATIVE; URINE PHENCYCLIDINE SCREEN NEGATIVE
[2019-09-18 20:05] LABS: ALCOHOL 383 mg/dL (NONE DETECTED)
--- NOTE | 2019-09-18 21:30 | ER Document Report ---
ED General - General Chief Complaint: ETOH Abuse Stated Complaint: ETOH Time Seen by Provider: 09/18/19 20:46 TRAVEL OUTSIDE OF THE [place] IN LAST 30 DAYS: No - HPI Notes: Patient is a 44-year-old male who presents to the emergency department for evaluation by EMS. Evidently the patient was found on side of the road, intoxicated. He had a point for 3 alcohol for their field measurement. EMS noted they had never seen him that intoxicated, and he presents to the ED for further evaluation. The patient admits to drinking a lot of beer today. He denies use of any other illicit drugs. He denies suicidal or homicidal ideation. He denies pain, but admits to frequent falls. He really cannot give me any details in regards to that, but does admit he struck his head at some point recently. - Related Data Allergies/Adverse Reactions: No Known Allergies Allergy (Verified 09/18/19 18:16) Past Medical History - General Information source: Patient - Social History Smoking Status: Current Every Day Smoker Frequency of alcohol use: Heavy Family History: DM. denies: CAD, Hypertension, Malignancy - Past Medical History Cardiac Medical History: Reports: Hx Hypertension Denies: Hx Coronary Artery Disease Pulmonary Medical History: Reports: Hx Asthma - as a child, Hx Bronchitis Denies: Hx COPD Neurological Medical History: Denies: Hx Seizures Endocrine Medical History: Denies: Hx Diabetes Mellitus Type 1, Hx Diabetes Mellitus Type 2, Hx Hyperthyroidism, Hx Hypothyroidism Renal/ Medical History: Denies: Hx Peritoneal Dialysis GI Medical History: Denies: Hx Cirrhosis, Hx Crohn's Disease, Hx Hepatitis, Hx Ulcerative Colitis Musculoskeletal Medical History: Denies Hx Arthritis, Denies Hx Gout Skin Medical History: Denies Hx Eczema, Denies Hx Psoriasis Psychiatric Medical History: Reports: Hx Anxiety, Hx Depression Infectious Medical History: Denies: Hx Hepatitis - Immunizations Immunizations up to date: Yes Hx Diphtheria, Pertussis, Tetanus Vaccination: Yes Review of Systems - Review of Systems Neurological/Psychological: See HPI -: Yes All other systems reviewed and negative Physical Exam - Vital signs Vitals: Temp Resp BP Pulse Ox 98.8 F 12 130/83 H 96 09/18/19 18:15 09/18/19 18:15 09/18/19 18:15 09/18/19 18:15 - Notes Notes: This is a 44-year-old male who appears his stated age. He smells strongly of alcohol. He is disheveled. He will answer my questions with nods and shaking of the head, but only speaks minimally. He answers in one-word responses, if at all. Vital signs reviewed, please refer to chart. Head is normocephalic, atraumatic. Pupils equal round, reactive to light. Neck is supple without meningismus. Heart is regular rate and rhythm. Lungs are clear to auscultation bilaterally. Abdomen is soft, mildly tender in the epigastrium without rebound or guarding, normoactive bowel sounds throughout. Extremities without cyanosis, clubbing. Posterior calves are nontender. Peripheral pulses are equal. Skin is warm and dry. Patient is drowsy but awakes easily to verbal stimuli. He is oriented to place and time. No gross facial asymmetry. He moves all 4 extremities spontaneously. Course - Re-evaluation Re-evalutation: 09/18/19 21:30 Patient presents to the emergency department for evaluation. He was brought in for intoxication. He is really not participating much in his care, does have some abdominal tenderness on exam, and was found on the side of the road. I ordered a CT scan of the head as well as a lipase. Patient is currently stable, we will continue to monitor. 09/18/19 22:36 Laboratory investigations reveal significant alcohol intoxication and no other acute findings. Dr. Scanlon is aware of this patient per EMS, is amenable to seeing him. At this point with the exception of alcohol intoxication he is medically cleared. - Vital Signs Vital signs: Temp Pulse Resp BP Pulse Ox 98.3 F 12 130/83 H 98 09/18/19 18:16 09/18/19 18:15 09/18/19 18:15 09/18/19 19:00 - Laboratory Result Diagrams: 09/18/19 19:17 09/18/19 19:17 Laboratory results interpreted by me: 09/18/19 19:17 Carbon Dioxide 31 H Total Protein 8.9 H Salicylates < 1.0 L Acetaminophen < 10 L Serum Alcohol 383 H* Discharge - Discharge Clinical Impression: Acute alcohol intoxication in patient with alcoholism with blood alcohol level over 0.3 Condition: Stable Disposition: OTHER
--- NOTE | 2019-09-18 22:02 | RADIOLOGY REPORT (SQ) ---
EXAM DESCRIPTION: CT HEAD WITHOUT IV CONTRAST COMPLETED DATE/TME: 09/18/2019 21:22 CLINICAL HISTORY: 44 years, Male, ams, elevated alcohol, falls COMPARISON: None Available. Technique: Contiguous axial images of the brain were obtained without the administration of intravenous contrast. Coronal and sagittal reformats obtained and reviewed. This exam was performed according to our departmental dose-optimization program which includes use of Automated Exposure Control, adjustment of the mA and/or kV according to patient size and/or use of iterative reconstruction technique. Findings: Brain: No hemorrhage. No territorial infarct. No mass effect. No herniation. Ventricles: Within normal limits for patient's age. Bones: No acute osseous abnormality. Paranasal sinuses: Unremarkable. Mastoid air cells: Unremarkable. Soft tissues: No acute abnormality. IMPRESSION: No acute intracranial abnormalities.
--- NOTE | 2019-09-19 06:56 | ER Document Report ---
Doctor's Note Notes: 09/19/19 06:54 At 645 this patient did wake up stated he was ready to leave. He is alert and oriented answering questions appropriately. I did discuss with him that he was better off to stay and talk with Dr. Scanlon before leaving. He stated no he did not want to stay he wanted to go home now he was feeling better and he was ready to leave. He has not been under any IVC paperwork. I have tried several times to convince him to stay. He is able to ambulate with a steady gait is able to say where he is and that he knows he would came in here drunk last night but that he is ready to go home and he does not want to stay to talk to anybody or to go to any facility.
[2019-09-19 07:55] VITALS: BP 138/82
--- NOTE | 2019-09-19 10:44 | PSYCHOLOGICAL NOTE ---
Psych Note - Psych Note Date seen by psych provider: 09/18/19 Time seen by psych provider: 18:55 Psych Note: Presenting Problem: Patient is a 44 year old male who presented to the [facility] ED today via EMS and [employer] after being drunk outside of [place] for 2 days. EMS said Blood Alcohol Level was 0.43 for them and patient was unable to answer questions. He was more intoxicated than usual. EMS stated [facility] was full tonight but may have discharges in the morning. Patient was sleeping in position in bed covered up (cover over head). He was getting IV fluids. He woke up, barely opened eyes, was informed where he was. He would just shake his head yes to anything being said to him whether a question or statement. Patient had a pungent odor and clothes appeared dirty. Attending nurse stated patient is on the "not to be seen list by emergency services" but due to level of intoxication was brought in. She noted he does have a history of being homeless. Review of chart revealed patient has been seen in the ED 11 times since 2018 for alcohol related issues. Most were in 2019. Clinical Presentation: Alcohol Intoxication Diagnosis: Alcohol Use Disorder, Severe Medication recommendations: This clinician and Attending ED Nurse had discussion about withdrawal concerns. This clinician mentioned once patient gets to 200 there may be concern and CIWA protocol would be beneficial. Impression/Plan: Patient is cleared from acute psychiatric services. He's in ED due to level of alcohol intoxication and inability to answer questions/function. EMS tried [facility] but full tonight with potential discharged in the morning. Consulted with Dr. Scanlon regarding the management and care of patient. ED Physician in agreement with recommendations.
--- NOTE | 2019-09-19 19:35 | EKG REPORT ---
SEVERITY:- NORMAL ECG - SINUS RHYTHM : Confirmed by: Vanessa Jacobs 19-Sep-2019 19:34:58
== END 2019-09-19 06:55 | disposition other institution (70) ==
LOC: ER 17:48
DX: F10.129 Alcohol abuse with intoxication, unspecified (principal); R10.9 Unspecified abdominal pain; Y90.1 Blood alcohol level of 20-39 mg/100 ml; F17.200 Nicotine dependence, unspecified, uncomplicated
CPT/HCPCS: 36415; 70450; 80053; 80307; 81001; 83690; 85025; 93005; 93010; 99285

== ENCOUNTER 2019-10-17 16:24 | Emergency (ER) | payer SELFPAY ==
--- NOTE | 2019-10-17 16:33 | ER Document Report ---
ED Medical Screen (RME) - General Chief Complaint: Chest Pain > 30 Stated Complaint: PSYCH EVAL Time Seen by Provider: 10/17/19 16:28 Mode of Arrival: Ambulatory Information source: Law Enforcement Notes: 44-year-old male presented to ED for complaint of severe chest pain. He was brought in by [place] police. They found him laying on his left side in a ditch in the shade. States his alcohol blew a 0.49. He is homeless. He states he smokes a pack a day and drinks heavily. He states right now he is having severe chest pain like he is having a heart attack. Patient is alert able to answer questions. Use of drugs. I have greeted and performed a rapid initial assessment of this patient. A comprehensive ED assessment and evaluation of the patient, analysis of test resu lts and completion of medical decision making process will be conducted by an additional ED providers. TRAVEL OUTSIDE OF THE [place] IN LAST 30 DAYS: No - Related Data Allergies/Adverse Reactions: No Known Allergies Allergy (Verified 10/17/19 16:29) Past Medical History - Social History Family history: Reviewed & Not Pertinent - Past Medical History Cardiac Medical History: Reports: Hx Hypertension Denies: Hx Coronary Artery Disease Pulmonary Medical History: Reports: Hx Asthma - as a child, Hx Bronchitis Denies: Hx COPD Neurological Medical History: Denies: Hx Seizures Endocrine Medical History: Denies: Hx Diabetes Mellitus Type 1, Hx Diabetes Mellitus Type 2, Hx Hyperthyroidism, Hx Hypothyroidism Renal/ Medical History: Denies: Hx Peritoneal Dialysis GI Medical History: Denies: Hx Cirrhosis, Hx Crohn's Disease, Hx Hepatitis, Hx Ulcerative Colitis Musculoskeltal Medical History: Denies Hx Arthritis, Denies Hx Gout Skin Medical History: Denies Hx Eczema, Denies Hx Psoriasis Psychiatric Medical History: Reports: Hx Anxiety, Hx Depression Infectious Medical History: Denies: Hx Hepatitis - Immunizations Immunizations up to date: Yes Hx Diphtheria, Pertussis, Tetanus Vaccination: Yes Physical Exam - Vital signs Vitals: Temp Pulse Resp BP Pulse Ox 98.7 F 85 18 131/80 H 99 10/17/19 16:28 10/17/19 16:28 10/17/19 16:28 10/17/19 16:28 10/17/19 16:28 Course - Vital Signs Vital signs: Temp Pulse Resp BP Pulse Ox 98.7 F 85 18 131/80 H 99 10/17/19 16:28 10/17/19 16:28 10/17/19 16:28 10/17/19 16:28 10/17/19 16:28
[2019-10-17 17:11] LABS: ABSOLUTE LYMPHOCYTES (AUTO) 1.7 10^3/uL (0.5-4.7); ABSOLUTE MONOCYTES (AUTO) 0.4 10^3/uL (0.1-1.4); ABSOLUTE NEUT (AUTO) 1.4 10^3/uL (1.7-8.2); BASOPHILS % (AUTO) 0.1 % (0-2); EOSINOPHILS % (AUTO) 1.1 % (0-6); HEMOGLOBIN 14.5 g/dL (13.5-17.0); LYMPHOCYTES % (AUTO) 47.5 % (13-45); MEAN CORPUSCULAR HEMOGLOBIN 33.5 pg (27.0-33.4); MEAN CORPUSCULAR HGB CONC 35.3 g/dL (32.0-36.0); MONOCYTES % (AUTO) 10.5 % (3-13); PLATELET COUNT 118 10^3/uL (150-450); RED BLOOD COUNT 4.32 10^6/uL (4.35-5.55); RED CELL DISTRIBUTION WIDTH 16.6 % (11.5-14.0); SEGMENTED NEUTROPHILS % (AUTO) 40.8 % (42-78); TOTAL CELLS COUNTED % (AUTO) 100 %; WHITE BLOOD COUNT 3.5 10^3/uL (4.0-10.5)
--- NOTE | 2019-10-17 17:19 | RADIOLOGY REPORT (SQ) ---
EXAM DESCRIPTION: CHEST SINGLE VIEW IMAGES COMPLETED DATE/TIME: 10/17/2019 5:04 pm REASON FOR STUDY: ETOH 490mg% COMPARISON: 04/23/2019 EXAM PARAMETERS: NUMBER OF VIEWS: One view. TECHNIQUE: Single frontal radiographic view of the chest acquired. RADIATION DOSE: NA LIMITATIONS: None. FINDINGS: LUNGS AND PLEURA: No opacities, masses or pneumothorax. No pleural effusion. MEDIASTINUM AND HILAR STRUCTURES: No masses. Contour normal. HEART AND VASCULAR STRUCTURES: Heart normal in size. Normal vasculature. BONES: No acute findings. HARDWARE: None in the chest. OTHER: No other significant finding. IMPRESSION: 1. No significant interval changes since the prior examination dated 04/23/2019. No acu te findings. TECHNICAL DOCUMENTATION: JOB ID: [id number] 2010 [employer]- All Rights Reserved Reading location - IP/workstation name: [email or web address]
[2019-10-17 17:32] LABS: ALKALINE PHOSPHATASE 129 U/L (38-126); ANION GAP 10 (5-19); ASPARTATE AMINO TRANSFERASE 664 U/L (17-59); BILIRUBIN,DIRECT 0.8 mg/dL (0.0-0.4); BILIRUBIN,TOTAL 2.3 mg/dL (0.2-1.3); BLOOD UREA NITROGEN 13 mg/dL (7-20); CALCIUM 7.9 mg/dL (8.4-10.2); CARBON DIOXIDE 27 mmol/L (22-30); CHLORIDE 103 mmol/L (98-107); GLUCOSE 102 mg/dL (75-110); TOTAL PROTEIN 7.8 g/dL (6.3-8.2)
[2019-10-17 17:33] LABS: MEAN CORPUSCULAR VOLUME 95 fl (80-97)
[2019-10-17 17:34] LABS: ACETAMINOPHEN < 10 ug/mL (10-30); SALICYLATE < 1.0 mg/dL (2.0-20.0)
[2019-10-17 17:39] LABS: CREATINE KINASE 1905 U/L (55-170)
[2019-10-17 17:43] LABS: ALCOHOL 426 mg/dL (NONE DETECTED)
--- NOTE | 2019-10-17 17:53 | ER Document Report ---
Entered by ALINA MCCARTY SCRIBE 10/17/19 1741 Acting as scribe for:JAVIER RG MD ED Substance Abuse / Acc. OD - General Mode of Arrival: Ambulatory Information source: Patient TRAVEL OUTSIDE OF THE U.S. IN LAST 30 DAYS: No - Related Data Home Medications: denies <JAVIER RG - Last Filed: 10/17/19 21:09> <BARRONLANCE CLAUDIA - Last Filed: 10/18/19 05:49> - General Chief Complaint: Chest Pain > 30 Stated Complaint: PSYCH EVAL Time Seen by Provider: 10/17/19 16:28 Notes: This 44 year old male patient presents to the emergency department today with [place] [employer] on IVC paperwork. This patient was [place] passed out [place] neonatal nurse's office. Law Enforcement reported a breathalyzer alcohol level to be 0.490. Patient admits drinking heavily frequently, including today. Patient is quite intoxicated and is unable to provide any history. (JAVIER RG) - Related Data Allergies/Adverse Reactions: No Known Allergies Allergy (Verified 10/17/19 16:29) Past Medical History - General Information source: Law Enforcement - Social History Smoking Status: Current Every Day Smoker Cigarette use (# per day): Yes Chew tobacco use (# tins/day): No Frequency of alcohol use: Heavy Drug Abuse: None Lives with: Homeless Family History: Reviewed & Not Pertinent, DM Patient has homicidal ideation: No - Past Medical History Cardiac Medical History: Reports: Hx Hypertension Pulmonary Medical History: Reports: Hx Asthma - as a child, Hx Bronchitis Psychiatric Medical History: Reports: Hx Anxiety, Hx Depression Surgical Hx: Negative - Immunizations Immunizations up to date: Yes Hx Diphtheria, Pertussis, Tetanus Vaccination: Yes <JAVIER RG - Last Filed: 10/17/19 21:09> Review of Systems - Review of Systems -: Yes ROS unobtainable due to patient's medical condition - intoxicated <JAVIER RG - Last Filed: 10/17/19 21:09> Physical Exam <JAVIER RG - Last Filed: 10/17/19 21:09> - Vital signs Vitals: Temp Pulse Resp BP Pulse Ox 98.7 F 85 18 131/80 H 99 10/17/19 16:28 10/17/19 16:28 10/17/19 16:28 10/17/19 16:28 10/17/19 16:28 - Notes Notes: Physical Exam: General: Sleeping, smells heavily of EtOH, blank stare when woken up, does not answer any questions. HEENT: Normocephalic. Atraumatic. PERRLA. Extraocular movements intact. Oropharynx clear. Injected conjunctiva bilaterally. Neck: Supple. Respiratory: No respiratory distress. Abdominal: Normal Inspection. No distension. Extremities: Moves all four extremities. Neurological: Unable to assess Psychological: Unable to assess Skin: Warm. Dry. Normal color. (JAVIER RG) Course - Laboratory Result Diagrams: 10/17/19 16:57 10/17/19 16:57 - EKG Interpretation by In EKG shows normal: Sinus rhythm, [place], Intervals, QRS Complexes, ST-T Waves Rate: Normal - 70 Rhythm: NSR Voltage: Consistant with LVH When compared to previous EKG there are: Changes noted - Transfer of Care Care transferred to following provider: Dr Mart <JAVIER RG - Last Filed: 10/17/19 21:09> - Laboratory Result Diagrams: 10/17/19 16:57 10/18/19 04:00 <LANCE MART IV - Last Filed: 10/18/19 05:49> - Re-evaluation Re-evalutation: 10/17/19 20:18 Patient's alcohol level was 426, he will be approaching alcohol level of 150 about 6 AM tomorrow morning. His CK was 1905, He received IV fluids to help wash the muscle enzymes out of his bloodstream. (JAVIER RG) 10/18/19 05:49 Patient's repeat CPK and alcohol levels are decreased. (LANCE MART IV) - Vital Signs Vital signs: Temp Pulse Resp BP Pulse Ox 98.2 F 74 16 119/65 95 10/18/19 02:42 10/18/19 02:42 10/18/19 02:42 10/18/19 02:42 10/18/19 02:42 - Laboratory Laboratory results interpreted by mi: 10/17/19 10/17/19 10/17/19 16:57 16:57 21:45 WBC 3.5 L RBC 4.32 L MCH 33.5 H RDW 16.6 H Plt Count 118 L Lymph % (Auto) 47.5 H Absolute Neuts (auto) 1.4 L Seg Neutrophils % 40.8 L Sodium Glucose Calcium 7.9 L Total Bilirubin 2.3 H Direct Bilirubin 0.8 H AST 664 H ALT 182 H Alkaline Phosphatase 129 H Creatine Kinase 1905 H Lipase 461.8 H Urine Urobilinogen 2.0 H Salicylates < 1.0 L Acetaminophen < 10 L Serum Alcohol 426 H* 10/18/19 04:00 WBC RBC MCH RDW Plt Count Lymph % (Auto) Absolute Neuts (auto) Seg Neutrophils % Sodium 136.4 L Glucose 134 H Calcium 7.8 L Total Bilirubin Direct Bilirubin AST ALT Alkaline Phosphatase Creatine Kinase 1202 H Lipase Urine Urobilinogen Salicylates Acetaminophen Serum Alcohol - Transfer of Care Notes: 10/17/19 21:12 The patient will have an alcohol level approaching 150 about 6:00 in the morning. We will repeat his lab work about 4 AM to be sure his CK muscle enzymes are coming down adequately. (JAVIER RG) Discharge <JAVIER RG - Last Filed: 10/17/19 21:09> <LANCE MART IV - Last Filed: 10/18/19 05:49> - Discharge Clinical Impression: Elevated lipase, Chronic alcohol dependence, continuous Acute alcohol intoxication in patient with alcoholism with blood alcohol level over 0.3 Qualifiers: Complication of substance-induced condition: uncomplicated Qualified Code(s): F10.220 - Alcohol dependence with intoxication, uncomplicated Altered mental status Qualifiers: Altered mental status type: unspecified Qualified Code(s): R41.82 - Altered mental status, unspecified Rhabdomyolysis Qualifiers: Rhabdomyolysis type: non-traumatic Qualified Code(s): M62.82 - Rhabdomyolysis Condition: Stable Disposition: HOME, SELF-CARE Additional Instructions: Acute Alcohol Intoxication: Your evaluation revealed very high levels of alcohol. You can from drinking a large amount of alcohol rapidly! Further, there's the risk of falls, traffic accidents, and fights. A high portion (about 50 percent) of the serious injuries seen in hospital emergency rooms are caused by alcohol. Alcohol overdosage is usually due to an underlying emotional or psychiatric problem. You may benefit from counselling. If "binge" drinking is an ongoing problem for you, or if you drink ANY AMOUNT of alcohol EVERY day, you most likely have a tendency to alcoholism. You should avoid alcohol totally. We can refer you for treatment. Persons with alcohol problems are often also prone to other addictions -- you should discuss any use of medications or drugs with the doctor. You should be watched at home for the next several hours by someone who has not been drinking. Get extra fluids for the next 24 hours. Call the doctor if there is repeated vomiting, increasing headache, decreasing level of alertness, or any other worsening. Rhabdomyolysis: Your muscle enzyme levels were elevated today. It is probably due to being out in the heat and not drinking enough water. You got severely alcohol intoxicated today, and that does lead to dehydration. Stop drinking alcohol. Drink plenty of fluids today and get plenty of rest. Follow-up with a local medical doctor as needed. Consider going to [facility] for alcohol detoxification. RETURN TO THE EMERGENCY ROOM IF ANY NEW OR WORSENING SYMPTOMS. Referrals: SHAUNNA SWANSON MD [HONORARY] - Follow up as needed I personally performed the services described in the documentation, reviewed and edited the documentation which was dictated to the scribe in my presence, and it accurately records my words and actions.
--- NOTE | 2019-10-17 18:04 | PSYCHOLOGICAL NOTE ---
Psych Note - Psych Note Date seen by psych provider: 10/17/19 Time seen by psych provider: 16:33 Psych Note: Reason for consult: Altered mental status Patient was found laying in the grass in [facility] behind an environmental attorney's office. Patient reportedly had EtOH of 0.49 on scene. There was significant concern the patient is currently unable to care for himself due to his impaired cognitive abilities. 24-hour petition for evaluation has been signed and placed in patient's chart until patient is no longer under the influence of alcohol. This patient is well-known to clinician and department. He is homeless and has a chronic severe alcohol use disorder. Patient does not need to remain on psychiatric hold once clinically sober. Patient historically has declined assistance with substance abuse treatment; however, resource information will be provided with discharge paperwork if the patient changes his mind.
[2019-10-17] MEDS ORDERED: THIAMINE HCL INJ 200 MG/2 ML VIAL IV ONE (18:52)
[2019-10-17] MEDS: RINGERS SOLUTION,LACTATED 1,000 ML IV PRN ×2 (19:46→20:30)
[2019-10-17] MEDS ORDERED: RINGERS SOLUTION,LACTATED 1,000 ML IV ONE (21:15)
[2019-10-17 22:05] LABS: APPEARANCE,URINE CLEAR; BILIRUBIN,URINE NEGATIVE (NEGATIVE); COLOR,URINE YELLOW; GLUCOSE, URINE NEGATIVE (NEGATIVE); KETONES,URINE NEGATIVE (NEGATIVE); LEUKOCYTE ESTERASE,URINE NEGATIVE (NEGATIVE); NITRITE,URINE NEGATIVE (NEGATIVE); PROTEIN,URINE NEGATIVE (NEGATIVE); URINE SPECIFIC GRAVITY 1.012
[2019-10-17 22:20] LABS: URINE AMPHETAMINES SCREEN NEGATIVE; URINE BARBITURATES SCREEN NEGATIVE; URINE BENZODIAZEPINES SCREEN NEGATIVE; URINE COCAINE SCREEN NEGATIVE; URINE MARIJUANA (THC) SCREEN NEGATIVE; URINE METHADONE SCREEN NEGATIVE; URINE PHENCYCLIDINE SCREEN NEGATIVE
[2019-10-18 04:54] LABS: ALCOHOL 217 mg/dL (NONE DETECTED); ANION GAP 9 (5-19); BLOOD UREA NITROGEN 9 mg/dL (7-20); CALCIUM 7.8 mg/dL (8.4-10.2); CARBON DIOXIDE 24 mmol/L (22-30); CHLORIDE 103 mmol/L (98-107); CREATINE KINASE 1202 U/L (55-170); GLUCOSE 134 mg/dL (75-110); POTASSIUM 3.9 mmol/L (3.6-5.0)
[2019-10-18 06:00] VITALS: BP 133/72
--- NOTE | 2019-10-18 10:26 | EKG REPORT ---
SEVERITY:- ABNORMAL ECG - SINUS RHYTHM CONSIDER LEFT VENTRICULAR HYPERTROPHY : Confirmed by: Vanessa Jacobs 18-Oct-2019 10:25:20
== END 2019-10-18 06:01 | disposition home or self-care (01) ==
LOC: ER 16:24
DX: F10.220 Alcohol dependence with intoxication, uncomplicated (principal); Y90.8 Blood alcohol level of 240 mg/100 ml or more; M62.82 Rhabdomyolysis; R07.9 Chest pain, unspecified; R79.89 Other specified abnormal findings of blood chemistry; F17.210 Nicotine dependence, cigarettes, uncomplicated; I10 Essential (primary) hypertension; Z59.0 Homelessness
CPT/HCPCS: 93005; 99285; 96361; 96374; 36415; 80307 ×4; 82550; 83690; 83735; 85025; 80048; 80053; 81001; 84484; 71045; 93010; J3411; J7120

== ENCOUNTER 2019-10-22 14:52 | Emergency (ER) | payer SELFPAY ==
[2019-10-22 15:35] LABS: APPEARANCE,URINE CLEAR; BILIRUBIN,URINE NEGATIVE (NEGATIVE); COLOR,URINE STRAW; GLUCOSE, URINE NEGATIVE (NEGATIVE); KETONES,URINE NEGATIVE (NEGATIVE); LEUKOCYTE ESTERASE,URINE NEGATIVE (NEGATIVE); NITRITE,URINE NEGATIVE (NEGATIVE); PROTEIN,URINE NEGATIVE (NEGATIVE); URINE SPECIFIC GRAVITY 1.004; UROBILINOGEN,URINE NEGATIVE mg/dL (<2.0)
[2019-10-22 15:39] LABS: ABSOLUTE LYMPHOCYTES (AUTO) 2.1 10^3/uL (0.5-4.7); ABSOLUTE MONOCYTES (AUTO) 0.4 10^3/uL (0.1-1.4); ABSOLUTE NEUT (AUTO) 1.7 10^3/uL (1.7-8.2); BASOPHILS % (AUTO) 1.1 % (0-2); EOSINOPHILS % (AUTO) 0.8 % (0-6); HEMATOCRIT 40.8 % (37.9-51.0); HEMOGLOBIN 14.4 g/dL (13.5-17.0); LYMPHOCYTES % (AUTO) 49.2 % (13-45); MEAN CORPUSCULAR HEMOGLOBIN 33.6 pg (27.0-33.4); MEAN CORPUSCULAR HGB CONC 35.2 g/dL (32.0-36.0); MEAN CORPUSCULAR VOLUME 95 fl (80-97); MONOCYTES % (AUTO) 9.1 % (3-13); RED BLOOD COUNT 4.28 10^6/uL (4.35-5.55); RED CELL DISTRIBUTION WIDTH 16.5 % (11.5-14.0); SEGMENTED NEUTROPHILS % (AUTO) 39.8 % (42-78); TOTAL CELLS COUNTED % (AUTO) 100 %; WHITE BLOOD COUNT 4.2 10^3/uL (4.0-10.5)
[2019-10-22 15:49] LABS: URINE AMPHETAMINES SCREEN NEGATIVE; URINE BARBITURATES SCREEN NEGATIVE; URINE BENZODIAZEPINES SCREEN NEGATIVE; URINE COCAINE SCREEN NEGATIVE; URINE MARIJUANA (THC) SCREEN NEGATIVE; URINE METHADONE SCREEN NEGATIVE; URINE PHENCYCLIDINE SCREEN NEGATIVE
[2019-10-22 15:50] LABS: ALBUMIN 4.2 g/dL (3.5-5.0); ALKALINE PHOSPHATASE 129 U/L (38-126); ANION GAP 10 (5-19); ASPARTATE AMINO TRANSFERASE 180 U/L (17-59); BILIRUBIN,DIRECT 0.3 mg/dL (0.0-0.4); BILIRUBIN,TOTAL 1.3 mg/dL (0.2-1.3); BLOOD UREA NITROGEN 15 mg/dL (7-20); CALCIUM 8.2 mg/dL (8.4-10.2); CARBON DIOXIDE 26 mmol/L (22-30); CHLORIDE 104 mmol/L (98-107); CREATINE KINASE 1337 U/L (55-170); GLUCOSE 88 mg/dL (75-110); POTASSIUM 4.2 mmol/L (3.6-5.0); TOTAL PROTEIN 8.6 g/dL (6.3-8.2)
[2019-10-22 16:01] LABS: PLATELET COUNT 67 10^3/uL (150-450)
[2019-10-22 16:09] LABS: ALCOHOL 443 mg/dL (NONE DETECTED)
--- NOTE | 2019-10-22 17:39 | ER Document Report ---
Entered by ALINA MCCARTY SCRIBE 10/22/19 1518 Acting as scribe for:JAVIER RG MD ED Substance Abuse / Acc. OD - General Chief Complaint: ETOH Abuse Stated Complaint: POSSIBLE ETOH Time Seen by Provider: 10/22/19 15:02 Mode of Arrival: Medic Information source: Patient Notes: This 44 year old male patient presents to the emergency department today after a bystander called EMS as he was passed out drunk in the grass [place]. This patient was seen 4 days ago for the same complaint, he was found passed out drunk behind an bias cutter's office on [facility]. Patient has no complaints. Patient will not answer any questions. TRAVEL OUTSIDE OF THE [place].S. IN LAST 30 DAYS: No - HPI Patient complains to provider of: Alcohol abuse Overdose of: Alcohol - Related Data Allergies/Adverse Reactions: No Known Allergies Allergy (Verified 10/17/19 16:29) Past Medical History - General Information source: Patient - Social History Smoking Status: Current Every Day Smoker Cigarette use (# per day): Yes Frequency of alcohol use: Heavy Drug Abuse: None Lives with: Homeless Family History: Reviewed & Not Pertinent, DM - Past Medical History Cardiac Medical History: Reports: Hx Hypertension Pulmonary Medical History: Reports: Hx Asthma - as a child, Hx Bronchitis Psychiatric Medical History: Reports: Hx Anxiety, Hx Depression Surgical Hx: Negative - Immunizations Immunizations up to date: Yes Hx Diphtheria, Pertussis, Tetanus Vaccination: Yes Review of Systems - Review of Systems -: Yes ROS unobtainable due to patient's medical condition - intoxicated Physical Exam - Notes Notes: Physical Exam: General: Alert, arousable, smells of EtOH, will not answer questions. HEENT: Normocephalic. Atraumatic. PERRLA. Extraocular movements intact. Oropharynx clear. Neck: Supple. Respiratory: No respiratory distress. Abdominal: Normal Inspection. No distension. Extremities: Moves all four extremities. Neurological: Unable to assess because of intoxication Psychological: Unable to assess because of intoxication Skin: Warm. Dry. Normal color. Course - Re-evaluation Re-evalutation: 10/22/19 18:16 At 1520 this afternoon the patient's alcohol level was 443 mg percent, and his CK enzyme level was 1337. The alcohol level is slightly higher and the CK enzyme level is slightly lower than it was when he was seen here 5 days ago for the same problem. Again, it will be approximately 6 AM before his alcohol level is low enough to be safely discharged. He received IV fluid hydration during that time to help reduce the elevated CK enzymes in his system. - Laboratory Result Diagrams: 10/22/19 15:20 10/22/19 15:20 Laboratory results interpreted by me: 10/22/19 10/22/19 10/22/19 14:58 15:20 15:20 RBC 4.28 L MCH 33.6 H RDW 16.5 H Plt Count 67 L Lymph % (Auto) 49.2 H Seg Neutrophils % 39.8 L Calcium 8.2 L AST 180 H ALT 88 H Alkaline Phosphatase 129 H Creatine Kinase 1337 H Total Protein 8.6 H Urine Blood SMALL H Serum Alcohol 443 H* - Transfer of Care Care transferred to following provider: Dr. Scanlon Notes: 10/22/19 18:35 Patient will receive IV fluids to help lower his CK muscle enzyme level. Calculating his alcohol dissipation rate, he will be near a safe level discharge about 6:00 in the morning. Discharge - Discharge Clinical Impression: Acute alcohol intoxication in patient with alcoholism with blood alcohol level over 0.3 Qualifiers: Complication of substance-induced condition: uncomplicated Qualified Code(s): F10.220 - Alcohol dependence with intoxication, uncomplicated Rhabdomyolysis Qualifiers: Rhabdomyolysis type: non-traumatic Qualified Code(s): M62.82 - Rhabdomyolysis Condition: Stable Disposition: HOME, SELF-CARE Additional Instructions: Acute Alcohol Intoxication: Your evaluation revealed very high levels of alcohol. You can from drinking a large amount of alcohol rapidly! Further, there's the risk of falls, traffic accidents, and fights. A high portion (about 50 percent) of the serious injuries seen in hospital emergency rooms are caused by alcohol. Alcohol overdosage is usually due to an underlying emotional or psychiatric problem. You may benefit from counselling. If "binge" drinking is an ongoing problem for you, or if you drink ANY AMOUNT of alcohol EVERY day, you most likely have a tendency to alcoholism. You should avoid alcohol totally. We can refer you for treatment. Persons with alcohol problems are often also prone to other addictions -- you should discuss any use of medications or drugs with the doctor. You should be watched at home for the next several hours by someone who has not been drinking. Get extra fluids for the next 24 hours. Call the doctor if there is repeated vomiting, increasing headache, decreasing level of alertness, or any other worsening. Rhabdomyolysis: Your muscle enzyme elevation was not quite as severe as it was when you presented here 5 days ago. Your alcohol level was a little higher today than it was 5 days ago. Again the instructions are to stop drinking alcohol in excess, and drink plenty of water and fluids for the next few days to help reduce the muscle enzymes in your bloodstream. Follow-up with [facility] for help with your alcoholism. RETURN TO THE EMERGENCY ROOM IF ANY NEW OR WORSENING SYMPTOMS. I personally performed the services described in the documentation, reviewed and edited the documentation which was dictated to the scribe in my presence, and it accurately records my words and actions.
[2019-10-22] MEDS: NORMAL SALINE 1000 ML 1,000 ML IV PRN ×2 (18:20→20:22)
[2019-10-23 00:51] VITALS: BP 122/85
== END 2019-10-23 07:16 | disposition home or self-care (01) ==
LOC: ER 14:52
DX: F10.220 Alcohol dependence with intoxication, uncomplicated (principal); Y90.8 Blood alcohol level of 240 mg/100 ml or more; M62.82 Rhabdomyolysis; F17.210 Nicotine dependence, cigarettes, uncomplicated; I10 Essential (primary) hypertension
CPT/HCPCS: 99284; 96360; 96361; 36415; 80307 ×2; 82550; 85025; 80053; 81001; J7030

== ENCOUNTER 2020-03-09 20:31 | Emergency (ER) | payer SELFPAY ==
--- NOTE | 2020-03-09 22:14 | ER Document Report ---
ED Medical Screen (RME) - General Stated Complaint: CHEST PAIN ALSO HAS A NUMBER OF COVID SYMPTOMS Time Seen by Provider: 03/09/20 21:08 Notes: HPI: 44-year-old alcoholic male presenting for chest pain. Patient is a poor historian. Patient states the pain has been ongoing for days. Patient does admit to alcohol use today. No specific shortness of breath PHYSICAL EXAMINATION: Lung sounds are clear to auscultation regular rate and rhythm. Patient is slurring his speech at this time I have greeted and performed a rapid initial assessment of this patient. A comprehensive ED assessment and evaluation of the patient, analysis of test results and completion of medical decision making process will be conducted by an additional ED providers. Please note that clinical decision making for this patient was made during the 2019 pandemic of novel coronavirus which caused a significant strain on the healthcare system including at this particular facility. Criteria for admission discharge and level of care decisions as well as treatment decisions have necessarily changed TRAVEL OUTSIDE OF THE U.S. IN LAST 30 DAYS: No - Related Data Allergies/Adverse Reactions: No Known Allergies Allergy (Verified 03/09/20 22:10) Past Medical History - Social History Family history: Reviewed & Not Pertinent - Past Medical History Cardiac Medical History: Reports: Hx Hypertension Denies: Hx Coronary Artery Disease Pulmonary Medical History: Reports: Hx Asthma - as a child, Hx Bronchitis Denies: Hx COPD Neurological Medical History: Denies: Hx Seizures Endocrine Medical History: Denies: Hx Diabetes Mellitus Type 1, Hx Diabetes Mellitus Type 2, Hx Hyperthyroidism, Hx Hypothyroidism Renal/ Medical History: Denies: Hx Peritoneal Dialysis GI Medical History: Denies: Hx Cirrhosis, Hx Crohn's Disease, Hx Hepatitis, Hx Ulcerative Colitis Musculoskeltal Medical History: Denies Hx Arthritis, Denies Hx Gout Skin Medical History: Denies Hx Eczema, Denies Hx Psoriasis Psychiatric Medical History: Reports: Hx Anxiety, Hx Depression Infectious Medical History: Denies: Hx Hepatitis - Immunizations Immunizations up to date: Yes Hx Diphtheria, Pertussis, Tetanus Vaccination: Yes Physical Exam - Vital signs Vitals: Temp Pulse Resp BP Pulse Ox 98.6 F 105 H 20 139/82 H 97 03/09/20 20:48 03/09/20 20:48 03/09/20 20:48 03/09/20 20:48 03/09/20 20:48 Course - Vital Signs Vital signs: Temp Pulse Resp BP Pulse Ox 98.6 F 105 H 20 139/82 H 97 03/09/20 20:48 03/09/20 20:48 03/09/20 20:48 03/09/20 20:48 03/09/20 20:48
--- NOTE | 2020-03-09 22:32 | ER Document Report ---
ED General - General Chief Complaint: Chest Pain Stated Complaint: CHEST PAIN ALSO HAS A NUMBER OF COVID SYMPTOMS Time Seen by Provider: 03/09/20 21:08 Mode of Arrival: Ambulatory Information source: Patient Notes: 44-year-old alcoholic male presenting for chest pain. Patient is a poor histor lana. Patient states the pain has been ongoing for days. Patient does admit to alcohol use today. No specific shortness of breath TRAVEL OUTSIDE OF THE [place] IN LAST 30 DAYS: No - Related Data Allergies/Adverse Reactions: No Known Allergies Allergy (Verified 03/09/20 22:10) Past Medical History - General Information source: Patient - Social History Smoking Status: Current Every Day Smoker Frequency of alcohol use: Heavy Drug Abuse: None Family History: Reviewed & Not Pertinent, DM - Past Medical History Cardiac Medical History: Reports: Hx Hypertension Pulmonary Medical History: Reports: Hx Asthma - as a child, Hx Bronchitis Renal/ Medical History: Denies: Hx Peritoneal Dialysis Psychiatric Medical History: Reports: Hx Anxiety, Hx Depression Infectious Medical History: Denies: Hx Hepatitis - Immunizations Immunizations up to date: Yes Hx Diphtheria, Pertussis, Tetanus Vaccination: Yes Review of Systems - Review of Systems Cardiovascular: Chest pain -: Yes All other systems reviewed and negative Physical Exam - Vital signs Vitals: Temp Pulse Resp BP Pulse Ox 98.6 F 105 H 20 139/82 H 97 03/09/20 20:48 03/09/20 20:48 03/09/20 20:48 03/09/20 20:48 03/09/20 20:48 - Notes Notes: PHYSICAL EXAMINATION: GENERAL: Well-appearing, well-nourished and in no acute distress, smells of EtOH. HEAD: Atraumatic, normocephalic. EYES: Pupils equal round and reactive to light, extraocular movements intact, sclera anicteric, conjunctiva are normal. ENT: Nares patent, oropharynx clear without exudates. Moist mucous membranes. NECK: Normal range of motion, supple without lymphadenopathy LUNGS: Breath sounds clear to auscultation bilaterally and equal. No wheezes rales or rhonchi. HEART: Regular rate and rhythm without murmurs ABDOMEN: Soft, nontender, nondistended abdomen. No guarding, no rebound. No masses appreciated. Musculoskeletal: Normal range of motion, no pitting or edema. No cyanosis. NEUROLOGICAL: Cranial nerves grossly intact. Normal speech, normal gait. Normal sensory, motor exams PSYCH: Normal mood, normal affect. SKIN: Warm, Dry, normal turgor, no rashes or lesions noted. Course - Vital Signs Vital signs: Temp Pulse Resp BP Pulse Ox 98.4 F 88 18 131/76 H 98 03/10/20 02:28 03/10/20 02:28 03/10/20 02:28 03/10/20 02:28 03/10/20 02:28 - Laboratory Results Result Diagrams: 03/09/20 22:47 03/09/20 22:47 Laboratory Results Interpreted: 03/09/20 03/09/20 22:47 22:47 RBC 4.14 L MCHC 36.4 H RDW 14.4 H Plt Count 122 L Glucose 113 H AST 102 H Alkaline Phosphatase 153 H Creatine Kinase 1096 H Serum Alcohol 346 H* Critical Laboratory Results Reviewed: Yes Attending or Supervising Physician who Reviewed Labs: BERNIE BONNER etoh - Radiology Results Critical Radiology Results Reviewed: No Critical Results - EKG Interpretation by Me EKG shows normal: Sinus rhythm - RATE 104, [place], Intervals, QRS Complexes, ST-T Waves Rate: Tachycardia Discharge - Discharge Clinical Impression: ETOH abuse, Elevated CK Condition: Stable Disposition: HOME, SELF-CARE
[2020-03-09 23:02] LABS: ABSOLUTE BASOPHILS # (AUTO) 0.1 10^3/uL (0.0-0.2); ABSOLUTE EOSINOPHILS # (AUTO) 0.1 10^3/uL (0.0-0.6); ABSOLUTE LYMPHOCYTES (AUTO) 2.5 10^3/uL (0.5-4.7); ABSOLUTE MONOCYTES (AUTO) 0.7 10^3/uL (0.1-1.4); BASOPHILS % (AUTO) 0.7 % (0-2); EOSINOPHILS % (AUTO) 1.6 % (0-6); HEMATOCRIT 38.1 % (37.9-51.0); HEMOGLOBIN 13.9 g/dL (13.5-17.0); LYMPHOCYTES % (AUTO) 33.7 % (13-45); MEAN CORPUSCULAR HEMOGLOBIN 33.4 pg (27.0-33.4); MEAN CORPUSCULAR HGB CONC 36.4 g/dL (32.0-36.0); MEAN CORPUSCULAR VOLUME 92 fl (80-97); MONOCYTES % (AUTO) 9.4 % (3-13); PLATELET COUNT 122 10^3/uL (150-450); RED BLOOD COUNT 4.14 10^6/uL (4.35-5.55); RED CELL DISTRIBUTION WIDTH 14.4 % (11.5-14.0); SEGMENTED NEUTROPHILS % (AUTO) 54.6 % (42-78); TOTAL CELLS COUNTED % (AUTO) 100 %; WHITE BLOOD COUNT 7.4 10^3/uL (4.0-10.5)
--- NOTE | 2020-03-09 23:17 | RADIOLOGY REPORT (SQ) ---
CLINICAL HISTORY: chest pain COMPARISON: 10/17/2019. TECHNIQUE: XR CHEST 1 VIEW 03/09/2020 10:13 PM HEARING SPECIALIST FINDINGS: Cardiac silhouette is normal in size. Lungs are clear without consolidation, atelectasis, mass or edema. There is no pleural effusion. There is no pneumothorax. There are no acute osseous findings. IMPRESSION: Clear lungs.
[2020-03-09 23:22] LABS: ALBUMIN 4.2 g/dL (3.5-5.0); ALKALINE PHOSPHATASE 153 U/L (38-126); ANION GAP 11 (5-19); ASPARTATE AMINO TRANSFERASE 102 U/L (17-59); BILIRUBIN,DIRECT 0.1 mg/dL (0.0-0.4); BILIRUBIN,TOTAL 0.9 mg/dL (0.2-1.3); BLOOD UREA NITROGEN 19 mg/dL (7-20); CALCIUM 8.5 mg/dL (8.4-10.2); CARBON DIOXIDE 22 mmol/L (22-30); CHLORIDE 106 mmol/L (98-107); CREATINE KINASE 1096 U/L (55-170); GLUCOSE 113 mg/dL (75-110); POTASSIUM 4.7 mmol/L (3.6-5.0); TOTAL PROTEIN 7.8 g/dL (6.3-8.2)
[2020-03-09 23:41] LABS: ALCOHOL 346 mg/dL (NONE DETECTED)
[2020-03-10] MEDS: NORMAL SALINE 1000 ML 1,000 ML IV PRN ×2 (00:01→01:04)
--- NOTE | 2020-03-10 02:03 | EKG REPORT ---
SEVERITY:- BORDERLINE ECG - SINUS TACHYCARDIA BORDERLINE T ABNORMALITIES, ANT-LAT LEADS : Confirmed by: Sammi Spears MD 10-Mar-2020 02:02:30
[2020-03-10 07:02] VITALS: BP 135/68
== END 2020-03-10 07:00 | disposition home or self-care (01) ==
LOC: ER 20:31
DX: F10.10 Alcohol abuse, uncomplicated (principal); R07.9 Chest pain, unspecified; R79.89 Other specified abnormal findings of blood chemistry; R00.0 Tachycardia, unspecified; I10 Essential (primary) hypertension; F17.200 Nicotine dependence, unspecified, uncomplicated
CPT/HCPCS: 93005; 99285; 96360; 96361; 36415; 80307; 82550; 85025; 80053; 84484; 71045; 93010; J7030

== ENCOUNTER 2020-03-10 14:15 | Emergency (ER) | payer SELFPAY ==
[2020-03-10] MEDS ORDERED: NORMAL SALINE 1000 ML 1,000 ML IV ONE (15:11)
--- NOTE | 2020-03-10 15:19 | ER Document Report ---
ED General - General Chief Complaint: ETOH Abuse Stated Complaint: ETOH Time Seen by Provider: 03/10/20 15:05 TRAVEL OUTSIDE OF THE [place] IN LAST 30 DAYS: No - HPI Notes: Patient is a 44-year-old male with longstanding history of chronic alcoholism who presents emergency department for evaluation of elevated alcohol level. I asked him why he is here, he states that it is because his life "fing sucks." He states he was drinking beer. He denies any suicidal or homicidal ideation. No visual or auditory hallucination. He denies any pain of any sort. He states has been eating and drinking. He states has been staying in different places. One of the places he says he has been staying is at this hospital. He denies any other acute issues at this time. - Related Data Allergies/Adverse Reactions: No Known Allergies Allergy (Verified 03/09/20 22:10) Past Medical History - General Information source: Patient - Social History Smoking Status: Unknown if Ever Smoked Chew tobacco use (# tins/day): No Frequency of alcohol use: Heavy Family History: Reviewed & Not Pertinent, DM - Past Medical History Cardiac Medical History: Reports: Hx Hypertension Denies: Hx Coronary Artery Disease Pulmonary Medical History: Reports: Hx Asthma - as a child, Hx Bronchitis Denies: Hx COPD Neurological Medical History: Denies: Hx Seizures Endocrine Medical History: Denies: Hx Diabetes Mellitus Type 1, Hx Diabetes Mellitus Type 2, Hx Hyperthyroidism, Hx Hypothyroidism Renal/ Medical History: Denies: Hx Peritoneal Dialysis GI Medical History: Denies: Hx Cirrhosis, Hx Crohn's Disease, Hx Hepatitis, Hx Ulcerative Colitis Musculoskeletal Medical History: Denies Hx Arthritis, Denies Hx Gout Skin Medical History: Denies Hx Eczema, Denies Hx Psoriasis Psychiatric Medical History: Reports: Hx Anxiety, Hx Depression Infectious Medical History: Denies: Hx Hepatitis - Immunizations Immunizations up to date: Yes Hx Diphtheria, Pertussis, Tetanus Vaccination: Yes Review of Systems - Review of Systems Constitutional: No symptoms reported EENT: No symptoms reported Cardiovascular: No symptoms reported Respiratory: No symptoms reported Gastrointestinal: No symptoms reported Genitourinary: No symptoms reported Musculoskeletal: No symptoms reported Skin: No symptoms reported Neurological/Psychological: See HPI Physical Exam - Vital signs Vitals: Temp Pulse Resp BP Pulse Ox 98.0 F 81 18 138/82 H 99 03/10/20 14:28 12/16/20 14:28 03/10/20 14:28 03/10/20 14:28 03/10/20 14:28 - Notes Notes: This is a 44-year-old male who appears his stated age. His hygiene is actually improved over normal, although his pants are significantly wet from the rain. He smells strongly of alcohol. Vital signs reviewed, please refer to chart. Head is normocephalic, atraumatic. Pupils equal round, reactive to light. Neck is supple without meningismus. Heart is regular rate and rhythm. Lungs are clear to auscultation bilaterally. Abdomen is soft, nontender, normoactive bowel sounds throughout. Extremities without cyanosis, clubbing. Posterior calves are nontender. Peripheral pulses are equal. Skin is warm and dry. Patient is drowsy but awakes to verbal and tactile stimuli. He is oriented x3. Mild dysarthria consistent with alcohol intoxication. Course - Re-evaluation Re-evalutation: 03/10/20 15:19 Patient presents emergency department for evaluation. I will give him IV fluids . He is well-known to the ED and has no acute complaints. We will wait for him to be more clinically sober. He remained stable. 03/10/20 19:00 Patient has been stable throughout the course of his stay. He has been resting comfortably. Now he wakes easily to verbal stimuli. He denies any complaints or concerns. He is oriented. We will ambulate him in the schmitt to check for clinical sobriety. 03/10/20 19:36 Patient ambulated without any sort of difficulty. He is clinically sober. He has no acute complaints. He is stable for discharge. - Vital Signs Vital signs: Temp Pulse Resp BP Pulse Ox 98.0 F 76 16 129/80 H 98 03/10/20 17:44 03/10/20 17:44 03/10/20 17:44 03/10/20 17:44 03/10/20 17:44 - Laboratory Results Critical Laboratory Results Reviewed: No Critical Results - Radiology Results Critical Radiology Results Reviewed: No Critical Results Discharge - Discharge Clinical Impression: ETOH abuse Acute alcohol intoxication Qualifiers: Complication of substance-induced condition: uncomplicated Qualified Code(s): F10.920 - Alcohol use, unspecified with intoxication, uncomplicated Condition: Stable Disposition: HOME, SELF-CARE Instructions: Chronic Alcoholism ([facility]) Additional Instructions: Please try to cut down on your drinking. Follow-up with your primary care provider. Return to the emergency department with worsening or new concerning symptoms of any sort.
[2020-03-10 17:45] VITALS: BP 129/80
== END 2020-03-10 20:31 | disposition home or self-care (01) ==
LOC: ER 14:15
DX: F10.220 Alcohol dependence with intoxication, uncomplicated (principal); I10 Essential (primary) hypertension
CPT/HCPCS: 99284; 96360; J7030